=== PATIENT | female | born 1945 | race Caucasian/White ===

== ENCOUNTER → 2020-11-05 | Outpatient (CLI) | payer MEDICARE ==
[2020-11-05 17:26] LABS: T4, Free (Free Thyroxine) 1.3 ng/dL (0.80-1.80)
[2020-11-05 17:50] LABS: African American GFR (CKD) 10.9 (60.0-200.0); Anion Gap 9.7 mmol/L (4.00-12.00); BUN/Creat Ratio 8.6 Ratio (12.00-20.00); Calcium 9.2 mg/dL (8.7-10.3); Carbon Dioxide 31.3 mmol/L (21.6-31.8); Chol/HDL Ratio 2.82; LDL Cholesterol,Calculated 35.2 mg/dL (0.0-131.0); Non-African American GFR(CKD) 9.4 (60.0-200.0); VLDL Calculation 15.8 mg/dL (5.00-40.00)
[2020-11-05 21:43] LABS: Hemoglobin A1C 9.3 % (4.0-6.0)
== END | disposition home or self-care (01) ==
LOC: LABWHC1 09:32
PROVIDERS: ATTEND Family Medicine
DX: E11.65 Type 2 diabetes mellitus with hyperglycemia (principal); E03.9 Hypothyroidism, unspecified
CPT/HCPCS: 36415; 80048; 80061; 83036; 84439; 84443

== ENCOUNTER 2021-01-12 07:06 | Day surgery (SDC) | payer MEDICARE ==
[2021-01-11 09:38] VITALS: BMI 33.5
[~2021-01-12 07:06] MED LIST: HYDROmorphone 0.5 MG/0.5 ML SYRINGE IVP PRN; LACTATED RINGERS 1,000 ML IV SCH; LIDOCAINE 1% (10MG/ML) FOR IV START INTRADERMA PRN; ONDANSETRON 4 MG/2 ML VIAL IVP ONE
[2021-01-12] MEDS ORDERED: LACTATED RINGERS 1,000 ML IV ONE (08:06)
[2021-01-12 08:18] LABS: Glucose,Whole Blood 110 mg/dL (75-99)
[2021-01-12] MEDS ORDERED: MIDAZOLAM 2 MG/2 ML VIAL IVP ONE (08:50)
--- NOTE | 2021-01-12 09:09 | P.HPIHPCON ---
History of Present Illness H&P Date: 01/12/21 Arielle is a 75 year old female with end-stage renal disease getting dialysis currently via a chest wall dialysis catheter. She previously had a right brachiocephalic fistula creation. It was found to be of appropriate size however there was significant difficulty in accessing due to significant tor tuosity and depth. Discussion was had with the family regarding going forward with a transposition to try to continue to utilize this area. Again a repeat ultrasound was performed showing adequate size no evidence of areas of stenosis. Consent for Procedure: I have explained the operation/procedure to the patient, including the risks, benefits, side effects, alternative therapies (including not receiving the proposed treatment or service), the likelihood of the patient achieving his/her goals, and potential recuperation problems for the procedure/sedation/analgesia, as well as any blood products, if indicated. I also explained to the patient the risks, benefits and side effects of the alternatives, as well as the risks related to not receiving the proposed procedure, care, treatment, or services. Past Medical History Past Medical History: Coronary Artery Disease (CAD), Cancer, CVA/TIA, Diabetes Mellitus, Hyperlipidemia, Hypertension, Myocardial Infarction ([place]), Osteoarthritis (OA), Renal Disease, Sleep Apnea/CPAP/BIPAP, Thyroid Disorder Additional Past Medical History / Comment(s): stroke Jan 2020-diff walking-uses a walker also effects speech, no cpap used, diarrhea, hemodialysis MOWEFR, hx breast cancer(radiation) Last Myocardial Infarction Date:: unknown History of Any Multi-Drug Resistant Organisms: MRSA Date of last positivie culture/infection: 2017 MDRO Source:: face Past Surgical History: Breast Surgery, Cholecystectomy, Coronary Bypass/CABG, Hysterectomy, Joint Replacement Additional Past Surgical History / Comment(s): left breast lumpectomy, mary jane knee replacement, mary jane cataracts, triple CABG 45-5 yrs ago, port in chest for dialysis Past Anesthesia/Blood Transfusion Reactions: No Reported Reaction Smoking Status: Never smoker - Past Family History Daughter(s) Family Medical History: Cancer Additional Family Medical History / Comment(s): breast Medications and Allergies Home Medications Medication Instructions Recorded Confirmed Type Acetaminophen [Tylenol] 650 mg PO Q4H PRN 01/11/21 01/11/21 History Aspirin [Adult Low Dose Aspirin EC] 81 mg PO DAILY 01/11/21 01/11/21 History Clopidogrel [Plavix] 75 mg PO DAILY 01/11/21 01/11/21 History Diphenoxylate HCl/Atropine 1 tab PO BID PRN 01/11/21 01/11/21 History [Lomotil 2.5-0.025 mg Tablet] Docusate [Colace] 100 mg PO DAILY PRN 01/11/21 01/11/21 History Insulin Aspart [NovoLOG Flexpen] 10 units SQ ACHS PRN 01/11/21 01/11/21 History Insulin Degludec [Tresiba] 16 units SQ QAM 01/11/21 01/11/21 History Levothyroxine Sodium [Synthroid] 75 mcg PO DAILY 01/11/21 01/11/21 History Metoprolol Tartrate [Lopressor] 50 mg PO BID 01/11/21 01/11/21 History Nitroglycerin 0.4 mg SUBLINGUAL Q5M PRN 01/11/21 01/11/21 History Ondansetron [Zofran] 4 mg PO DAILY PRN 01/11/21 01/11/21 History Pantoprazole [Protonix] 40 mg PO DAILY 01/11/21 01/11/21 History Prochlorperazine [Compazine] 10 mg PO Q8H PRN 01/11/21 01/11/21 History Rivastigmine 4.6MG/24Hr Patch 1 patch TRANSDERM Q24HR 01/11/21 01/11/21 History [Exelon 4.6MG/24Hr Patch] Rosuvastatin [Crestor] 10 mg PO HS 01/11/21 01/11/21 History Triphrocaps 1 tab PO HS 01/11/21 01/11/21 History amLODIPine [Norvasc] 2.5 mg PO BID 01/11/21 01/11/21 History Allergies Allergy/AdvReac Type Severity Reaction Status Date / Time Iodinated Contrast Media Allergy Severe Anaphylaxis Verified 01/11/21 09:06 latex Allergy Itching Verified 01/11/21 09:07 Surgical - Exam Vital Signs Temp Pulse Resp BP Pulse Ox 98.2 F 80 18 146/66 93 L 01/12/21 08:05 01/12/21 08:05 01/12/21 08:05 01/12/21 08:05 01/12/21 08:05 Gen. is a pleasant and cooperative female in no acute distress resting comfortably. HEENT is normocephalic, atraumatic, extraocular motion intact. Heart appears regular at this time. Lungs are clear bilaterally although diminished. Extremities show no clubbing cyanosis or edema. Her right upper extremity fistula has a good palpable thrill. Normal mood and affect. Cranial nerves II through XII grossly intact although weak overall Results - Labs Abnormal Lab Results - Last 24 Hours (Table) 01/12/21 Range/Units 08:14 POC Glucose (mg/dL) 110 H (75-99) mg/dL Assessment and Plan Assessment: End-stage renal disease Non-utilizable right upper extremity brachial cephalic fistula Plan: Plan for a brachiocephalic fistula transposition. Risks and benefits were discussed. Seemingly understand.
[2021-01-12] MEDS ORDERED: fentaNYL (PF) 50 MCG/ML 2 ML AMP ONE (09:15)
[2021-01-12] MEDS ORDERED: ceFAZolin 1,000 MG VIAL ONE (09:15)
[2021-01-12] MEDS ORDERED: PROPOFOL 10 MG/ML 20 ML VIAL IV ONE (09:15)
[2021-01-12] MEDS ORDERED: ROPIVACAINE 5 MG/ML 30 ML VIAL ONE (09:15)
[2021-01-12] MEDS ORDERED: HEPARIN SODIUM,PORCINE 5,000 UNIT/ML 1 ML VIAL ONE (09:15)
[2021-01-12] MEDS ORDERED: SODIUM CHLORIDE 0.9% 100 ML BAG ONE (09:15)
[2021-01-12] MEDS ORDERED: SODIUM CHLORIDE 0.9% 500 ML 500 ML IV ONE (09:19)
[2021-01-12] MEDS ORDERED: LIDOCAINE 1% INJ 10MG/ML (20 ML MDV) SQ ONE ×2 (09:40)
[2021-01-12] MEDS ORDERED: HEPARIN SODIUM,PORCINE 2,000 UNIT in SODIUM CHLORIDE 0.9% 500 ML 500 ML IRRIGATION ONE (09:40)
[2021-01-12] MEDS ORDERED: ceFAZolin 2,000 MG in SODIUM CHLORIDE 0.9% 500 ML IRRIGATION ONE (09:40)
[2021-01-12] MEDS ORDERED: BUPIVACAINE (PF) 0.5% 30 ML VIAL SQ ONE ×2 (09:40)
--- NOTE | 2021-01-12 10:00 | P.ANPRN ---
Procedure Note - Anesthesia - Nerve Block Performed Right Supraclavicular Time Out Performed: Yes (08:49) Date of Procedure: 01/12/21 Procedure Start Time: :49 Procedure Stop Time: :58 Location of Patient: PreOp Indication: Acute Post-Operative Pain, Requested by Surgeon (Dr Nicolas) Sedation Type: Sedate with meaningful contact maintained Preparation: Sterile Prep Position: Supine Catheter: None Needle Types: Pajunk Needle Gauge: Other (see comment) (22g) Ultrasound used to visualize needle placement: Yes Ultrasound used to observe medication spread: Yes Injectate: 0.5% Ropivacaine (see comment for volume) (20cc) Blood Aspirated: No Pain Paresthesia on Injection Noted: No Resistance on Injection: Normal Image Stored and Saved: Yes Events: Uneventful and Well Tolerated
[2021-01-12] MEDS ORDERED: GELATIN SPONGE,ABSORB (LARGE) 1 EACH SPONGE TOPICAL ONE ×2 (12:10→13:54)
[2021-01-12] MEDS ORDERED: THROMBIN (BOVINE) 5,000 UNIT VIAL TOPICAL ONE ×2 (12:10→13:54)
[2021-01-12 14:48] VITALS: TEMP 96.8
--- NOTE | 2021-01-12 14:53 | P.OP ---
Date of Procedure: 01/12/21 Description of Procedure: Preoperative diagnosis: End-stage renal disease, non-utilizable right upper extremity brachiocephalic fistula, tortuosity and depth Postoperative diagnosis: Same Procedure: Brachiocephalic fistula transposition Surgeon: Sally Nicolas D.O. EBL: [200 mL] IV fluids: [see records] Urine output: [not measured] Drains: [None] Complications: [None immediately apparent] Condition: [Stable to recovery] Operative indication and findings: [Patient is a 75-year-old female who has a right upper extremity brachiocephalic fistula that was created previously but unfortunately was unable to be utilized due to its tortuosity and depth. She has been using a tunneled dialysis catheter for dialysis at this time. It was decided she might be a candidate for a transposition of this area therefore risks and benefits were discussed and she is brought in today for this procedure. She seemingly understood and wanted to proceed] Procedure in detail: [The patient was taken to the operative suite and placed in supine position. The right upper extremity is prepped and draped in usual sterile fashion. A preprocedure timeout was performed, all parties were in agreement. Once anesthesia was adequate, incision was made over the previous incision at the level of the radial cephalic anastomosis. The incision was carried down through the scar tissue and subcuticular tissues to the level of the fistula itself. There is very dense adherent scar tissue throughout the for tedious dissection was performed to encircle the fistula. This is then dissected free in the direction of the vein. There was significant amounts of scar tissue throughout this area and previous areas of clip placement. That point a little further proximally, a counterincision was made overlying the vein. The subcutaneous tissues divided with electrocautery to the level of the vein which was encircled again there was a more than normal amount of scar tissue in the area therefore tediously the vein was dissected. This is dissected to the point at which the proximal and distal portions were in conjunction and the vein was dissected free throughout. The vein was then ligated at the portion just distal to the anastomosis. The stump was oversewn with 6-0 Prolene in running fashion with good hemostasis. The vein was then brought out through the secondary incision. Further dissection was performed around the vein more proximally in the arm and again this was done circumferentially. Another counterincision was made more proximal in the arm and at that level unfortunately we did enter the fistula. Bleeding was stopped with running suture of 6-0 Prolene. At that point given the level of dissection and the amount of scarred adherent tissue, the skin bridges were cut along the secondary incision to create a larger incision. The vein was then continued to be dissected free and was up to the level just about the shoulder. At that point the brachial artery more proximally to the previous anastomosis was identified and was encircled proximally and distally with vessel loops. With appropriate tension on the flaps, tunnel was made in a more superficial position.. The patient was heparinized and flow was occluded through the brachial artery. An arteriotomy was performed. There was significant calcific disease to the brachial artery as well. An anastomosis was created between the artery and cephalic vein with 6-0 Prolene. Prior to conclusion of the anastomosis the artery was flushed and the vein was allowed to backbleed. The anastomosis completed. Interrupted sutures of 6-0 Prolene were used to aid in hemostasis. A Gelfoam. There was an area of the vein in the upper incision that did have some bleeding therefore an interrupted [id number] suture of 6-0 Prolene was placed with adequate hemostasis. The area was then copiously irrigated and there was no evidence of active bleeding through the tunnel. The incisions then were closed with deep dermal 3-0 Vicryl in interrupted fashion and the skin was reapproximated with running 4-0 Monocryl subcu tissue fashion. Dressing and light pressure dressing was placed. The patient was allowed awaken from anesthesia and transferred to recovery in stable condition having tolerated her procedure well.] Plan - Discharge Summary Discharge Rx Participant: No New Discharge Prescriptions: New Acetaminophen-Codeine 300-30mg [Tylenol w/codeine #3] 1 tab PO Q4H PRN 3 Days #18 tablet PRN Reason: Pain No Action Aspirin [Adult Low Dose Aspirin EC] 81 mg PO DAILY Clopidogrel [Plavix] 75 mg PO DAILY Docusate [Colace] 100 mg PO DAILY PRN PRN Reason: Constipation Insulin Aspart [NovoLOG Flexpen] 10 units SQ ACHS PRN PRN Reason: Blood Sugar - High Ondansetron [Zofran] 4 mg PO DAILY PRN PRN Reason: Nausea And Vomiting Rivastigmine 4.6MG/24Hr Patch [Exelon 4.6MG/24Hr Patch] 1 patch TRANSDERM Q24HR Triphrocaps 1 tab PO HS Acetaminophen [Tylenol] 650 mg PO Q4H PRN PRN Reason: Pain amLODIPine [Norvasc] 2.5 mg PO BID Diphenoxylate HCl/Atropine [Lomotil 2.5-0.025 mg Tablet] 1 tab PO BID PRN PRN Reason: Diarrhea Insulin Degludec [Tresiba] 16 units SQ QAM Levothyroxine Sodium [Synthroid] 75 mcg PO DAILY Metoprolol Tartrate [Lopressor] 50 mg PO BID Pantoprazole [Protonix] 40 mg PO DAILY Prochlorperazine [Compazine] 10 mg PO Q8H PRN PRN Reason: Nausea Rosuvastatin [Crestor] 10 mg PO HS Nitroglycerin 0.4 mg SUBLINGUAL Q5M PRN PRN Reason: Chest Pain Discharge Medication List Acetaminophen [Tylenol] 650 mg PO Q4H PRN 01/11/21 [History] Aspirin [Adult Low Dose Aspirin EC] 81 mg PO DAILY 01/11/21 [History] Clopidogrel [Plavix] 75 mg PO DAILY 01/11/21 [History] Diphenoxylate HCl/Atropine [Lomotil 2.5-0.025 mg Tablet] 1 tab PO BID PRN 01/11/21 [History] Docusate [Colace] 100 mg PO DAILY PRN 01/11/21 [History] Insulin Aspart [NovoLOG Flexpen] 10 units SQ ACHS PRN 01/11/21 [History] Insulin Degludec [Tresiba] 16 units SQ QAM 01/11/21 [History] Levothyroxine Sodium [Synthroid] 75 mcg PO DAILY 01/11/21 [History] Metoprolol Tartrate [Lopressor] 50 mg PO BID 01/11/21 [History] Nitroglycerin 0.4 mg SUBLINGUAL Q5M PRN 01/11/21 [History] Ondansetron [Zofran] 4 mg PO DAILY PRN 01/11/21 [History] Pantoprazole [Protonix] 40 mg PO DAILY 01/11/21 [History] Prochlorperazine [Compazine] 10 mg PO Q8H PRN 01/11/21 [History] Rivastigmine 4.6MG/24Hr Patch [Exelon 4.6MG/24Hr Patch] 1 patch TRANSDERM Q24HR 01/11/21 [History] Rosuvastatin [Crestor] 10 mg PO HS 01/11/21 [History] Triphrocaps 1 tab PO HS 01/11/21 [History] amLODIPine [Norvasc] 2.5 mg PO BID 01/11/21 [History] Acetaminophen-Codeine 300-30mg [Tylenol w/codeine #3] 1 tab PO Q4H PRN 3 Days #18 tablet 01/12/21 [Rx] Follow up Appointment(s)/Referral(s): Sally Nicolas DO [STAFF PHYSICIAN] - 1 Week Activity/Diet/Wound Care/Special Instructions: Leave dressing in place for 2 days. May shower once the dressing is removed. Likely to be bruising. May resume home medications and activity as tolerated Discharge Disposition: HOME SELF-CARE
[2021-01-12 15:02] LABS: Glucose,Whole Blood 120 mg/dL (75-99)
[2021-01-12 16:19] VITALS: BP 137/65; PULSE 94; RESP 16
== END 2021-01-12 16:22 | disposition home or self-care (01) ==
LOC: OR 07:06
PROVIDERS: ATTEND Surgery
DX: I12.0 Hypertensive chronic kidney disease with stage 5 chronic kidney disease or end stage renal disease (principal); N18.6 End stage renal disease; I25.10 Atherosclerotic heart disease of native coronary artery without angina pectoris; E11.9 Type 2 diabetes mellitus without complications; E78.5 Hyperlipidemia, unspecified; M19.90 Unspecified osteoarthritis, unspecified site; E07.9 Disorder of thyroid, unspecified; I25.2 Old myocardial infarction; Z86.73 Personal history of transient ischemic attack (TIA), and cerebral infarction without residual deficits
CPT/HCPCS: 36818; 64999; 76942; J2250; J1644; J0690 ×2; J2405; J2001; J3010; J2795; J2704

== ENCOUNTER → 2021-02-16 | Outpatient (CLI) | payer MEDICARE ==
[2021-02-16 17:22] LABS: Chol/HDL Ratio 2.67 Ratio; LDL Cholesterol,Calculated 36.4 mg/dL (0.0-131.0)
[2021-02-16 17:56] LABS: African American GFR (CKD) 9.7 (60.0-200.0); BUN/Creat Ratio 6.68 Ratio (12.00-20.00); Blood Urea Nitrogen 31.4 mg/dL (9.0-27.0); Calcium 9.5 mg/dL (8.7-10.3); Carbon Dioxide 28.2 mmol/L (20.0-27.5); Chloride 95 mmol/L (96-109); Glucose 182 mg/dL (70-110); Non-African American GFR(CKD) 8.4 (60.0-200.0); Potassium 5.2 mmol/L (3.5-5.5); Sodium 139 mmol/L (135-145)
== END | disposition home or self-care (01) ==
LOC: LABWHC1 09:57
PROVIDERS: ATTEND Family Medicine
DX: E03.9 Hypothyroidism, unspecified (principal); E11.65 Type 2 diabetes mellitus with hyperglycemia
CPT/HCPCS: 36415; 80048; 80061; 83036; 84439; 84443

== ENCOUNTER 2021-03-19 18:35 | Inpatient (IN) | payer MEDICARE ==
[2021-03-19] MEDS ORDERED: ONDANSETRON 4 MG/2 ML VIAL IVP STA (18:59)
[2021-03-19] MEDS ORDERED: ACETAMINOPHEN TAB 325 MG TAB PO STA (18:59)
[2021-03-19] MEDS ORDERED: MORPHINE SULFATE 2 MG/ML SYRINGE IVP STA (18:59)
[2021-03-19] MEDS ORDERED: VANCOMYCIN IV PER PHARMACY 1 EACH MISC MISCELLANE PRN (19:00)
[2021-03-19] MEDS ORDERED: VANCOMYCIN 1,500 MG in SODIUM CHLORIDE 0.9% 250 ML IVPB STA (19:04)
--- NOTE | 2021-03-19 20:00 | ED ---
General Adult HPI - General Chief complaint: Extremity Problem,Nontraumatic Stated complaint: toe pain Time Seen by Provider: 03/19/21 18:53 Source: patient, family Mode of arrival: wheelchair Limitations: no limitations - History of Present Illness Initial comments: 76 year-old female patient presents for evaluation of wound to the left second toe with redness to the foot and leg. Patient states the wound has been present for quite some time. She did recently start receiving wound care at the wound center. She is currently taking Bactrim, has 3 doses left. She denies any fever or chills. Reports decreased appetite and nausea. Reports intermittent vomiting. No diarrhea or constipation. She does have diabetes and receives hemodialysis. She reports some pain to the foot, especially at night. Patient denies any recent rash, cough, shortness of breath, chest pain, abdominal pain, back pain, numbness, tingling, dizziness, weakness, hematuria, dysuria, urinary urgency, urinary frequency, headache, visual changes, or any other complaints. - Related Data Home Medications Medication Instructions Recorded Confirmed Acetaminophen [Tylenol] 650 mg PO Q4H PRN 01/11/21 01/11/21 Aspirin [Adult Low Dose Aspirin EC] 81 mg PO DAILY 01/11/21 01/11/21 Clopidogrel [Plavix] 75 mg PO DAILY 01/11/21 01/11/21 Diphenoxylate HCl/Atropine 1 tab PO BID PRN 01/11/21 01/11/21 [Lomotil 2.5-0.025 mg Tablet] Docusate [Colace] 100 mg PO DAILY PRN 01/11/21 01/11/21 Insulin Aspart [NovoLOG Flexpen] 10 units SQ ACHS PRN 01/11/21 01/11/21 Insulin Degludec [Tresiba] 16 units SQ QAM 01/11/21 01/11/21 Levothyroxine Sodium [Synthroid] 75 mcg PO DAILY 01/11/21 01/11/21 Metoprolol Tartrate [Lopressor] 50 mg PO BID 01/11/21 01/11/21 Nitroglycerin 0.4 mg SUBLINGUAL Q5M PRN 01/11/21 01/11/21 Ondansetron [Zofran] 4 mg PO DAILY PRN 01/11/21 01/11/21 Pantoprazole [Protonix] 40 mg PO DAILY 01/11/21 01/11/21 Prochlorperazine [Compazine] 10 mg PO Q8H PRN 01/11/21 01/11/21 Rivastigmine 4.6MG/24Hr Patch 1 patch TRANSDERM Q24HR 01/11/21 01/11/21 [Exelon 4.6MG/24Hr Patch] Rosuvastatin [Crestor] 10 mg PO HS 01/11/21 01/11/21 Triphrocaps 1 tab PO HS 01/11/21 01/11/21 amLODIPine [Norvasc] 2.5 mg PO BID 01/11/21 01/11/21 Previous Rx's Medication Instructions Recorded Acetaminophen-Codeine 300-30mg 1 tab PO Q4H PRN 3 Days #18 tablet 01/12/21 [Tylenol w/codeine #3] Allergies Allergy/AdvReac Type Severity Reaction Status Date / Time Iodinated Contrast Media Allergy Severe Anaphylaxis Verified 03/19/21 18:43 latex Allergy Itching Verified 03/19/21 18:43 Review of Systems ROS Statement: Those systems with pertinent positive or pertinent negative responses have been documented in the HPI. ROS Other: All systems not noted in ROS Statement are negative. Past Medical History Past Medical History: Coronary Artery Disease (CAD), Cancer, CVA/TIA, Diabetes Mellitus, Hyperlipidemia, Hypertension, Myocardial Infarction ([place]), Osteoarthritis ([place]), Renal Disease, Sleep Apnea/CPAP/BIPAP, Thyroid Disorder Additional Past Medical History / Comment(s): stroke Jan 2020-diff walking-uses a walker also effects speech, no cpap used, diarrhea, hemodialysis MOWEFR, hx breast cancer(radiation) Last Myocardial Infarction Date:: unknown History of Any Multi-Drug Resistant Organisms: MRSA Date of last positivie culture/infection: 2017 MDRO Source:: face Past Surgical History: Breast Surgery, Cholecystectomy, Coronary Bypass/CABG, Hysterectomy, Joint Replacement Additional Past Surgical History / Comment(s): left breast lumpectomy, mary jane knee replacement, mary jane cataracts, triple CABG 45-5 yrs ago, port in chest for dialysis Past Anesthesia/Blood Transfusion Reactions: No Reported Reaction Past Psychological History: No Psychological Hx Reported Smoking Status: Never smoker Past Alcohol Use History: None Reported Past Drug Use History: None Reported - Past Family History Daughter(s) Family Medical History: Cancer Additional Family Medical History / Comment(s): breast General Exam Limitations: no limitations General appearance: alert, in no apparent distress, other (This is a well- developed, well-nourished adult female in no acute distress.) Respiratory exam: Present: normal lung sounds bilaterally. Absent: respiratory distress, wheezes, rales, rhonchi, stridor Cardiovascular Exam: Present: regular rate, normal rhythm, normal heart sounds. Absent: systolic murmur, diastolic murmur, rubs, gallop, clicks GI/Abdominal exam: Present: soft, normal bowel sounds. Absent: distended, tenderness, guarding, rebound, rigid Extremities exam: Present: full ROM, normal capillary refill, other (There is ulcer noted to the left second toe with red streaking up the foot, patch of cellulitis to the dorsal becker. No drainage from the toe noted. Pedal and posttibial pulses diminished.). Absent: normal inspection, tenderness, pedal edema, joint swelling, calf tenderness Neurological exam: Present: alert, oriented X3, CN II-XII intact Psychiatric exam: Present: normal affect, normal mood Skin exam: Present: warm, dry, intact, normal color. Absent: rash Course Vital Signs 03/19/21 03/19/21 03/19/21 18:36 19:44 21:00 Temperature 97.7 F 97.9 F Pulse Rate 73 66 Respiratory 20 18 Rate Blood Pressure 152/68 129/62 O2 Sat by Pulse 95 95 Oximetry Medical Decision Making - Medical Decision Making 76 year-old female patient presents to the emergency department for evaluation of left 2nd toe wound with red streaking up her foot. Physical exam did reveal dry ulcer to the left dorsal toe, red streaking up the dorsal foot, and evidence for cellulitis to the left lower leg. Labs were delayed initially due to poor lab draw, when results came in there was elevated white blood cell count at 12.0. Potassium was 6.3, creatinine 7.4. We did start vancomycin and rocephin. Insulin, dextrose, and kayexalate given for high potassium. Potassium will be redrawn every 4 hours. We will consult nephrology for dialysis while in hospital. We will consult vascular for consult on the wound. Patient is agreeable to admission. Dr. Barragan accepted admission. My attending is Dr. Santiago hanson. - Lab Data Result diagrams: 03/19/21 21:16 03/19/21 21:16 Lab Results 03/19/21 03/19/21 03/19/21 Range/Units 21:10 21:16 21:16 WBC 12.0 H (3.8-10.6) k/uL RBC 3.08 L (3.80-5.40) m/uL Hgb 9.8 L (11.4-16.0) gm/dL Hct 29.6 L (34.0-46.0) % MCV 96.0 (80.0-100.0) fL MCH 31.7 (25.0-35.0) pg MCHC 33.1 (31.0-37.0) g/dL RDW 15.3 (11.5-15.5) % Plt Count 202 (150-450) k/uL MPV 7.4 Neutrophils % 84 % Lymphocytes % 8 % Monocytes % 4 % Eosinophils % 2 % Basophils % 0 % Neutrophils # 10.1 H (1.3-7.7) k/uL Lymphocytes # 1.0 (1.0-4.8) k/uL Monocytes # 0.5 (0-1.0) k/uL Eosinophils # 0.2 (0-0.7) k/uL Basophils # 0.0 (0-0.2) k/uL PT 11.1 (9.0-12.0) sec INR 1.0 (<1.2) APTT 55.0 H (22.0-30.0) sec Sodium (137-145) mmol/L Potassium (3.5-5.1) mmol/L Chloride (98-107) mmol/L Carbon Dioxide (22-30) mmol/L Anion Gap mmol/L BUN (7-17) mg/dL Creatinine (0.52-1.04) mg/dL Est GFR (CKD-EPI)AfAm (>60 ml/min/1.73 sqM) Est GFR (CKD-EPI)NonAf (>60 ml/min/1.73 sqM) Glucose (74-99) mg/dL Plasma Lactic Acid Otis 0.8 (0.7-2.0) mmol/L Calcium (8.4-10.2) mg/dL Total Bilirubin (0.2-1.3) mg/dL AST (14-36) U/L ALT (4-34) U/L Alkaline Phosphatase (38-126) U/L Total Protein (6.3-8.2) g/dL Albumin (3.5-5.0) g/dL 03/19/21 Range/Units 21:16 WBC (3.8-10.6) k/uL RBC (3.80-5.40) m/uL Hgb (11.4-16.0) gm/dL Hct (34.0-46.0) % MCV (80.0-100.0) fL MCH (25.0-35.0) pg MCHC (31.0-37.0) g/dL RDW (11.5-15.5) % Plt Count (150-450) k/uL MPV Neutrophils % % Lymphocytes % % Monocytes % % Eosinophils % % Basophils % % Neutrophils # (1.3-7.7) k/uL Lymphocytes # (1.0-4.8) k/uL Monocytes # (0-1.0) k/uL Eosinophils # (0-0.7) k/uL Basophils # (0-0.2) k/uL PT (9.0-12.0) sec INR (<1.2) APTT (22.0-30.0) sec Sodium 135 L (137-145) mmol/L Potassium 6.3 H* (3.5-5.1) mmol/L Chloride 95 L (98-107) mmol/L Carbon Dioxide 27 (22-30) mmol/L Anion Gap 13 mmol/L BUN 52 H (7-17) mg/dL Creatinine 7.41 H* (0.52-1.04) mg/dL Est GFR (CKD-EPI)AfAm 6 (>60 ml/min/1.73 sqM) Est GFR (CKD-EPI)NonAf 5 (>60 ml/min/1.73 sqM) Glucose 111 H (74-99) mg/dL Plasma Lactic Acid Otis (0.7-2.0) mmol/L Calcium 8.5 (8.4-10.2) mg/dL Total Bilirubin 0.5 (0.2-1.3) mg/dL AST 33 (14-36) U/L ALT 16 (4-34) U/L Alkaline Phosphatase 116 (38-126) U/L Total Protein 6.2 L (6.3-8.2) g/dL Albumin 3.3 L (3.5-5.0) g/dL - Radiology Data Radiology results: report reviewed, image reviewed 3 views of the left toes obtained. Report reviewed in its entirety. Impression by Dr. Cortez shows no evidence of osteomyelitis. Disposition Clinical Impression: Ulcer of toe of left foot, Cellulitis of left lower leg, Acute lymphangitis of left lower extremity, Hyperkalemia Disposition: ADMITTED IP TO THIS [facility] Condition: Serious Referrals: Luis Lira MD [Primary Care Provider] - 1-2 days Decision to Admit Reason: Admit from EC Decision Date: 03/19/21 Decision Time: 23:50
[2021-03-19 22:05] LABS: Basophils % (A) 0 %; Eosinophils # (A) 0.2 k/uL (0-0.7); Eosinophils % (A) 2 %; HCT 29.6 % (34.0-46.0); HGB 9.8 gm/dL (11.4-16.0); Lymphocytes % (A) 8 %; MCH 31.7 pg (25.0-35.0); MCHC 33.1 g/dL (31.0-37.0); Mean Platelet Volume 7.4; Monocytes # (A) 0.5 k/uL (0-1.0); Monocytes % (A) 4 %; Neutrophils # (A) 10.1 k/uL (1.3-7.7); Neutrophils % (A) 84 %; Platelet Count 202 k/uL (150-450); RBC 3.08 m/uL (3.80-5.40); RDW 15.3 % (11.5-15.5)
[2021-03-19 22:18] LABS: Prothrombin Time 11.1 sec (9.0-12.0)
[2021-03-19] MEDS ORDERED: diphenhydrAMINE 50 MG/ML 1 ML VIAL IVP STA (22:18)
[2021-03-19 22:23] LABS: Albumin 3.3 g/dL (3.5-5.0); Calcium 8.5 mg/dL (8.4-10.2); Total Bilirubin 0.5 mg/dL (0.2-1.3); Total Protein 6.2 g/dL (6.3-8.2)
--- NOTE | 2021-03-19 22:37 | XR ---
EXAMINATION TYPE: XR toes LT DATE OF EXAM: 03/19/2021 COMPARISON: NONE HISTORY: Second toe infection TECHNIQUE: 3 views FINDINGS: The toes appear intact. I see no fracture nor dislocation. There is no evidence of focal ancelmo ne destruction. Second toe appears intact. IMPRESSION: No evidence of osteomyelitis.
[2021-03-19 23:31] LABS: Potassium 6.3 mmol/L (3.5-5.1)
[2021-03-19] MEDS ORDERED: INSULIN REGULAR 100 UNIT/ML VIAL (IV) IV ONE (23:35)
[2021-03-19] MEDS ORDERED: DEXTROSE 50% SYRINGE 50 ML IVP STA (23:35)
[2021-03-19] MEDS ORDERED: CALCIUM GLUCONATE 1 GM in SODIUM CHLORIDE 0.9% 100 ML IVPB STA (23:36)
[2021-03-19] MEDS ORDERED: SODIUM POLYSTYRENE SULFONATE 15 GM/60 ML BOTTLE PO STA (23:48)
[2021-03-19] MEDS ORDERED: ACETAMINOPHEN TAB 325 MG TAB PO PRN (23:52)
[2021-03-19] MEDS ORDERED: NALOXONE 0.4 MG/ML 1 ML VIAL IV PRN (23:52)
[2021-03-19] MEDS ORDERED: ONDANSETRON 4 MG/2 ML VIAL IVP PRN (23:52)
[2021-03-20 10:21] LABS: Appearance,Urine Turbid (Clear); Bacteria,Urine Moderate /hpf; Bilirubin,Urine Negative (Negative); Blood,Urine Small (Negative); Budding Yeast,Urine Few /hpf; Color,Urine Yellow; Glucose,Urine (UA) 1+ (Negative); Hyaline Casts,Urine 12 /lpf (0-2); Ketones,Urine Negative (Negative); Leukocyte Esterase,Urine Large (Negative); Mucus,Urine Rare /hpf; Nitrite,Urine Negative (Negative); PH, Urine 7.5 (5.0-8.0); Protein,Urine 3+ (Negative); RBC,Urine 46 /hpf (0-5); Specific Gravity,Urine 1.019 (1.001-1.035); Squamous Epithelial Cell,Urine 118 /hpf (0-4); Urobilinogen,Urine <2.0 mg/dL (<2.0); WBC,Urine 129 /hpf (0-5)
--- NOTE | 2021-03-20 11:45 | P.HPIM ---
History of Present Illness H&P Date: 03/20/21 HISTORY OF PRESENT ILLNESS This is a 76-year-old female patient of Dr. Lira with past medical history of end-stage renal disease, CVA, coronary artery disease,, diabetes mellitus type 2 insulin requiring, hypertension, hyperlipidemia, hypothyroidism, peripheral vascular disease, obstructive sleep apnea without CPAP, history of breast cancer status post radiation. Patient has recently been transitioned to HD and Dr. Nicolas or [place] 01/12/2021. Patient States That She Is Normally Saturday Dialysis and Denies Missing Any Recent Appointments. She Has a Left-Sided Port in Place and Also a Right-Sided Fistula. Patient presented with complaints of wound to the left second toe and redness to the left lower extremity been going on for extended period of time. She is established with the wound healing Center and recently on Bactrim. Patient presented to [facility] emergency center WBC 12.0, hemoglobin 9.8, platelet count 202. INR 1.0. Sodium 135, potassium 6.3 with repeat 5.7, chloride 95, CO2 27, BUN 52 creatinine 7.41. Blood sugar 111. Liver function tests were normal. Urinalysis turbid, leukoesterase large, RBCs 46, wbc's 129, squamous cells 118. Carotid virus PCR not detected. X-ray left toes showed no evidence of osteomyelitis. Patient seen today in the emergency center waiting for a bed on the cardiac stepdown unit. Consults in place with infectious disease and vascular surgery. REVIEW OF SYSTEMS Constitutional: No fever, no chills, no night sweats. No weight change. No weakness, fatigue or lethargy. No daytime sleepiness. EENT: No headache. No blurred vision or double vision, no loss of vision. No loss of Hearing, no ringing in the ears, no dizziness. No nasal drainage or congestion. No epistaxis. No sore throat. Lungs: No shortness of breath, cough, no sputum production. No wheezing. Cardiovascular: No chest pain, no lower extremity edema. No palpitations. No paroxysmal nocturnal dyspnea. No orthopnea. No lightheadedness or dizziness. No syncopal episodes. Abdominal: No abdominal pain. No nausea, vomiting. No diarrhea. No constipation. No bloody or tarry stools. No loss of appetite. Genitourinary: No dysuria, increased frequency, urgency. No urinary retention. Musculoskeletal: No myalgias. No muscle weakness, no gait dysfunction, no frequent falls. No back pain. No neck pain. Integumentary: Reported left toe wounds, no lesions. No rash or pruritus. No unusual bruising. No change in hair or nails. Neurologic: No aphasia. No facial droop. No change in mentation. No head injury. No headache. No paralysis. No paresthesia. Psychiatric: No depression. No anxiety. No mood swings. Endocrine: No abnormal blood sugars. No weight change. No excessive sweating or thirst. No cold intolerance. SOCIAL HISTORY Patient is a lifelong nonsmoker, no alcohol abuse, no marijuana or illicit drug use. Patient is retired schoolteacher. She lives at home with her . He drives her to dialysis and is the primary caregiver. Patient relates short-term memory deficits and stroke 1 year ago. FAMILY HISTORY Mother at age 90 from old age with history of diabetes. Father at age 70 with history of diabetes. Patient has 2 sisters that she does not know their medical history. She has 1 brother that was adopted. Patient has 2 daughters with no major medical problems. PHYSICAL EXAMINATION Gen: This is a 76-year-old female. Patient is resting in the ER stretcher and appears to be comfortable and in no acute distress. HEENT: Head is atraumatic, normocephalic. Pupils equal, round. Sclerae is anicteric. NECK: Supple. No JVD. No lymphadenopathy. No thyromegaly. LUNGS: Clear to auscultation. No wheezes or rhonchi. No intercostal retra ctions. HEART: Regular rate and rhythm. No murmur. ABDOMEN: Soft. Bowel sounds are present. No masses. No tenderness. EXTREMITIES: No pedal edema. No calf tenderness. Necrotic tissue to the left s econd toe. NEUROLOGICAL: Patient is awake, alert and oriented x3. Cranial nerves 2 through 12 are grossly intact. ASSESSMENT AND PLAN 1. Diabetic and peripheral vascular disease ulcer to the left second toe . Consult with vascular surgery, infectious disease. Continue antibiotics in the form of ceftriaxone and vancomycin, consult to wound healing Center where patient has been established. Blood culture in progress. 2. Diabetes mellitus type 2 insulin requiring. Patient will be resumed on home medications, NovoLog scale before meals and at bedtime, hemoglobin A1c 7.6. 3. End-stage renal disease on hemodialysis Saturday. Consult with nephrology. 4. Hyperkalemia secondary to acute kidney injury. 5. Coronary artery disease. 6. History of CVA with short-term memory deficit. 7. Hypertension. 8. Hyperlipidemia. 9. Hypothyroidism. 10. Peripheral vascular disease. Continue Plavix. 11. History of obstructive sleep apnea not utilizing CPAP. 12. History of breast cancer status post radiation, stable. 13. DVT prophylaxis. Heparin subcu. 14. GI prophylaxis. Protonix. 16. COVID-19 testing negative. Patient has been hospitalized during a pandemic. Patient will be admitted to the hospital for a minimum of 2 night stay. DISCHARGE PLAN TBD. PT and OT consults. Impression and plan of care have been directed as dictated by the signing physician. Chula Perdomo nurse practitioner acting as scribe for signing physician. Past Medical History Past Medical History: Coronary Artery Disease (CAD), Cancer, CVA/TIA, Diabetes Mellitus, Hyperlipidemia, Hypertension, Myocardial Infarction ([place]), Osteoarthritis (OA), Renal Disease, Sleep Apnea/CPAP/BIPAP, Thyroid Disorder Additional Past Medical History / Comment(s): stroke Jan 2020-diff walking-uses a walker also effects speech, no cpap used, diarrhea, hemodialysis MOWEFR, hx breast cancer(radiation) Last Myocardial Infarction Date:: unknown History of Any Multi-Drug Resistant Organisms: MRSA Date of last positivie culture/infection: 2017 MDRO Source:: face Past Surgical History: Breast Surgery, Cholecystectomy, Coronary Bypass/CABG, Hysterectomy, Joint Replacement Additional Past Surgical History / Comment(s): left breast lumpectomy, mary jane knee replacement, mary jane cataracts, triple CABG 45-5 yrs ago, port in chest for dialysis Past Anesthesia/Blood Transfusion Reactions: No Reported Reaction Past Psychological History: No Psychological Hx Reported Smoking Status: Never smoker Past Alcohol Use History: None Reported Past Drug Use History: None Reported - Past Family History Daughter(s) Family Medical History: Cancer Additional Family Medical History / Comment(s): breast Medications and Allergies Home Medications Medication Instructions Recorded Confirmed Type Acetaminophen [Tylenol] 650 mg PO Q4H PRN 01/11/21 01/11/21 History Aspirin [Adult Low Dose Aspirin EC] 81 mg PO DAILY 01/11/21 01/11/21 History Clopidogrel [Plavix] 75 mg PO DAILY 01/11/21 01/11/21 History Diphenoxylate HCl/Atropine 1 tab PO BID PRN 01/11/21 01/11/21 History [Lomotil 2.5-0.025 mg Tablet] Docusate [Colace] 100 mg PO DAILY PRN 01/11/21 01/11/21 History Insulin Aspart [NovoLOG Flexpen] 10 units SQ ACHS PRN 01/11/21 01/11/21 History Insulin Degludec [Tresiba] 16 units SQ QAM 01/11/21 01/11/21 History Levothyroxine Sodium [Synthroid] 75 mcg PO DAILY 01/11/21 01/11/21 History Metoprolol Tartrate [Lopressor] 50 mg PO BID 01/11/21 01/11/21 History Nitroglycerin 0.4 mg SUBLINGUAL Q5M PRN 01/11/21 01/11/21 History Ondansetron [Zofran] 4 mg PO DAILY PRN 01/11/21 01/11/21 History Pantoprazole [Protonix] 40 mg PO DAILY 01/11/21 01/11/21 History Prochlorperazine [Compazine] 10 mg PO Q8H PRN 01/11/21 01/11/21 History Rivastigmine 4.6MG/24Hr Patch 1 patch TRANSDERM Q24HR 01/11/21 01/11/21 History [Exelon 4.6MG/24Hr Patch] Rosuvastatin [Crestor] 10 mg PO HS 01/11/21 01/11/21 History Triphrocaps 1 tab PO HS 01/11/21 01/11/21 History amLODIPine [Norvasc] 2.5 mg PO BID 01/11/21 01/11/21 History Acetaminophen-Codeine 300-30mg 1 tab PO Q4H PRN 3 Days #18 tablet 01/12/21 Rx [Tylenol w/codeine #3] Allergies Allergy/AdvReac Type Severity Reaction Status Date / Time Iodinated Contrast Media Allergy Severe Anaphylaxis Verified 03/19/21 18:43 latex Allergy Itching Verified 03/19/21 18:43 Physical Exam Vitals: Vital Signs Temp Pulse Resp BP Pulse Ox 03/20/21 06:51 97.8 F 64 18 118/49 96 03/20/21 02:00 71 18 117/52 98 03/19/21 23:00 68 18 118/66 98 03/19/21 21:00 97.9 F 03/19/21 19:44 66 18 129/62 95 03/19/21 18:36 97.7 F 73 20 152/68 95 Intake and Output 03/19/21 03/20/21 03/20/21 22:59 06:59 14:59 Other: Weight 83.915 kg Results CBC & Chem 7: 03/19/21 21:16 03/20/21 07:11 Labs: Abnormal Lab Results - Last 24 Hours (Table) 03/19/21 03/19/21 03/19/21 Range/Units 21:16 21:16 21:16 WBC 12.0 H (3.8-10.6) k/uL RBC 3.08 L (3.80-5.40) m/uL Hgb 9.8 L (11.4-16.0) gm/dL Hct 29.6 L (34.0-46.0) % Neutrophils # 10.1 H (1.3-7.7) k/uL APTT 55.0 H (22.0-30.0) sec Sodium 135 L (137-145) mmol/L Potassium 6.3 H* (3.5-5.1) mmol/L Chloride 95 L (98-107) mmol/L BUN 52 H (7-17) mg/dL Creatinine 7.41 H* (0.52-1.04) mg/dL Glucose 111 H (74-99) mg/dL Total Protein 6.2 L (6.3-8.2) g/dL Albumin 3.3 L (3.5-5.0) g/dL 03/20/21 03/20/21 Range/Units 02:59 07:11 WBC (3.8-10.6) k/uL RBC (3.80-5.40) m/uL Hgb (11.4-16.0) gm/dL Hct (34.0-46.0) % Neutrophils # (1.3-7.7) k/uL APTT (22.0-30.0) sec Sodium (137-145) mmol/L Potassium 5.7 H 5.7 H (3.5-5.1) mmol/L Chloride (98-107) mmol/L BUN (7-17) mg/dL Creatinine (0.52-1.04) mg/dL Glucose (74-99) mg/dL Total Protein (6.3-8.2) g/dL Albumin (3.5-5.0) g/dL
[2021-03-20] MEDS ORDERED: diphenhydrAMINE 50 MG/ML 1 ML VIAL IVP STA (13:53)
[2021-03-20] MEDS ORDERED: VANCOMYCIN 1,500 MG in SODIUM CHLORIDE 0.9% 250 ML IVPB ONE (14:00)
[2021-03-20] MEDS ORDERED: DOCUSATE 100 MG CAP PO PRN (14:30)
[2021-03-20] MEDS ORDERED: ACETAMINOPHEN TAB 325 MG TAB PO PRN (14:30)
[2021-03-20] MEDS ORDERED: DIPHENOX-ATROP 2.5-0.025 MG 1 EACH TAB PO PRN (14:30)
[2021-03-20] MEDS ORDERED: PROCHLORPERAZINE 10 MG TAB PO PRN (14:30)
[2021-03-20] MEDS ORDERED: NITROGLYCERIN SL TABS 0.4 MG TAB SUBLINGUAL PRN (14:30)
[2021-03-20] MEDS ORDERED: ONDANSETRON 4 MG TAB PO PRN (14:30)
--- NOTE | 2021-03-20 14:40 | P.NPCON ---
History of Present Illness - Reason for Consult end stage renal disease - History of Present Illness Patient is a 76-year-old female with end-stage renal disease on hemodialysis on a Saturday vent is a Saturday schedule. She was admitted to the hospital with complaints of of increased redness and soreness in her left toe and forefoot. Patient has a known dry gangrene on her left second toe and has been following at the wound clinic. There was no history of fevers or chills nausea or vomiting. No complaints of chest pains or shortness of breath. Potassium was 6.3. Patient has a right arm AV fistula which was recently started to be used. She also has a left IJ catheter. Review of Systems As per HPI other systems negative Past Medical History Past Medical History: Coronary Artery Disease (CAD), Cancer, CVA/TIA, Diabetes Mellitus, Hyperlipidemia, Hypertension, Memory Impairment, Osteoarthritis (OA), Renal Disease, Sleep Apnea/CPAP/BIPAP, Thyroid Disorder Additional Past Medical History / Comment(s): IDDM type II, ESRD with hemodialysis M/W/FR, CVA 2020 with increased memory/balance problems, FALLS, L b reast cancer with lumpectomy/radiation, chronic diarrhea, incontinence at times, ANSLEY without device, chronic pain/generalized, hypothyroid. Last Myocardial Infarction Date:: unknown History of Any Multi-Drug Resistant Organisms: MRSA Date of last positivie culture/infection: 2017 MDRO Source:: face Past Surgical History: Breast Surgery, Cholecystectomy, Coronary Bypass/CABG, Heart Catheterization, Hysterectomy, Joint Replacement Additional Past Surgical History / Comment(s): L arm fistula was not working properly and had veins relocated so hopefully will be able to use L arm fistula, current R chest dialysis access, 3 vessel CABG 4-5 years ago, L breast bx/lumpectomy, bilateral total knee arthroplasties, bilateral cataract removals. Past Anesthesia/Blood Transfusion Reactions: No Reported Reaction Smoking Status: Never smoker - Past Family History Daughter(s) Family Medical History: Cancer Additional Family Medical History / Comment(s): breast Father Family Medical History: Myocardial Infarction ([place]) Additional Family Medical History / Comment(s): Father of a [place] in his 60s. Mother Additional Family Medical History / Comment(s): Mother had heart disease Medications and Allergies Home Medications Medication Instructions Recorded Confirmed Type Acetaminophen [Tylenol] 650 mg PO Q4H PRN 01/11/21 03/20/21 History Aspirin [Adult Low Dose Aspirin EC] 81 mg PO DAILY 01/11/21 03/20/21 History Clopidogrel [Plavix] 75 mg PO DAILY 01/11/21 03/20/21 History Diphenoxylate HCl/Atropine 1 tab PO BID PRN 01/11/21 03/20/21 History [Lomotil 2.5-0.025 mg Tablet] Docusate [Colace] 100 mg PO DAILY PRN 01/11/21 03/20/21 History Insulin Aspart [NovoLOG Flexpen] 10 units SQ ACHS PRN 01/11/21 03/20/21 History Insulin Degludec [Tresiba] 16 units SQ QAM 01/11/21 03/20/21 History Levothyroxine Sodium [Synthroid] 75 mcg PO DAILY 01/11/21 03/20/21 History Metoprolol Tartrate [Lopressor] 50 mg PO BID 01/11/21 03/20/21 History Nitroglycerin 0.4 mg SUBLINGUAL Q5M PRN 01/11/21 03/20/21 History Ondansetron [Zofran] 4 mg PO DAILY PRN 01/11/21 03/20/21 History Pantoprazole [Protonix] 40 mg PO DAILY 01/11/21 03/20/21 History Prochlorperazine [Compazine] 10 mg PO Q8H PRN 01/11/21 03/20/21 History Rivastigmine 4.6MG/24Hr Patch 1 patch TRANSDERM Q24HR 01/11/21 03/20/21 History [Exelon 4.6MG/24Hr Patch] Rosuvastatin [Crestor] 10 mg PO HS 01/11/21 03/20/21 History Triphrocaps 1 tab PO HS 01/11/21 03/20/21 History amLODIPine [Norvasc] 2.5 mg PO BID 01/11/21 03/20/21 History Allergies Allergy/AdvReac Type Severity Reaction Status Date / Time Iodinated Contrast Media Allergy Severe Anaphylaxis Verified 03/19/21 18:43 latex Allergy Itching Verified 03/19/21 18:43 Physical Exam Vitals: Vital Signs Temp Pulse Resp BP Pulse Ox 03/20/21 06:51 97.8 F 64 18 118/49 96 03/20/21 02:00 71 18 117/52 98 03/19/21 23:00 68 18 118/66 98 03/19/21 21:00 97.9 F 03/19/21 19:44 66 18 129/62 95 03/19/21 18:36 97.7 F 73 20 152/68 95 Intake and Output 03/19/21 03/20/21 03/20/21 22:59 06:59 14:59 Other: Weight 83.915 kg 83.915 kg Patient is awake comfortable not in any acute distress. Alert oriented 3. Examination of the heart S1 and S2 Examination lungs bilateral breath sounds are heard Abdomen is soft nontender Examination lower extremity shows no significant edema Necrotic left second toe is noted with some erythema extending into the forefoot [employer] exam grossly intact Results - Lab Results Most recent lab results Calcium 8.5 mg/dL (8.4-10.2) 03/19/21 21:16 03/19/21 21:16 03/20/21 07:11 Assessment and Plan Assessment: 1. End-stage renal disease maintained on hemodialysis on a Saturday vent is a Saturday schedule at the [facility] unit patient has a left IJ catheter she also has an AV fistula in her right arm which has recently been used the IC some bruising on it. 2. Hyperkalemia associated with end-stage renal disease, expect improvement post dialysis 3. Peripheral vascular disease with left second toe gangrene with some cellulitis noted. 4. CK D mineral bone disorder 5. Anemia of chronic disease Plan: Hemodialysis today Maintain patient on Aranesp Empiric antibiotics.
--- NOTE | 2021-03-20 15:04 | P.GSCN ---
<Elvira Walton - Last Filed: 03/20/21 14:50> History of Present Illness Consult date: 03/20/21 Reason for Consult: Chronic Toe wound Requesting physician: Luis Lira History of present illness: This is 76-year-old female who presented to the emergency department with complaints of left toe pain and infection. She has a past medical history of end-stage renal disease, CVA, coronary artery disease, diabetes mellitus, hypertension, hyperlipidemia, peripheral vascular disease, obstructive sleep apnea and history of breast cancer status post radiation. She is known to Dr. Nicolas status post brachiocephalic fistula transposition on 01/12/2021 The patient states she's been noticing more redness from the second toe wound. States she had been following with the wound center. Patient reports her memory has been altered ever since her stroke. She is not sure who she is seen at the wound Center believes she was going once a week. On admission patient had evidence of leukocytosis with a WBC of 12.0. Hemoglobin 9.8. INR 1.0. He de nies any fevers or chills. She's been afebrile. She is denying any pain up her leg. Is not sure she has a history of peripheral arterial disease. Left foot toe x-ray shows no evidence of osteomyelitis. The patient is currently on aspirin and Plavix. Review of Systems 14 point review of systems was completed all pertinent positives and negatives as stated in the HPI. Past Medical History Past Medical History: Coronary Artery Disease (CAD), Cancer, CVA/TIA, Diabetes Mellitus, Hyperlipidemia, Hypertension, Myocardial Infarction ([place]), Osteoarthritis (OA), Renal Disease, Sleep Apnea/CPAP/BIPAP, Thyroid Disorder Additional Past Medical History / Comment(s): stroke Jan 2020-diff walking-uses a walker also effects speech, no cpap used, diarrhea, hemodialysis MOWEFR, hx breast cancer(radiation) Last Myocardial Infarction Date:: unknown History of Any Multi-Drug Resistant Organisms: MRSA Year Discovered:: 2018 MDRO Source:: face Past Surgical History: Breast Surgery, Cholecystectomy, Coronary Bypass/CABG, Hysterectomy, Joint Replacement Additional Past Surgical History / Comment(s): left breast lumpectomy, mary jane knee replacement, mary jane cataracts, triple CABG 45-5 yrs ago, port in chest for dialysis Past Anesthesia/Blood Transfusion Reactions: No Reported Reaction Past Psychological History: No Psychological Hx Reported Smoking Status: Never smoker Past Alcohol Use History: None Reported Past Drug Use History: None Reported - Past Family History Daughter(s) Family Medical History: Cancer Additional Family Medical History / Comment(s): breast Father Family Medical History: Myocardial Infarction ([place]) Additional Family Medical History / Comment(s): Father of a [place] in his 60s. Mother Additional Family Medical History / Comment(s): Mother had heart disease Medications and Allergies Home Medications Medication Instructions Recorded Confirmed Type Acetaminophen [Tylenol] 650 mg PO Q4H PRN 01/11/21 03/20/21 History Aspirin [Adult Low Dose Aspirin EC] 81 mg PO DAILY 01/11/21 03/20/21 History Clopidogrel [Plavix] 75 mg PO DAILY 01/11/21 03/20/21 History Diphenoxylate HCl/Atropine 1 tab PO BID PRN 01/11/21 03/20/21 History [Lomotil 2.5-0.025 mg Tablet] Docusate [Colace] 100 mg PO DAILY PRN 01/11/21 03/20/21 History Insulin Aspart [NovoLOG Flexpen] 10 units SQ ACHS PRN 01/11/21 03/20/21 History Insulin Degludec [Tresiba] 16 units SQ QAM 01/11/21 03/20/21 History Levothyroxine Sodium [Synthroid] 75 mcg PO DAILY 01/11/21 03/20/21 History Metoprolol Tartrate [Lopressor] 50 mg PO BID 01/11/21 03/20/21 History Nitroglycerin 0.4 mg SUBLINGUAL Q5M PRN 01/11/21 03/20/21 History Ondansetron [Zofran] 4 mg PO DAILY PRN 01/11/21 03/20/21 History Pantoprazole [Protonix] 40 mg PO DAILY 01/11/21 03/20/21 History Prochlorperazine [Compazine] 10 mg PO Q8H PRN 01/11/21 03/20/21 History Rivastigmine 4.6MG/24Hr Patch 1 patch TRANSDERM Q24HR 01/11/21 03/20/21 History [Exelon 4.6MG/24Hr Patch] Rosuvastatin [Crestor] 10 mg PO HS 01/11/21 03/20/21 History Triphrocaps 1 tab PO HS 01/11/21 03/20/21 History amLODIPine [Norvasc] 2.5 mg PO BID 01/11/21 03/20/21 History Allergies Allergy/AdvReac Type Severity Reaction Status Date / Time Iodinated Contrast Media Allergy Severe Anaphylaxis Verified 03/19/21 18:43 latex Allergy Itching Verified 03/19/21 18:43 Surgical - Exam Vital Signs Temp Pulse Resp BP Pulse Ox 97.7 F 73 20 152/68 95 03/19/21 18:36 03/19/21 18:36 03/19/21 18:36 03/19/21 18:36 03/19/21 18:36 General appearance: The patient is alert, oriented, appears in no acute distress. HET: Head is normocephalic and atraumatic. Pupils are equal and reactive. Neck: Supple without lymphadenopathy. Trachea midline. Heart: S1 S2. Regular rate and rhythm. Lungs: Clear to auscultation bilaterally. Abdomen: Soft, nontender, nondistended. Extremities: Normal skin color and turgor. No cyanosis, rash, ulceration, clubbing, or edema. Left foot second toe debridement site with dry gangrene, necrotic tissue. There is some redness noted on the dorsal aspect of her foot and up to the left becker. Nonpalpable dorsalis pedis pulse. Good capillary refill. Neurological: No focal deficits. Strength and sensation are grossly intact. Results - Labs 03/19/21 21:16 03/20/21 07:11 Abnormal Lab Results - Last 24 Hours (Table) 03/19/21 03/19/21 03/19/21 Range/Units 21:16 21:16 21:16 WBC 12.0 H (3.8-10.6) k/uL RBC 3.08 L (3.80-5.40) m/uL Hgb 9.8 L (11.4-16.0) gm/dL Hct 29.6 L (34.0-46.0) % Neutrophils # 10.1 H (1.3-7.7) k/uL APTT 55.0 H (22.0-30.0) sec Sodium 135 L (137-145) mmol/L Potassium 6.3 H* (3.5-5.1) mmol/L Chloride 95 L (98-107) mmol/L BUN 52 H (7-17) mg/dL Creatinine 7.41 H* (0.52-1.04) mg/dL Glucose 111 H (74-99) mg/dL Total Protein 6.2 L (6.3-8.2) g/dL Albumin 3.3 L (3.5-5.0) g/dL Urine Appearance (Clear) Urine Protein (Negative) Urine Glucose (UA) (Negative) Urine Blood (Negative) Ur Leukocyte Esterase (Negative) Urine RBC (0-5) /hpf Urine WBC (0-5) /hpf Urine WBC Clumps (None) /hpf Ur Squamous Epith Cells (0-4) /hpf Urine Bacteria (None) /hpf Hyaline Casts (0-2) /lpf Urine Mucus (None) /hpf Urine Yeast (Budding) (None) /hpf 03/20/21 03/20/21 03/20/21 Range/Units 02:59 07:11 10:00 WBC (3.8-10.6) k/uL RBC (3.80-5.40) m/uL Hgb (11.4-16.0) gm/dL Hct (34.0-46.0) % Neutrophils # (1.3-7.7) k/uL APTT (22.0-30.0) sec Sodium (137-145) mmol/L Potassium 5.7 H 5.7 H (3.5-5.1) mmol/L Chloride (98-107) mmol/L BUN (7-17) mg/dL Creatinine (0.52-1.04) mg/dL Glucose (74-99) mg/dL Total Protein (6.3-8.2) g/dL Albumin (3.5-5.0) g/dL Urine Appearance Turbid H (Clear) Urine Protein 3+ H (Negative) Urine Glucose (UA) 1+ H (Negative) Urine Blood Small H (Negative) Ur Leukocyte Esterase Large H (Negative) Urine RBC 46 H (0-5) /hpf Urine WBC 129 H (0-5) /hpf Urine WBC Clumps Occasional H (None) /hpf Ur Squamous Epith Cells 118 H (0-4) /hpf Urine Bacteria Moderate H (None) /hpf Hyaline Casts 12 H (0-2) /lpf Urine Mucus Rare H (None) /hpf Urine Yeast (Budding) Few H (None) /hpf Diabetes panel 03/19/21 03/20/21 03/20/21 Range/Units 21:16 02:59 07:11 Sodium 135 L (137-145) mmol/L Potassium 6.3 H* 5.7 H 5.7 H (3.5-5.1) mmol/L Chloride 95 L (98-107) mmol/L Carbon Dioxide 27 (22-30) mmol/L BUN 52 H (7-17) mg/dL Creatinine 7.41 H* (0.52-1.04) mg/dL Glucose 111 H (74-99) mg/dL Calcium 8.5 (8.4-10.2) mg/dL AST 33 (14-36) U/L ALT 16 (4-34) U/L Alkaline Phosphatase 116 (38-126) U/L Total Protein 6.2 L (6.3-8.2) g/dL Albumin 3.3 L (3.5-5.0) g/dL Calcium panel 03/19/21 Range/Units 21:16 Calcium 8.5 (8.4-10.2) mg/dL Albumin 3.3 L (3.5-5.0) g/dL Pituitary panel 03/19/21 03/20/21 03/20/21 Range/Units 21:16 02:59 07:11 Sodium 135 L (137-145) mmol/L Potassium 6.3 H* 5.7 H 5.7 H (3.5-5.1) mmol/L Chloride 95 L (98-107) mmol/L Carbon Dioxide 27 (22-30) mmol/L BUN 52 H (7-17) mg/dL Creatinine 7.41 H* (0.52-1.04) mg/dL Glucose 111 H (74-99) mg/dL Calcium 8.5 (8.4-10.2) mg/dL Adrenal panel 03/19/21 03/20/21 03/20/21 Range/Units 21:16 02:59 07:11 Sodium 135 L (137-145) mmol/L Potassium 6.3 H* 5.7 H 5.7 H (3.5-5.1) mmol/L Chloride 95 L (98-107) mmol/L Carbon Dioxide 27 (22-30) mmol/L BUN 52 H (7-17) mg/dL Creatinine 7.41 H* (0.52-1.04) mg/dL Glucose 111 H (74-99) mg/dL Calcium 8.5 (8.4-10.2) mg/dL Total Bilirubin 0.5 (0.2-1.3) mg/dL AST 33 (14-36) U/L ALT 16 (4-34) U/L Alkaline Phosphatase 116 (38-126) U/L Total Protein 6.2 L (6.3-8.2) g/dL Albumin 3.3 L (3.5-5.0) g/dL Assessment and Plan Assessment: 1. Left chronic diabetic toe ulcer 2. Diabetes mellitus 3. End-stage renal disease on hemodialysis 4. History of coronary artery disease 3. History of CVA, memory impairment Plan: 1. Will obtain arterial duplex of bilateral lower extremities 2. Continue current IV antibiotics 3. Further recommendations forthcoming per vascular surgery based on arterial duplex Thank you for this consultation, we will continue to follow. The impression and plan of care has been dictated as directed. Dr. Alcala I performed a history and examination of this patient, discussed the same with the dictator. I agree with the dictator's note ,documented as a scribe. Any additional findings or plans will be noted. <Sally Nicolas - Last Filed: 03/20/21 16:51> Surgical - Exam Vital Signs Temp Pulse Resp BP Pulse Ox 97.7 F 73 20 152/68 95 03/19/21 18:36 03/19/21 18:36 03/19/21 18:36 03/19/21 18:36 03/19/21 18:36 Results - Labs 03/19/21 21:16 03/20/21 07:11 Abnormal Lab Results - Last 24 Hours (Table) 03/19/21 03/19/21 03/19/21 Range/Units 21:16 21:16 21:16 WBC 12.0 H (3.8-10.6) k/uL RBC 3.08 L (3.80-5.40) m/uL Hgb 9.8 L (11.4-16.0) gm/dL Hct 29.6 L (34.0-46.0) % Neutrophils # 10.1 H (1.3-7.7) k/uL APTT 55.0 H (22.0-30.0) sec Sodium 135 L (137-145) mmol/L Potassium 6.3 H* (3.5-5.1) mmol/L Chloride 95 L (98-107) mmol/L BUN 52 H (7-17) mg/dL Creatinine 7.41 H* (0.52-1.04) mg/dL Glucose 111 H (74-99) mg/dL Total Protein 6.2 L (6.3-8.2) g/dL Albumin 3.3 L (3.5-5.0) g/dL Urine Appearance (Clear) Urine Protein (Negative) Urine Glucose (UA) (Negative) Urine Blood (Negative) Ur Leukocyte Esterase (Negative) Urine RBC (0-5) /hpf Urine WBC (0-5) /hpf Urine WBC Clumps (None) /hpf Ur Squamous Epith Cells (0-4) /hpf Urine Bacteria (None) /hpf Hyaline Casts (0-2) /lpf Urine Mucus (None) /hpf Urine Yeast (Budding) (None) /hpf 03/20/21 03/20/21 03/20/21 Range/Units 02:59 07:11 10:00 WBC (3.8-10.6) k/uL RBC (3.80-5.40) m/uL Hgb (11.4-16.0) gm/dL Hct (34.0-46.0) % Neutrophils # (1.3-7.7) k/uL APTT (22.0-30.0) sec Sodium (137-145) mmol/L Potassium 5.7 H 5.7 H (3.5-5.1) mmol/L Chloride (98-107) mmol/L BUN (7-17) mg/dL Creatinine (0.52-1.04) mg/dL Glucose (74-99) mg/dL Total Protein (6.3-8.2) g/dL Albumin (3.5-5.0) g/dL Urine Appearance Turbid H (Clear) Urine Protein 3+ H (Negative) Urine Glucose (UA) 1+ H (Negative) Urine Blood Small H (Negative) Ur Leukocyte Esterase Large H (Negative) Urine RBC 46 H (0-5) /hpf Urine WBC 129 H (0-5) /hpf Urine WBC Clumps Occasional H (None) /hpf Ur Squamous Epith Cells 118 H (0-4) /hpf Urine Bacteria Moderate H (None) /hpf Hyaline Casts 12 H (0-2) /lpf Urine Mucus Rare H (None) /hpf Urine Yeast (Budding) Few H (None) /hpf Microbiology - Last 24 Hours (Table) 03/19/21 19:50 Blood Culture Gram Stain - Preliminary Blood 03/19/21 19:50 Blood Culture - Final Blood 03/19/21 20:05 Blood Culture Gram Stain - Preliminary Blood 03/19/21 20:05 Blood Culture - Final Blood Diabetes panel 03/19/21 03/20/21 03/20/21 Range/Units 21:16 02:59 07:11 Sodium 135 L (137-145) mmol/L Potassium 6.3 H* 5.7 H 5.7 H (3.5-5.1) mmol/L Chloride 95 L (98-107) mmol/L Carbon Dioxide 27 (22-30) mmol/L BUN 52 H (7-17) mg/dL Creatinine 7.41 H* (0.52-1.04) mg/dL Glucose 111 H (74-99) mg/dL Calcium 8.5 (8.4-10.2) mg/dL AST 33 (14-36) U/L ALT 16 (4-34) U/L Alkaline Phosphatase 116 (38-126) U/L Total Protein 6.2 L (6.3-8.2) g/dL Albumin 3.3 L (3.5-5.0) g/dL Calcium panel 03/19/21 Range/Units 21:16 Calcium 8.5 (8.4-10.2) mg/dL Albumin 3.3 L (3.5-5.0) g/dL Pituitary panel 03/19/21 03/20/21 03/20/21 Range/Units 21:16 02:59 07:11 Sodium 135 L (137-145) mmol/L Potassium 6.3 H* 5.7 H 5.7 H (3.5-5.1) mmol/L Chloride 95 L (98-107) mmol/L Carbon Dioxide 27 (22-30) mmol/L BUN 52 H (7-17) mg/dL Creatinine 7.41 H* (0.52-1.04) mg/dL Glucose 111 H (74-99) mg/dL Calcium 8.5 (8.4-10.2) mg/dL Adrenal panel 03/19/21 03/20/21 03/20/21 Range/Units 21:16 02:59 07:11 Sodium 135 L (137-145) mmol/L Potassium 6.3 H* 5.7 H 5.7 H (3.5-5.1) mmol/L Chloride 95 L (98-107) mmol/L Carbon Dioxide 27 (22-30) mmol/L BUN 52 H (7-17) mg/dL Creatinine 7.41 H* (0.52-1.04) mg/dL Glucose 111 H (74-99) mg/dL Calcium 8.5 (8.4-10.2) mg/dL Total Bilirubin 0.5 (0.2-1.3) mg/dL AST 33 (14-36) U/L ALT 16 (4-34) U/L Alkaline Phosphatase 116 (38-126) U/L Total Protein 6.2 L (6.3-8.2) g/dL Albumin 3.3 L (3.5-5.0) g/dL
[2021-03-20 15:15] LABS: Glucose,Whole Blood 88 mg/dL (75-99)
[2021-03-20] MEDS: INSULIN ASPART (NovoLOG) 100 UNIT/ML VIAL SQ SCH ×3 (15:19→22:24)
[2021-03-20] MEDS: CLOPIDOGREL 75 MG TAB PO SCH (15:19)
[2021-03-20 17:10] LABS: Glucose,Whole Blood 116 mg/dL (75-99)
[2021-03-20] MEDS: amLODIPine 2.5 MG TAB PO SCH (20:26)
[2021-03-20] MEDS: ATORVASTATIN 20 MG TAB PO SCH (20:26)
[2021-03-20] MEDS: HEPARIN SODIUM,PORCINE/PF 5,000 UNIT/0.5 ML SYRINGE SQ SCH (20:26)
[2021-03-20] MEDS: METOPROLOL TARTRATE 50 MG TAB PO SCH (20:26)
[2021-03-20 21:26] LABS: Glucose,Whole Blood 246 mg/dL (75-99)
--- NOTE | 2021-03-20 23:23 | P.CONS ---
History of Present Illness - Reason for Consult Consult date: 03/20/21 toe wound Requesting physician: Chula Perdomo - Chief Complaint non healing wound to left 2nd toe x weeks - History of Present Illness History of present illness : Patient is 76-year female with a past medical history significant for end-stage renal disease on hemodialysis through the chest for possible catheter that has been there for about 2 months the patie nt also have a fistula to the arm which not yet matured patient was brought into the ER last night for evaluation of her wound to the left second toe which apparently has been going on for the last few weeks patient denies having history of any trauma and the patient has been going to the [facility] wound care center however apparently did not have any improvement while she was noticed to have more likely discoloration of the left second toe with some erythema extending to the left leg for the patient was brought into the hospital on arrival to the ER patient was afebrile patient did have white count of 12,000 with a left shift patient did have urine obtained for unknown reason and this patient has dialysis dependent and hardly makes any urine mckenzie PCR was negative patient did have x-ray of the toe no evidence of osteomyelitis patient blood cultures came back positive with gram-positive cocci that has prompted this infectious disease consultation Review of system: CONSTITUTIONAL: Positive for weakness denies high-grade fever. EYES: No complaint. ENT: No complaint. RESPIRATORY: No complaint. CARDIOVASCULAR: No complaint. GENITOURINARY: No complaint. GASTROINTESTINAL: No complaint. MUSCULOSKELETAL: As per history of present illness. INTEGUMENTARY: No complaint. PSYCHOLOGIC: No complaint. ENDOCRINE: No complaint. NEUROLOGIC: No complaint. Past medical history : Reviewed, documented below Past surgical history : Reviewed, documented below Social history: Reviewed, documented below Medications: Reviewed, as documented below EXAMINATION: Vital sigans= Reviewed and documented below GENERAL DESCRIPTION: Elderly female lying in bed, no distress. No tachypnea or accessory muscle of respiration use. HEENT: Shows Pallor , no scleral icterus. Oral mucous membrane is dry. NECK: Trachea central, no thyromegaly. LUNGS: Unlabored breathing. Clear to auscultation anteriorly. No wheeze or crackle. HEART: S1, S2, regular rate and rhythm. ABDOMEN: Soft, no tenderness , guarding or rigidity EXTREMITIES: Left second toe did have necrotic changes with some erythema that is extending to the left lower leg. SKIN: No rash, no masses palpable. NEUROLOGICAL: The patient is awake, alert, oriented x3, mood and affect normal. LABS AND RADIOLOGY: Reviewed results see below Assessment : Patient with gram-positive bacteremia which could be related to the permacatheter infection patient did have a necrotic left second toe however the toe overall looks dry and no purulent drainage though I do have some left lower extremity cellulitis and could be a possible source of this bacteremia though x- rays were negative for any bony changes suggestive of osteomyelitis Plan: 1-blood cultures should be repeated peripherally as well as from dialysis catheter 2-vancomycin pharmacy to dose with a target trough of 15 while watching kidney function and Vanco trough closely. 3-dry protective dressing to the left second toe and marked the area of the redness We will follow on clinical condition and cultures to further adjust medication if needed Thank you for this consultation we will follow the patient along with you Past Medical History Past Medical History: Coronary Artery Disease (CAD), Cancer, CVA/TIA, Diabetes Mellitus, Hyperlipidemia, Hypertension, Myocardial Infarction ([place]), Osteoarthritis ([place]), Renal Disease, Sleep Apnea/CPAP/BIPAP, Thyroid Disorder Additional Past Medical History / Comment(s): stroke Jan 2020-diff walking-uses a walker also effects speech, no cpap used, diarrhea, hemodialysis MOWEFR, hx breast cancer(radiation) Last Myocardial Infarction Date:: unknown History of Any Multi-Drug Resistant Organisms: MRSA Year Discovered:: 2017 MDRO Source:: face Past Surgical History: Breast Surgery, Cholecystectomy, Coronary Bypass/CABG, Hysterectomy, Joint Replacement Additional Past Surgical History / Comment(s): left breast lumpectomy, mary jane knee replacement, mary jane cataracts, triple CABG 45-5 yrs ago, port in chest for dialysis Past Anesthesia/Blood Transfusion Reactions: No Reported Reaction Past Psychological History: No Psychological Hx Reported Smoking Status: Never smoker Past Alcohol Use History: None Reported Past Drug Use History: None Reported - Past Family History Daughter(s) Family Medical History: Cancer Additional Family Medical History / Comment(s): breast Father Family Medical History: Myocardial Infarction ([place]) Additional Family Medical History / Comment(s): Father of a [place] in his 60s. Mother Additional Family Medical History / Comment(s): Mother had heart disease Medications and Allergies Home Medications Medication Instructions Recorded Confirmed Type Acetaminophen [Tylenol] 650 mg PO Q4H PRN 01/11/21 03/20/21 History Aspirin [Adult Low Dose Aspirin EC] 81 mg PO DAILY 01/11/21 03/20/21 History Clopidogrel [Plavix] 75 mg PO DAILY 01/11/21 03/20/21 History Diphenoxylate HCl/Atropine 1 tab PO BID PRN 01/11/21 03/20/21 History [Lomotil 2.5-0.025 mg Tablet] Docusate [Colace] 100 mg PO DAILY PRN 01/11/21 03/20/21 History Insulin Aspart [NovoLOG Flexpen] 10 units SQ ACHS PRN 01/11/21 03/20/21 History Insulin Degludec [Tresiba] 16 units SQ QAM 01/11/21 03/20/21 History Levothyroxine Sodium [Synthroid] 75 mcg PO DAILY 01/11/21 03/20/21 History Metoprolol Tartrate [Lopressor] 50 mg PO BID 01/11/21 03/20/21 History Nitroglycerin 0.4 mg SUBLINGUAL Q5M PRN 01/11/21 03/20/21 History Ondansetron [Zofran] 4 mg PO DAILY PRN 01/11/21 03/20/21 History Pantoprazole [Protonix] 40 mg PO DAILY 01/11/21 03/20/21 History Prochlorperazine [Compazine] 10 mg PO Q8H PRN 01/11/21 03/20/21 History Rivastigmine 4.6MG/24Hr Patch 1 patch TRANSDERM Q24HR 01/11/21 03/20/21 History [Exelon 4.6MG/24Hr Patch] Rosuvastatin [Crestor] 10 mg PO HS 01/11/21 03/20/21 History Triphrocaps 1 tab PO HS 01/11/21 03/20/21 History amLODIPine [Norvasc] 2.5 mg PO BID 01/11/21 03/20/21 History Allergies Allergy/AdvReac Type Severity Reaction Status Date / Time Iodinated Contrast Media Allergy Severe Anaphylaxis Verified 03/19/21 18:43 latex Allergy Itching Verified 03/19/21 18:43 Physical Exam Vitals: Vital Signs Temp Pulse Pulse Resp BP BP Pulse Ox 03/20/21 15:57 97.6 F 84 19 151/75 93 L 03/20/21 15:27 97.8 F 67 18 115/52 97 03/20/21 15:11 120/69 03/20/21 06:51 97.8 F 64 18 118/49 96 03/20/21 02:00 71 18 117/52 98 03/19/21 23:00 68 18 118/66 98 03/19/21 21:00 97.9 F 03/19/21 19:44 66 18 129/62 95 03/19/21 18:36 97.7 F 73 20 152/68 95 Intake and Output 03/20/21 03/20/21 03/20/21 06:59 14:59 22:59 Output Total 1500 Balance -1500 Output: Hemodialysis 1500 Other: Weight 83.915 kg Results CBC & Chem 7: 03/19/21 21:16 03/20/21 20:23 Labs: Abnormal Lab Results - Last 24 Hours (Table) 03/19/21 03/19/21 03/19/21 Range/Units 21:16 21:16 21:16 WBC 12.0 H (3.8-10.6) k/uL RBC 3.08 L (3.80-5.40) m/uL Hgb 9.8 L (11.4-16.0) gm/dL Hct 29.6 L (34.0-46.0) % Neutrophils # 10.1 H (1.3-7.7) k/uL APTT 55.0 H (22.0-30.0) sec Sodium 135 L (137-145) mmol/L Potassium 6.3 H* (3.5-5.1) mmol/L Chloride 95 L (98-107) mmol/L BUN 52 H (7-17) mg/dL Creatinine 7.41 H* (0.52-1.04) mg/dL Glucose 111 H (74-99) mg/dL POC Glucose (mg/dL) (75-99) mg/dL Total Protein 6.2 L (6.3-8.2) g/dL Albumin 3.3 L (3.5-5.0) g/dL Urine Appearance (Clear) Urine Protein (Negative) Urine Glucose (UA) (Negative) Urine Blood (Negative) Ur Leukocyte Esterase (Negative) Urine RBC (0-5) /hpf Urine WBC (0-5) /hpf Urine WBC Clumps (None) /hpf Ur Squamous Epith Cells (0-4) /hpf Urine Bacteria (None) /hpf Hyaline Casts (0-2) /lpf Urine Mucus (None) /hpf Urine Yeast (Budding) (None) /hpf 03/20/21 03/20/21 03/20/21 Range/Units 02:59 07:11 10:00 WBC (3.8-10.6) k/uL RBC (3.80-5.40) m/uL Hgb (11.4-16.0) gm/dL Hct (34.0-46.0) % Neutrophils # (1.3-7.7) k/uL APTT (22.0-30.0) sec Sodium (137-145) mmol/L Potassium 5.7 H 5.7 H (3.5-5.1) mmol/L Chloride (98-107) mmol/L BUN (7-17) mg/dL Creatinine (0.52-1.04) mg/dL Glucose (74-99) mg/dL POC Glucose (mg/dL) (75-99) mg/dL Total Protein (6.3-8.2) g/dL Albumin (3.5-5.0) g/dL Urine Appearance Turbid H (Clear) Urine Protein 3+ H (Negative) Urine Glucose (UA) 1+ H (Negative) Urine Blood Small H (Negative) Ur Leukocyte Esterase Large H (Negative) Urine RBC 46 H (0-5) /hpf Urine WBC 129 H (0-5) /hpf Urine WBC Clumps Occasional H (None) /hpf Ur Squamous Epith Cells 118 H (0-4) /hpf Urine Bacteria Moderate H (None) /hpf Hyaline Casts 12 H (0-2) /lpf Urine Mucus Rare H (None) /hpf Urine Yeast (Budding) Few H (None) /hpf 03/20/21 Range/Units 17:05 WBC (3.8-10.6) k/uL RBC (3.80-5.40) m/uL Hgb (11.4-16.0) gm/dL Hct (34.0-46.0) % Neutrophils # (1.3-7.7) k/uL APTT (22.0-30.0) sec Sodium (137-145) mmol/L Potassium (3.5-5.1) mmol/L Chloride (98-107) mmol/L BUN (7-17) mg/dL Creatinine (0.52-1.04) mg/dL Glucose (74-99) mg/dL POC Glucose (mg/dL) 116 H (75-99) mg/dL Total Protein (6.3-8.2) g/dL Albumin (3.5-5.0) g/dL Urine Appearance (Clear) Urine Protein (Negative) Urine Glucose (UA) (Negative) Urine Blood (Negative) Ur Leukocyte Esterase (Negative) Urine RBC (0-5) /hpf Urine WBC (0-5) /hpf Urine WBC Clumps (None) /hpf Ur Squamous Epith Cells (0-4) /hpf Urine Bacteria (None) /hpf Hyaline Casts (0-2) /lpf Urine Mucus (None) /hpf Urine Yeast (Budding) (None) /hpf Microbiology - Last 24 Hours (Table) 03/19/21 19:50 Blood Culture Gram Stain - Preliminary Blood 03/19/21 19:50 Blood Culture - Final Blood 03/19/21 20:05 Blood Culture Gram Stain - Preliminary Blood 03/19/21 20:05 Blood Culture - Final Blood
[2021-03-21 07:15] LABS: Glucose,Whole Blood 141 mg/dL (75-99)
[2021-03-21] MEDS: LEVOTHYROXINE 75 MCG TAB PO SCH (07:57)
[2021-03-21] MEDS: INSULIN ASPART (NovoLOG) 100 UNIT/ML VIAL SQ SCH ×4 (07:57→22:08)
[2021-03-21 08:56] LABS: African American GFR (CKD) 6 (>60 ml/min/1.73 sqM); C Reactive Protein 8.1 mg/dL (<1.0); Non-African American GFR(CKD) 5 (>60 ml/min/1.73 sqM)
[2021-03-21 08:58] LABS: Vancomycin,Random 26.4 ug/mL
[2021-03-21] MEDS: ASPIRIN 81 MG PO SCH (09:47)
[2021-03-21] MEDS: CLOPIDOGREL 75 MG TAB PO SCH (09:47)
[2021-03-21] MEDS: amLODIPine 2.5 MG TAB PO SCH ×2 (09:47→22:09)
[2021-03-21] MEDS: PANTOPRAZOLE 40 MG TABLET PO SCH (09:47)
[2021-03-21] MEDS: HEPARIN SODIUM,PORCINE/PF 5,000 UNIT/0.5 ML SYRINGE SQ SCH ×2 (09:47→22:08)
[2021-03-21] MEDS: RIVASTIGMINE 4.6MG/24HR PATCH TRANSDERM SCH (09:48)
[2021-03-21] MEDS: METOPROLOL TARTRATE 50 MG TAB PO SCH ×2 (09:48→22:08)
[2021-03-21 10:04] LABS: Anion Gap 12 mmol/L; Blood Urea Nitrogen 40 mg/dL (7-17); Calcium 8.4 mg/dL (8.4-10.2); Carbon Dioxide 28 mmol/L (22-30); Chloride 97 mmol/L (98-107); Glucose 123 mg/dL (74-99); Potassium 5.7 mmol/L (3.5-5.1); Sodium 137 mmol/L (137-145)
--- NOTE | 2021-03-21 11:26 | P.PN ---
Subjective Progress Note Date: 03/21/21 Patient seen and examined lying in bed. No acute changes through the night. Patient has been afebrile. She is on ceftriaxone and vancomycin. Arterial duplex was performed yesterday showing HUMAIRA right 0.80 and left 0.56. Objective - Vital Signs Vital signs: Vital Signs Temp 98.3 F 03/21/21 07:38 Pulse 72 03/21/21 07:38 Resp 18 03/21/21 07:38 BP 147/71 03/21/21 07:38 Pulse Ox 97 03/21/21 07:38 Intake & Output 03/20/21 03/21/21 03/21/21 18:59 06:59 18:59 Intake Total 100 Output Total 1500 0 Balance -1500 100 Weight 83.915 kg 89 kg Intake: Oral 100 Output: Stool 0 Hemodialysis 1500 Other: # Voids 2 # Bowel Movements 0 - Exam General appearance: The patient is alert, oriented, appears in no acute distress. HET: Head is normocephalic and atraumatic. Pupils are equal and reactive. Extremities: Normal skin color and turgor. No cyanosis, rash, ulceration, clubbing, or edema. Left foot second toe debridement site with dry gangrene, necrotic tissue. There is some redness noted on the dorsal aspect of her foot and up to the left becker. Nonpalpable dorsalis pedis pulse. Good capillary refill. Neurological: No focal deficits. Strength and sensation are grossly intact. - Labs CBC & Chem 7: 03/19/21 21:16 03/21/21 06:47 Labs: Abnormal Lab Results - Last 24 Hours (Table) 03/20/21 03/20/21 03/20/21 Range/Units 10:00 17:05 20:23 Potassium 5.4 H (3.5-5.1) mmol/L Chloride (98-107) mmol/L BUN (7-17) mg/dL Creatinine (0.52-1.04) mg/dL Glucose (74-99) mg/dL POC Glucose (mg/dL) 116 H (75-99) mg/dL C-Reactive Protein (<1.0) mg/dL Urine Appearance Turbid H (Clear) Urine Protein 3+ H (Negative) Urine Glucose (UA) 1+ H (Negative) Urine Blood Small H (Negative) Ur Leukocyte Esterase Large H (Negative) Urine RBC 46 H (0-5) /hpf Urine WBC 129 H (0-5) /hpf Urine WBC Clumps Occasional H (None) /hpf Ur Squamous Epith Cells 118 H (0-4) /hpf Urine Bacteria Moderate H (None) /hpf Hyaline Casts 12 H (0-2) /lpf Urine Mucus Rare H (None) /hpf Urine Yeast (Budding) Few H (None) /hpf 03/20/21 03/21/21 03/21/21 Range/Units 21:06 06:47 07:14 Potassium 5.7 H (3.5-5.1) mmol/L Chloride 97 L (98-107) mmol/L BUN 40 H (7-17) mg/dL Creatinine 6.89 H (0.52-1.04) mg/dL Glucose 123 H (74-99) mg/dL POC Glucose (mg/dL) 246 H 141 H (75-99) mg/dL C-Reactive Protein 8.1 H (<1.0) mg/dL Urine Appearance (Clear) Urine Protein (Negative) Urine Glucose (UA) (Negative) Urine Blood (Negative) Ur Leukocyte Esterase (Negative) Urine RBC (0-5) /hpf Urine WBC (0-5) /hpf Urine WBC Clumps (None) /hpf Ur Squamous Epith Cells (0-4) /hpf Urine Bacteria (None) /hpf Hyaline Casts (0-2) /lpf Urine Mucus (None) /hpf Urine Yeast (Budding) (None) /hpf Microbiology - Last 24 Hours (Table) 03/19/21 20:05 Blood Culture Gram Stain - Preliminary Blood Blood Culture - Preliminary Staphylococcus epidermidis 03/20/21 10:00 Urine Culture - Preliminary Urine,Voided 03/19/21 19:50 Blood Culture Gram Stain - Preliminary Blood 03/19/21 19:50 Blood Culture - Final Blood 03/19/21 20:05 Blood Culture - Final Blood Assessment and Plan Assessment: 1. Left chronic nonhealing diabetic toe ulcer 2. Peripheral arterial disease 3. Diabetes mellitus 4. End-stage renal disease on hemodialysis 5. History of coronary artery disease 6. History of CVA, memory impairment Plan: 1. Arterial duplex reviewed 2. Continue current IV antibiotics 3. Patient will be scheduled for lower extremity angiogram tomorrow with Dr. Nicolas 4. Nothing by mouth after midnight 5. Hold Plavix for procedure Thank you for this consultation, we will continue to follow. The impression and plan of care has been dictated as directed. Dr. Alcala I performed a history and examination of this patient, discussed the same with the dictator. I agree with the dictator's note ,documented as a scribe. Any additional findings or plans will be noted.
[2021-03-21 11:49] LABS: Glucose,Whole Blood 121 mg/dL (75-99)
[2021-03-21] MEDS: INSULIN DETEMIR (LEVEMIR) 100 UNIT/ML SYR SQ SCH (12:15)
--- NOTE | 2021-03-21 12:45 | P.CONS ---
History of Present Illness - Reason for Consult Consult date: 03/21/21 wound care - History of Present Illness This is a 76-year-old patient known to the wound care center who is utilizing honey gel to the left dorsal second digit. Last week was noted that there was some dusky appearance to the toe after the removal of the dressing however upon examination the toe was pink in color with a brisk cap refill. Patient was instructed that if any discoloration occurs prior to her appointment in the wound care center to go to the emergency room. At this time the second digit is gangrene with eschar and necrotic tissue. No drainage noted. Review Of Systems: Constitutional: No fever, no chills, no night sweats. No weight change. No weakness, fatigue or lethargy. No daytime sleepiness. Integumentary:reports wounds, no lesions. No rash or pruritus. No unusual bruising. No change in hair or nails. Physical exam: General Appearance: Alert, cooperative, no distress, appears stated age. Skin: See HPI all other Skin color, texture, tugor normal, no rashes or lesions. Neurologic: Alert oriented x3 Assessment: 1. Diabetic foot ulcer 2. Nonhealing ulceration with gangrene 3. Peripheral arterial disease Plan: 1. Patient is planned for left lower extremity angiogram. May cover with dry gauze as needed. Patient returned to the wound care center upon discharge from the hospital. Thank you consultation any questions contact the wound care center DNP note has been reviewed and discussed with Dr. Sims and the impression and plan of care has been directed as dictated. Past Medical History Past Medical History: Coronary Artery Disease (CAD), Cancer, CVA/TIA, Diabetes Mellitus, Hyperlipidemia, Hypertension, Myocardial Infarction (UT), Osteoarthritis (OA), Renal Disease, Sleep Apnea/CPAP/BIPAP, Thyroid Disorder Additional Past Medical History / Comment(s): stroke Jan 2020-diff walking-uses a walker also effects speech, no cpap used, diarrhea, hemodialysis MOWEFR, hx breast cancer(radiation) Last Myocardial Infarction Date:: unknown History of Any Multi-Drug Resistant Organisms: MRSA Year Discovered:: 2017 MDRO Source:: face Past Surgical History: Breast Surgery, Cholecystectomy, Coronary Bypass/CABG, Hysterectomy, Joint Replacement Additional Past Surgical History / Comment(s): left breast lumpectomy, mary jane knee replacement, mary jane cataracts, triple CABG 45-5 yrs ago, port in chest for dialysis Past Anesthesia/Blood Transfusion Reactions: No Reported Reaction Past Psychological History: No Psychological Hx Reported Smoking Status: Never smoker Past Alcohol Use History: None Reported Past Drug Use History: None Reported - Past Family History Daughter(s) Family Medical History: Cancer Additional Family Medical History / Comment(s): breast Father Family Medical History: Myocardial Infarction (UT) Additional Family Medical History / Comment(s): Father of a UT in his 60s. Mother Additional Family Medical History / Comment(s): Mother had heart disease Medications and Allergies Home Medications Medication Instructions Recorded Confirmed Type Acetaminophen [Tylenol] 650 mg PO Q4H PRN 01/11/21 03/20/21 History Aspirin [Adult Low Dose Aspirin EC] 81 mg PO DAILY 01/11/21 03/20/21 History Clopidogrel [Plavix] 75 mg PO DAILY 01/11/21 03/20/21 History Diphenoxylate HCl/Atropine 1 tab PO BID PRN 01/11/21 03/20/21 History [Lomotil 2.5-0.025 mg Tablet] Docusate [Colace] 100 mg PO DAILY PRN 01/11/21 03/20/21 History Insulin Aspart [NovoLOG Flexpen] 10 units SQ ACHS PRN 01/11/21 03/20/21 History Insulin Degludec [Tresiba] 16 units SQ QAM 01/11/21 03/20/21 History Levothyroxine Sodium [Synthroid] 75 mcg PO DAILY 01/11/21 03/20/21 History Metoprolol Tartrate [Lopressor] 50 mg PO BID 01/11/21 03/20/21 History Nitroglycerin 0.4 mg SUBLINGUAL Q5M PRN 01/11/21 03/20/21 History Ondansetron [Zofran] 4 mg PO DAILY PRN 01/11/21 03/20/21 History Pantoprazole [Protonix] 40 mg PO DAILY 01/11/21 03/20/21 History Prochlorperazine [Compazine] 10 mg PO Q8H PRN 01/11/21 03/20/21 History Rivastigmine 4.6MG/24Hr Patch 1 patch TRANSDERM Q24HR 01/11/21 03/20/21 History [Exelon 4.6MG/24Hr Patch] Rosuvastatin [Crestor] 10 mg PO HS 01/11/21 03/20/21 History Triphrocaps 1 tab PO HS 01/11/21 03/20/21 History amLODIPine [Norvasc] 2.5 mg PO BID 01/11/21 03/20/21 History Allergies Allergy/AdvReac Type Severity Reaction Status Date / Time Iodinated Contrast Media Allergy Severe Anaphylaxis Verified 03/19/21 18:43 latex Allergy Itching Verified 03/19/21 18:43 Physical Exam Vitals: Vital Signs Temp Pulse Pulse Pulse Resp BP BP 03/21/21 11:39 72 17 03/21/21 11:29 97.6 F 68 17 146/81 03/21/21 07:38 98.3 F 72 18 147/71 03/21/21 04:35 98.5 F 75 20 144/78 03/20/21 20:00 99.3 F 87 20 127/72 03/20/21 15:57 97.6 F 84 19 151/75 03/20/21 15:27 97.8 F 67 18 115/52 03/20/21 15:11 120/69 Pulse Ox 03/21/21 11:39 03/21/21 11:29 94 L 03/21/21 07:38 97 03/21/21 04:35 03/20/21 20:00 92 L 03/20/21 15:57 93 L 03/20/21 15:27 97 03/20/21 15:11 Intake and Output 03/20/21 03/21/21 03/21/21 22:59 06:59 14:59 Intake Total 100 Output Total 1500 Balance -1500 100 Intake: Oral 100 Output: Stool 0 Hemodialysis 1500 Other: Voiding Method Bedside Commode # Voids 2 # Bowel Movements 0 Weight 89 kg Results CBC & Chem 7: 03/19/21 21:16 03/21/21 06:47 Labs: Abnormal Lab Results - Last 24 Hours (Table) 03/20/21 03/20/21 03/20/21 Range/Units 17:05 20:23 21:06 Potassium 5.4 H (3.5-5.1) mmol/L Chloride (98-107) mmol/L BUN (7-17) mg/dL Creatinine (0.52-1.04) mg/dL Glucose (74-99) mg/dL POC Glucose (mg/dL) 116 H 246 H (75-99) mg/dL C-Reactive Protein (<1.0) mg/dL 03/21/21 03/21/21 03/21/21 Range/Units 06:47 07:14 11:48 Potassium 5.7 H (3.5-5.1) mmol/L Chloride 97 L (98-107) mmol/L BUN 40 H (7-17) mg/dL Creatinine 6.89 H (0.52-1.04) mg/dL Glucose 123 H (74-99) mg/dL POC Glucose (mg/dL) 141 H 121 H (75-99) mg/dL C-Reactive Protein 8.1 H (<1.0) mg/dL Microbiology - Last 24 Hours (Table) 03/19/21 20:05 Blood Culture Gram Stain - Preliminary Blood Blood Culture - Preliminary Staphylococcus epidermidis 03/20/21 10:00 Urine Culture - Preliminary Urine,Voided 03/19/21 19:50 Blood Culture Gram Stain - Preliminary Blood 03/19/21 19:50 Blood Culture - Final Blood 03/19/21 20:05 Blood Culture - Final Blood Assessment and Plan (1) Diabetic foot ulcer Current Visit: Yes Status: Acute Code(s): E11.621 - TYPE 2 DIABETES MELLITUS WITH FOOT ULCER; L97.509 - NON-PRESSURE CHRONIC ULCER OTH PRT UNSP FOOT W UNSP SEVERITY SNOMED Code(s): 032400742 (2) Peripheral arterial disease Current Visit: Yes Status: Acute Code(s): I73.9 - PERIPHERAL VASCULAR DISEASE, UNSPECIFIED SNOMED Code(s): 880416561 (3) Non-pressure chronic ulcer of other part of left foot with necrosis of muscle Current Visit: Yes Status: Acute Code(s): L97.523 - NON-PRS CHRONIC ULCER OTH PRT LEFT FOOT W NECROSIS OF MUSCLE SNOMED Code(s): 713205110
--- NOTE | 2021-03-21 13:44 | P.PN ---
Subjective Progress Note Date: 03/21/21 HISTORY OF PRESENT ILLNESS This is a 76-year-old female patient of Dr. Lira with past medical history of end-stage renal disease, CVA, coronary artery disease,, diabetes mellitus type 2 insulin requiring, hypertension, hyperlipidemia, hypothyroidism, peripheral vascular disease, obstructive sleep apnea without CPAP, history of breast cancer status post radiation. Patient has recently been transitioned to HD and Dr. Nicolas or [place] 01/12/2021. Patient States That She Is Normally Saturday Dialysis and Denies Missing Any Recent Appointments. She Has a Left-Sided Port in Place and Also a Right-Sided Fistula. Patient presented with complaints of wound to the left second toe and redness to the left lower extremity been going on for extended period of time. She is established with the wound healing Center and recently on Bactrim. Patient presented to [facility] emergency center WBC 12.0, hemoglobin 9.8, platelet count 202. INR 1.0. Sodium 135, potassium 6.3 with repeat 5.7, chloride 95, CO2 27, BUN 52 creatinine 7.41. Blood sugar 111. Liver function tests were normal. Urinalysis turbid, leukoesterase large, RBCs 46, wbc's 129, squamous cells 118. Carotid virus PCR not detected. X-ray left toes showed no evidence of osteomyelitis. Patient seen today in the emergency center waiting for a bed on the cardiac stepdown unit. Consults in place with infectious disease and vascular surgery. 03/21: Vision has been seen by Dr. Ireland from infectious disease with plan for vancomycin, pharmacy dosing, dialysis catheter culture and blood culture repeated. Patient's been seen by vascular surgery with plan for angiogram tomorrow with Dr. Nicolas. Wound Center has evaluated patient with plan for dry gauze and follow-up with the wound center at discharge. Patient denies any new complaints. She has been afebrile, heart rate 68, blood pressure 146/81, pulse ox 94% on 2 L nasal cannula. Repeat blood work reveals sodium 137, potassium 5.7, chloride 97, BUN 40 creatinine 6.89. Blood sugars running between 121 and 246 but improving. Vancomycin level XXVI.4. C-reactive protein 8.1. Blood cultures positive for Staphylococcus epidermidis. Discharge plan is to return home most likely and insurance coverage for IV antibiotics is being checked by bilingual case manager. REVIEW OF SYSTEMS Constitutional: No fever, no chills, no night sweats. No weight change. No weakness, fatigue or lethargy. No daytime sleepiness. EENT: No headache. No blurred vision or double vision, no loss of vision. No loss of Hearing, no ringing in the ears, no dizziness. No nasal drainage or congestion. No epistaxis. No sore throat. Lungs: No shortness of breath, cough, no sputum production. No wheezing. Cardiovascular: No chest pain, no lower extremity edema. No palpitations. No paroxysmal nocturnal dyspnea. No orthopnea. No lightheadedness or dizziness. No syncopal episodes. Abdominal: No abdominal pain. No nausea, vomiting. No diarrhea. No constipation. No bloody or tarry stools. No loss of appetite. Genitourinary: No dysuria, increased frequency, urgency. No urinary retention. Musculoskeletal: No myalgias. No muscle weakness, no gait dysfunction, no frequent falls. No back pain. No neck pain. Integumentary: Reported left toe wounds, no lesions. No rash or pruritus. No unusual bruising. No change in hair or nails. Neurologic: No aphasia. No facial droop. No change in mentation. No head injury. No headache. No paralysis. No paresthesia. Psychiatric: No depression. No anxiety. No mood swings. Endocrine: No abnormal blood sugars. No weight change. No excessive sweating or thirst. No cold intolerance. PHYSICAL EXAMINATION Gen: This is a 76-year-old female. Patient is resting in the ER stretcher and appears to be comfortable and in no acute distress. HEENT: Head is atraumatic, normocephalic. Pupils equal, round. Sclerae is anicteric. NECK: Supple. No JVD. No lymphadenopathy. No thyromegaly. LUNGS: Clear to auscultation. No wheezes or rhonchi. No intercostal retractions. HEART: Regular rate and rhythm. No murmur. ABDOMEN: Soft. Bowel sounds are present. No masses. No tenderness. EXTREMITIES: No pedal edema. No calf tenderness. Necrotic tissue to the left second toe. NEUROLOGICAL: Patient is awake, alert and oriented x3. Cranial nerves 2 through 12 are grossly intact. ASSESSMENT AND PLAN 1. Diabetic and peripheral vascular disease ulcer to the left second toe. Consult with vascular surgery, infectious disease appreciated. Continue antibiotics in the form of ceftriaxone and vancomycin, consult to wound healing Center where patient has been established. Blood culture Staphylococcus epider midis. Patient is scheduled for angiogram tomorrow. 2. Diabetes mellitus type 2 insulin requiring. Patient will be resumed on home medications, NovoLog scale before meals and at bedtime, hemoglobin A1c 7.6. 3. End-stage renal disease on hemodialysis Saturday. Consult with nephrology appreciated. 4. Hyperkalemia secondary to acute kidney injury. 5. Coronary artery disease. 6. History of CVA with short-term memory deficit. 7. Hypertension. Continue patient on amlodipine 2.5 mg twice daily, Lopressor 50 mg twice daily. 8. Hyperlipidemia. Continue atorvastatin 20 mg at bedtime. 9. Hypothyroidism. Continue levothyroxine 75 g daily. 10. Peripheral vascular disease. Continue Plavix. 11. History of obstructive sleep apnea not utilizing CPAP. 12. History of breast cancer status post radiation, stable. 13. DVT prophylaxis. Heparin subcu. 14. GI prophylaxis. Protonix. 16. COVID-19 testing negative. Patient has been hospitalized during a [facility] ic. DISCHARGE PLAN TBD. PT and OT consults. Also likely return home. Impression and plan of care have been directed as dictated by the signing physician. Chula Perdomo nurse practitioner acting as scribe for signing physician. Objective - Vital Signs Vital signs: Vital Signs Temp 98.3 F 03/21/21 07:38 Pulse 72 03/21/21 07:38 Resp 18 03/21/21 07:38 BP 147/71 03/21/21 07:38 Pulse Ox 97 03/21/21 07:38 Intake & Output 03/20/21 03/21/21 03/21/21 18:59 06:59 18:59 Intake Total 100 Output Total 1500 0 Balance -1500 100 Weight 83.915 kg 89 kg Intake: Oral 100 Output: Stool 0 Hemodialysis 1500 Other: # Voids 2 # Bowel Movements 0 - Labs CBC & Chem 7: 03/19/21 21:16 03/21/21 06:47 Labs: Abnormal Lab Results - Last 24 Hours (Table) 03/20/21 03/20/21 03/20/21 Range/Units 07:11 10:00 17:05 Potassium 5.7 H (3.5-5.1) mmol/L POC Glucose (mg/dL) 116 H (75-99) mg/dL Urine Appearance Turbid H (Clear) Urine Protein 3+ H (Negative) Urine Glucose (UA) 1+ H (Negative) Urine Blood Small H (Negative) Ur Leukocyte Esterase Large H (Negative) Urine RBC 46 H (0-5) /hpf Urine WBC 129 H (0-5) /hpf Urine WBC Clumps Occasional H (None) /hpf Ur Squamous Epith Cells 118 H (0-4) /hpf Urine Bacteria Moderate H (None) /hpf Hyaline Casts 12 H (0-2) /lpf Urine Mucus Rare H (None) /hpf Urine Yeast (Budding) Few H (None) /hpf 03/20/21 03/20/21 03/21/21 Range/Units 20:23 21:06 07:14 Potassium 5.4 H (3.5-5.1) mmol/L POC Glucose (mg/dL) 246 H 141 H (75-99) mg/dL Urine Appearance (Clear) Urine Protein (Negative) Urine Glucose (UA) (Negative) Urine Blood (Negative) Ur Leukocyte Esterase (Negative) Urine RBC (0-5) /hpf Urine WBC (0-5) /hpf Urine WBC Clumps (None) /hpf Ur Squamous Epith Cells (0-4) /hpf Urine Bacteria (None) /hpf Hyaline Casts (0-2) /lpf Urine Mucus (None) /hpf Urine Yeast (Budding) (None) /hpf Microbiology - Last 24 Hours (Table) 03/19/21 20:05 Blood Culture Gram Stain - Preliminary Blood Blood Culture - Preliminary Staphylococcus epidermidis 03/20/21 10:00 Urine Culture - Preliminary Urine,Voided 03/19/21 19:50 Blood Culture Gram Stain - Preliminary Blood 03/19/21 19:50 Blood Culture - Final Blood 03/19/21 20:05 Blood Culture - Final Blood
--- NOTE | 2021-03-21 16:02 | P.PN ---
Subjective Principal diagnosis: Patient is seen for follow-up for end-stage renal disease. Patient was admitted to the hospital with increased weakness and increased redness and soreness of her left forefoot. Patient has been evaluated by vascular surgery and there are plans for left lower extremity angiogram for nonhealing ulceration with gangrene of the left second toe and patient was dialyzed yesterday. She tolerated her treatment well. She is maintained on a Saturday vent is to Saturday schedule. Objective - Vital Signs Vital signs: Vital Signs Temp 97.6 F 03/21/21 11:29 Pulse 72 03/21/21 11:39 Resp 17 03/21/21 11:39 BP 146/81 03/21/21 11:29 Pulse Ox 94 L 03/21/21 11:29 Intake & Output 03/20/21 03/21/21 03/21/21 18:59 06:59 18:59 Intake Total 100 Output Total 1500 0 Balance -1500 100 Weight 83.915 kg 89 kg Intake: Oral 100 Output: Stool 0 Hemodialysis 1500 Other: Voiding Method Bedside Commode # Voids 2 # Bowel Movements 0 0 - Exam Awake comfortable. Not in any acute distress. Examination of the heart S1 and S2 Examination of lungs decreased breath sounds at the bases examination of the lower extremities shows left foot to be currently wrapped. - Labs CBC & Chem 7: 03/19/21 21:16 03/21/21 06:47 Labs: Abnormal Lab Results - Last 24 Hours (Table) 03/20/21 03/20/21 03/20/21 Range/Units 17:05 20:23 21:06 Potassium 5.4 H (3.5-5.1) mmol/L Chloride (98-107) mmol/L BUN (7-17) mg/dL Creatinine (0.52-1.04) mg/dL Glucose (74-99) mg/dL POC Glucose (mg/dL) 116 H 246 H (75-99) mg/dL C-Reactive Protein (<1.0) mg/dL 03/21/21 03/21/21 03/21/21 Range/Units 06:47 07:14 11:48 Potassium 5.7 H (3.5-5.1) mmol/L Chloride 97 L (98-107) mmol/L BUN 40 H (7-17) mg/dL Creatinine 6.89 H (0.52-1.04) mg/dL Glucose 123 H (74-99) mg/dL POC Glucose (mg/dL) 141 H 121 H (75-99) mg/dL C-Reactive Protein 8.1 H (<1.0) mg/dL Microbiology - Last 24 Hours (Table) 03/19/21 19:50 Blood Culture Gram Stain - Preliminary Blood Blood Culture - Preliminary Coagulase Negative Staph 03/19/21 20:05 Blood Culture Gram Stain - Preliminary Blood Blood Culture - Preliminary Staphylococcus epidermidis 03/20/21 10:00 Urine Culture - Preliminary Urine,Voided 03/19/21 19:50 Blood Culture - Final Blood 03/19/21 20:05 Blood Culture - Final Blood Assessment and Plan Assessment: 1. End-stage renal disease maintained on hemodialysis on a Saturday vent is a Saturday schedule at the [facility] unit patient has a left IJ catheter she also has an AV fistula in her right arm which has recently been used, some bruising noted on it. 2. Hyperkalemia associated with end-stage renal disease, expect improvement post dialysis 3. Peripheral vascular disease with left second toe gangrene with some cellulitis noted. 4. CK D mineral bone disorder 5. Anemia of chronic disease 6. Staphylococcus epidermidis bacteremia, will remove IJ permacath. AV fistula was used with success yesterday. Plan: Hemodialysis in a.m. Maintain patient on Aranesp Empiric antibiotics. DC IJ permacath in view of positive blood cultures. AV fistula was used with mayes ccess yesterday
[2021-03-21 17:11] LABS: Glucose,Whole Blood 154 mg/dL (75-99)
[2021-03-21 20:14] LABS: Glucose,Whole Blood 191 mg/dL (75-99)
[2021-03-21] MEDS: ATORVASTATIN 20 MG TAB PO SCH (22:08)
--- NOTE | 2021-03-21 23:35 | P.PN ---
Subjective Progress Note Date: 03/21/21 Principal diagnosis: Bacteremia, left second toe gangrene Patient is a 76-year-old female with a past medical history significant for end-stage renal disease on hemodialysis through the left chest wall permacath to admit to the hospital with left second toe discoloration concerning for dry gangrene and left leg cellulitis patient also have a positive blood culture which has been finalized as staph epi. On today's evaluation that is 03/21/2021, the patient denies having any fever or rigors, patient mentions overall not feeling that would denies any chest pain shortness of breath or cough no nausea no vomiting no abdominal pain and no worsening pain to the left second toe Objective - Vital Signs Vital signs: Vital Signs Temp 98.3 F 03/21/21 07:38 Pulse 72 03/21/21 07:38 Resp 18 03/21/21 07:38 BP 147/71 03/21/21 07:38 Pulse Ox 97 03/21/21 07:38 Intake & Output 03/20/21 03/21/21 03/21/21 18:59 06:59 18:59 Intake Total 100 Output Total 1500 0 Balance -1500 100 Weight 83.915 kg 89 kg Intake: Oral 100 Output: Stool 0 Hemodialysis 1500 Other: # Voids 2 # Bowel Movements 0 - Exam GENERAL DESCRIPTION: An elderly female lying in bed in no distress RESPIRATORY SYSTEM: Unlabored breathing , decreased breath sounds at bases HEART: S1 S2 regular rate and rhythm , ABDOMEN: Soft , no tenderness EXTREMITIES: Left second toe with necrotic changes to have some erythema to the left foot and leg no worsening - Labs CBC & Chem 7: 03/19/21 21:16 03/21/21 06:47 Labs: Abnormal Lab Results - Last 24 Hours (Table) 03/20/21 03/20/21 03/20/21 Range/Units 17:05 20:23 21:06 Potassium 5.4 H (3.5-5.1) mmol/L Chloride (98-107) mmol/L BUN (7-17) mg/dL Creatinine (0.52-1.04) mg/dL Glucose (74-99) mg/dL POC Glucose (mg/dL) 116 H 246 H (75-99) mg/dL C-Reactive Protein (<1.0) mg/dL 03/21/21 03/21/21 Range/Units 06:47 07:14 Potassium 5.7 H (3.5-5.1) mmol/L Chloride 97 L (98-107) mmol/L BUN 40 H (7-17) mg/dL Creatinine 6.89 H (0.52-1.04) mg/dL Glucose 123 H (74-99) mg/dL POC Glucose (mg/dL) 141 H (75-99) mg/dL C-Reactive Protein 8.1 H (<1.0) mg/dL Microbiology - Last 24 Hours (Table) 03/19/21 20:05 Blood Culture Gram Stain - Preliminary Blood Blood Culture - Preliminary Staphylococcus epidermidis 03/20/21 10:00 Urine Culture - Preliminary Urine,Voided 03/19/21 19:50 Blood Culture Gram Stain - Preliminary Blood 03/19/21 19:50 Blood Culture - Final Blood 03/19/21 20:05 Blood Culture - Final Blood Assessment and Plan (1) Cellulitis of left lower leg Current Visit: Yes Status: Acute Code(s): L03.116 - CELLULITIS OF LEFT LOWER LIMB SNOMED Code(s): 260491408 (2) Ulcer of toe of left foot Current Visit: Yes Status: Acute Code(s): L97.529 - NON-PRESSURE CHRONIC ULCER OTH PRT LEFT FOOT W UNSP SEVERITY SNOMED Code(s): 576137557 Plan: 1patient with gram-positive bacteremia high clinical suspicious is for possible dialysis catheter infection, repeat blood culture has been requested those will be followed patient is covered with vancomycin to continue while monitoring clinical course closely. 2left second toe gangrene and left dorsum cellulitis covered with Rocephin and vancomycin Time with Patient: Less than 30
[2021-03-22 06:57] LABS: Glucose,Whole Blood 135 mg/dL (75-99)
[2021-03-22] MEDS: HEPARIN SODIUM,PORCINE/PF 5,000 UNIT/0.5 ML SYRINGE SQ SCH ×2 (07:36→20:56)
[2021-03-22] MEDS: METOPROLOL TARTRATE 50 MG TAB PO SCH ×2 (07:37→20:56)
[2021-03-22] MEDS: ASPIRIN 81 MG PO SCH (07:37)
[2021-03-22] MEDS: RIVASTIGMINE 4.6MG/24HR PATCH TRANSDERM SCH (07:37)
[2021-03-22] MEDS: amLODIPine 2.5 MG TAB PO SCH ×2 (07:37→20:56)
[2021-03-22] MEDS: CLOPIDOGREL 75 MG TAB PO SCH (07:37)
[2021-03-22] MEDS: PANTOPRAZOLE 40 MG TABLET PO SCH (07:39)
[2021-03-22] MEDS: INSULIN ASPART (NovoLOG) 100 UNIT/ML VIAL SQ SCH ×4 (08:31→20:56)
--- NOTE | 2021-03-22 09:01 | P.ARTDOP ---
Arterial Doppler LOWER EXTREMITY ARTERIAL DOPPLER: DATE OF SERVICE: 03/20/2021 Reason for study: Diabetic ulcer left second toe. Doppler waveforms: Multiphasic throughout on the right and to the popliteal on the left. Atypical below the popliteal on the left. Pulse volume recording: []. Pressure gradients: Bilaterally at the ankle level. Cannot occlude either calf.. Ankle-brachial indices: 0.8 on the right and 0.56 on the left.. Toe brachial indices: 0.35 on the right, Measure on the left Impression: Mild right fem-pop disease. At least moderate left fem-pop disease. Disease appears to be predominantly distal. Clinical correlation her vascular specialty assessment suggested.
[2021-03-22] MEDS: LEVOTHYROXINE 75 MCG TAB PO SCH (10:14)
[2021-03-22] MEDS: INSULIN DETEMIR (LEVEMIR) 100 UNIT/ML SYR SQ SCH (10:33)
--- NOTE | 2021-03-22 10:54 | P.PN ---
Subjective Progress Note Date: 03/22/21 HISTORY OF PRESENT ILLNESS This is a 76-year-old female patient of Dr. Lira with past medical history of end-stage renal disease, CVA, coronary artery disease,, diabetes mellitus type 2 insulin requiring, hypertension, hyperlipidemia, hypothyroidism, peripheral vascular disease, obstructive sleep apnea without CPAP, history of breast cancer status post radiation. Patient has recently been transitioned to HD and Dr. Nicolas or [place] 01/12/2021. Patient States That She Is Normally Saturday Dialysis and Denies Missing Any Recent Appointments. She Has a Left-Sided Port in Place and Also a Right-Sided Fistula. Patient presented with complaints of wound to the left second toe and redness to the left lower extremity been going on for extended period of time. She is established with the wound healing Center and recently on Bactrim. Patient presented to [facility] emergency center WBC 12.0, hemoglobin 9.8, platelet count 202. INR 1.0. Sodium 135, potassium 6.3 with repeat 5.7, chloride 95, CO2 27, BUN 52 creatinine 7.41. Blood sugar 111. Liver function tests were normal. Urinalysis turbid, leukoesterase large, RBCs 46, wbc's 129, squamous cells 118. Carotid virus PCR not detected. X-ray left toes showed no evidence of osteomyelitis. Patient seen today in the emergency center waiting for a bed on the cardiac stepdown unit. Consults in place with infectious disease and vascular surgery. 03/21: Vision has been seen by Dr. Ireland from infectious disease with plan for vancomycin, pharmacy dosing, dialysis catheter culture and blood culture repeated. Patient's been seen by vascular surgery with plan for angiogram tomorrow with Dr. Nicolas. Wound Center has evaluated patient with plan for dry gauze and follow-up with the wound center at discharge. Patient denies any new complaints. She has been afebrile, heart rate 68, blood pressure 146/81, pulse ox 94% on 2 L nasal cannula. Repeat blood work reveals sodium 137, potassium 5.7, chloride 97, BUN 40 creatinine 6.89. Blood sugars running between 121 and 246 but improving. Vancomycin level XXVI.4. C-reactive protein 8.1. Blood cultures positive for Staphylococcus epidermidis. Discharge plan is to return home most likely and insurance coverage for IV antibiotics is being checked by trimming caser. 2/9: Patient denies any new concerns. Her blood sugars are running between 135 and 191. She has been continued on dialysis per nephrology. Patient has been afebrile, heart rate 72, blood pressure 143/70, pulse ox 87% on room air but all other readings are in the 90s. Angiogram today with Dr. Nicolas. Lower extremity arterial Doppler revealed mild right fem-pop disease. At least moderate left fem-pop disease. Disease appears to be predominantly distal. Discharge plan is most likely home with homecare. hotel assistant general manager is following closely. REVIEW OF SYSTEMS Constitutional: No fever, no chills, no night sweats. No weight change. No weakness, fatigue or lethargy. No daytime sleepiness. EENT: No headache. No blurred vision or double vision, no loss of vision. No loss of Hearing, no ringing in the ears, no dizziness. No nasal drainage or congestion. No epistaxis. No sore throat. Lungs: No shortness of breath, cough, no sputum production. No wheezing. Cardiovascular: No chest pain, no lower extremity edema. No palpitations. No paroxysmal nocturnal dyspnea. No orthopnea. No lightheadedness or dizziness. No syncopal episodes. Abdominal: No abdominal pain. No nausea, vomiting. No diarrhea. No constipation. No bloody or tarry stools. No loss of appetite. Genitourinary: No dysuria, increased frequency, urgency. No urinary retention. Musculoskeletal: No myalgias. No muscle weakness, no gait dysfunction, no frequent falls. No back pain. No neck pain. Integumentary: Reported left toe wounds, no lesions. No rash or pruritus. No unusual bruising. No change in hair or nails. Neurologic: No aphasia. No facial droop. No change in mentation. No head injury. No headache. No paralysis. No paresthesia. Psychiatric: No depression. No anxiety. No mood swings. Endocrine: No abnormal blood sugars. No weight change. No excessive sweating or thirst. No cold intolerance. PHYSICAL EXAMINATION Gen: This is a 76-year-old female. Patient is resting recliner and appears to be comfortable and in no acute distress. HEENT: Head is atraumatic, normocephalic. Pupils equal, round. Sclerae is anicteric. NECK: Supple. No JVD. No lymphadenopathy. No thyromegaly. LUNGS: Clear to auscultation. No wheezes or rhonchi. No intercostal retractions. HEART: Regular rate and rhythm. No murmur. ABDOMEN: Soft. Bowel sounds are present. No masses. No tenderness. EXTREMITIES: No pedal edema. No calf tenderness. Necrotic tissue to the left second toe. NEUROLOGICAL: Patient is awake, alert and oriented x3. Cranial nerves 2 through 12 are grossly intact. ASSESSMENT AND PLAN 1. Diabetic and peripheral vascular disease ulcer to the left second toe. Consult with vascular surgery, infectious disease appreciated. Continue antibiotics in the form of ceftriaxone and vancomycin, consult to wound healing Center where patient has been established. Blood culture Staphylococcus epidermidis. Patient is scheduled for angiogram today with Dr. Nicolas. 2. Diabetes mellitus type 2 insulin requiring. Patient will be resumed on home medications, NovoLog scale before meals and at bedtime, hemoglobin A1c 7.6. 3. End-stage renal disease on hemodialysis Saturday. Consult with nephrology appreciated. 4. Hyperkalemia secondary to acute kidney injury. 5. Coronary artery disease. 6. History of CVA with short-term memory deficit. 7. Hypertension. Continue patient on amlodipine 2.5 mg twice daily, Lopressor 50 mg twice daily. 8. Hyperlipidemia. Continue atorvastatin 20 mg at bedtime. 9. Hypothyroidism. Continue levothyroxine 75 g daily. 10. Peripheral vascular disease. Continue Plavix. 11. History of obstructive sleep apnea not utilizing CPAP. 12. History of breast cancer status post radiation, stable. 13. DVT prophylaxis. Heparin subcu. 14. GI prophylaxis. Protonix. 16. COVID-19 testing negative. Patient has been hospitalized during a pandemic. DISCHARGE PLAN TBD. PT and OT consults. Also likely return home. Impression and plan of care have been directed as dictated by the signing physician. Chula Perdomo nurse practitioner acting as scribe for signing physici an. Objective - Vital Signs Vital signs: Vital Signs Temp 98.6 F 03/22/21 07:48 Pulse 72 03/22/21 07:48 Resp 17 03/22/21 07:48 BP 143/70 03/22/21 07:48 Pulse Ox 87 L 03/22/21 07:48 Intake & Output 03/21/21 03/22/21 03/22/21 18:59 06:59 18:59 Intake Total 100 590 Output Total 0 Balance 100 590 Intake: Intake, IV Titration 100 Amount cefTRIAXone 1 gm In 100 Sodium Chloride 0.9% 50 ml @ 100 mls/hr IVPB Q24H [facility] Rx#:[id number] Oral 590 Output: Stool 0 Other: Voiding Method Bedside Commode Bedside Commode # Voids 2 3 # Bowel Movements 1 - Labs CBC & Chem 7: 03/19/21 21:16 03/21/21 06:47 Labs: Abnormal Lab Results - Last 24 Hours (Table) 03/21/21 03/21/21 03/21/21 Range/Units 06:47 06:47 11:48 ESR 107 H (0-30) mm/Hr Potassium 5.7 H (3.5-5.1) mmol/L Chloride 97 L (98-107) mmol/L BUN 40 H (7-17) mg/dL Creatinine 6.89 H (0.52-1.04) mg/dL Glucose 123 H (74-99) mg/dL POC Glucose (mg/dL) 121 H (75-99) mg/dL C-Reactive Protein 8.1 H (<1.0) mg/dL 03/21/21 03/21/21 03/22/21 Range/Units 17:10 20:13 06:55 ESR (0-30) mm/Hr Potassium (3.5-5.1) mmol/L Chloride (98-107) mmol/L BUN (7-17) mg/dL Creatinine (0.52-1.04) mg/dL Glucose (74-99) mg/dL POC Glucose (mg/dL) 154 H 191 H 135 H (75-99) mg/dL C-Reactive Protein (<1.0) mg/dL Microbiology - Last 24 Hours (Table) 03/20/21 10:00 Urine Culture - Final Urine,Voided 03/19/21 19:50 Blood Culture Gram Stain - Preliminary Blood Blood Culture - Preliminary Coagulase Negative Staph
[2021-03-22 11:34] LABS: Glucose,Whole Blood 110 mg/dL (75-99)
[2021-03-22] MEDS ORDERED: methylPREDNISolone SOD SUCCI 125 MG/2 ML VIAL IV ONE (14:26)
[2021-03-22] MEDS ORDERED: diphenhydrAMINE 50 MG/ML 1 ML VIAL IVP ONE (14:26)
[2021-03-22] MEDS ORDERED: LIDOCAINE 1% INJ 10MG/ML (20 ML MDV) SQ ONE (14:30)
[2021-03-22] MEDS ORDERED: MIDAZOLAM 2 MG/2 ML VIAL IV ONE (14:30)
[2021-03-22] MEDS ORDERED: SODIUM CHLORIDE 0.9% 500 ML 500 ML IV ONE (14:39)
[2021-03-22] MEDS ORDERED: IOPAMIDOL-250 100ML BTL INTRAARTER ONE (14:47)
--- NOTE | 2021-03-22 15:26 | P.OP ---
Date of Procedure: 03/22/21 Description of Procedure: Preoperative diagnosis: Teri 5 peripheral arterial disease, left second toe wound, abnormal ABIs, diabetes, end-stage renal disease Postoperative diagnosis: Same Procedure: [#1 ultrasound-guided right common femoral artery access #2 aortogram with runoffs #3 moderate conscious sedation time 17 minutes] Surgeon: Sally Nicolas D.O. EBL: [Less than 10 mL] IV fluids: [Minimal] Urine output: [Not measured] Drains: [None] Complications: [None immediately apparent, small skin tear at the access site from holding pressure] Condition: [Stable] Operative indication and findings: [Patient is a 76-year-old female on dialysis for end-stage renal disease who presented with the second toe wound. She was found to have abnormal ABIs with noncompressibility and infrapopliteal disease as well as superficial femoral artery disease. Risks and benefits of going forward with the procedure were discussed with the patient is seemingly understood and was willing to proceed. She was premedicated for her iodine ALLERGY] Procedure in detail: [Patient was taken to the special suite and placed in supine position. The bilateral groins are prepped and draped in usual sterile fashion. She had a very large pannus and a pannus retractor was utilized. Ultrasound was utilized in the right common femoral artery was identified. The skin overlying was anesthetized 1% lidocaine plain. Using a micropuncture needle the artery was accessed. Seldinger technique was used to place a 5- Yoruba sheath catheters and wires were then placed into the aorta. An aortogram was performed, the catheter was brought down the level of bifurcation and bilateral lower extremity stations were performed. The catheters and wires were then removed. The sheath was removed and pressure was held until hemostasis was adequate. Angiographic findings the visual portions of the suprarenal aorta is normal without significant disease. The right renal artery appears to have a proximal occlusion with reconstitution. There is disease through the left renal artery. The distal abdominal aorta has significant atherosclerotic disease. On the right the common, external and internal iliac arteries appear patent without significant disease. On the left the common, external and internal iliac arteries appear patent without significant disease. On the right, the common femoral and profundus appear patent without significant disease. There is diffuse moderate disease throughout the remainder of the superficial femoral artery. The popliteal artery appears patent through visualized portions. There is hardware causing nonvisualized segments of the popliteal artery. The below-knee popliteal artery is patent without significant disease. The anterior tibial artery appears patent at its takeoff but becomes diminutive in occludes shortly thereafter. The tibial peroneal trunk has moderate disease. The posterior tibial artery is occluded at its takeoff. The peroneal artery is patent to the ankle. The posterior tibial artery reconstitutes minimally at the level of the ankle. This is via the peroneal artery. On the left common femoral and profunda Wilberto are patent without significant disease. The proximal portion of the superficial femoral artery appears patent. There is diffuse disease through the superficial femoral artery with areas of near occlusion and high-grade stenosis at the mid superficial femoral artery as well as the abductor canal. Again the popliteal artery is patent is visualized with the hardware securing some view. The below-knee popliteal artery is paten. Each end of the anterior tibial artery is diminutive with modest disease. The tibial peroneal trunk is patent. The posterior tibial is occluded at its takeoff and smelly reconstitutes via the peroneal artery at the ankle. There is no visualization of the anterior tibial or dorsalis pedis level.]
[2021-03-22 16:53] LABS: Glucose,Whole Blood 114 mg/dL (75-99)
[2021-03-22] MEDS ORDERED: VANCOMYCIN 1,500 MG in SODIUM CHLORIDE 0.9% 250 ML IVPB ONE (20:00)
[2021-03-22 20:01] LABS: Glucose,Whole Blood 241 mg/dL (75-99)
[2021-03-22] MEDS: ATORVASTATIN 20 MG TAB PO SCH (20:56)
--- NOTE | 2021-03-22 23:23 | P.PN ---
Subjective Progress Note Date: 03/22/21 Principal diagnosis: Bacteremia, left second toe gangrene Patient is a 76-year-old female with a past medical history significant for end-stage renal disease on hemodialysis through the left chest wall permacath to admit to the hospital with left second toe discoloration concerning for dry gangrene and left leg cellulitis patient also have a positive blood culture which has been finalized as staph epi. The patient is scheduled for angiogram today On today's evaluation that is 03/22/2021, the patient remains to be afebrile, patient denies any chest pain shortness of breath or cough no nausea no vomiting no abdominal pain and no worsening pain to the left second toe Objective - Vital Signs Vital signs: Vital Signs Temp 98.6 F 03/22/21 07:48 Pulse 73 03/22/21 10:15 Resp 18 03/22/21 10:15 BP 143/70 03/22/21 07:48 Pulse Ox 87 L 03/22/21 07:48 Intake & Output 03/21/21 03/22/21 03/22/21 18:59 06:59 18:59 Intake Total 100 590 Output Total 0 0 Balance 100 590 0 Intake: Intake, IV Titration 100 Amount cefTRIAXone 1 gm In 100 Sodium Chloride 0.9% 50 ml @ 100 mls/hr IVPB Q24H ON LICENSE OF [facility] Rx#:[id number] Oral 590 Output: Stool 0 0 Other: Voiding Method Bedside Commode Bedside Commode Bedside Commode # Voids 2 3 # Bowel Movements 1 - Exam GENERAL DESCRIPTION: An elderly female lying in bed in no distress RESPIRATORY SYSTEM: Unlabored breathing , decreased breath sounds at bases HEART: S1 S2 regular rate and rhythm , ABDOMEN: Soft , no tenderness EXTREMITIES: Left second toe with necrotic changes to have some erythema to the left foot and leg no worsening - Labs CBC & Chem 7: 03/19/21 21:16 03/21/21 06:47 Labs: Abnormal Lab Results - Last 24 Hours (Table) 03/21/21 03/21/21 03/21/21 Range/Units 06:47 17:10 20:13 ESR 107 H (0-30) mm/Hr POC Glucose (mg/dL) 154 H 191 H (75-99) mg/dL 03/22/21 03/22/21 Range/Units 06:55 11:33 ESR (0-30) mm/Hr POC Glucose (mg/dL) 135 H 110 H (75-99) mg/dL Microbiology - Last 24 Hours (Table) 03/21/21 06:47 Blood Culture - Preliminary Blood No Growth after 24 hours 03/19/21 20:05 Blood Culture Gram Stain - Final Blood Blood Culture - Final Staphylococcus epidermidis 03/19/21 19:50 Blood Culture Gram Stain - Final Blood Blood Culture - Final Staphylococcus epidermidis 03/20/21 10:00 Urine Culture - Final Urine,Voided Assessment and Plan (1) Cellulitis of left lower leg Current Visit: Yes Status: Acute Code(s): L03.116 - CELLULITIS OF LEFT LOWER LIMB SNOMED Code(s): 599904922 (2) Ulcer of toe of left foot Current Visit: Yes Status: Acute Code(s): L97.529 - NON-PRESSURE CHRONIC ULCER OTH PRT LEFT FOOT W UNSP SEVERITY SNOMED Code(s): 874599000 Plan: 1patient with gram-positive bacteremia high clinical suspicious is for possible dialysis catheter infection, repeat blood culture has been requested and has been negative so far, patient to continue with vancomycin while monitoring clinical course closely. 2left second toe gangrene and left dorsum cellulitis covered with Rocephin and vancomycin, scheduled for angiogram today Time with Patient: Less than 30
[2021-03-23 04:20] VITALS: TEMP 97.5
[2021-03-23 06:05] LABS: Glucose,Whole Blood 231 mg/dL (75-99)
[2021-03-23] MEDS: LEVOTHYROXINE 75 MCG TAB PO SCH (06:31)
[2021-03-23] MEDS: PANTOPRAZOLE 40 MG TABLET PO SCH (06:32)
[2021-03-23] MEDS: INSULIN ASPART (NovoLOG) 100 UNIT/ML VIAL SQ SCH ×5 (06:32→18:11)
[2021-03-23 07:58] LABS: HCT 31.6 % (34.0-46.0); HGB 10.1 gm/dL (11.4-16.0); Hypochromasia Slight; MCH 31.3 pg (25.0-35.0); MCV 97.8 fL (80.0-100.0); Mean Platelet Volume 7.3; Platelet Count 213 k/uL (150-450); RBC 3.23 m/uL (3.80-5.40); WBC 9.7 k/uL (3.8-10.6)
[2021-03-23 08:18] LABS: Calcium 8.7 mg/dL (8.4-10.2); Potassium 5.1 mmol/L (3.5-5.1)
[2021-03-23] MEDS: METOPROLOL TARTRATE 50 MG TAB PO SCH (08:24)
[2021-03-23] MEDS: ASPIRIN 81 MG PO SCH (08:25)
[2021-03-23] MEDS: CLOPIDOGREL 75 MG TAB PO SCH (08:25)
[2021-03-23] MEDS: amLODIPine 2.5 MG TAB PO SCH (08:25)
[2021-03-23] MEDS: RIVASTIGMINE 4.6MG/24HR PATCH TRANSDERM SCH (08:25)
[2021-03-23] MEDS: HEPARIN SODIUM,PORCINE/PF 5,000 UNIT/0.5 ML SYRINGE SQ SCH (08:25)
[2021-03-23] MEDS: INSULIN DETEMIR (LEVEMIR) 100 UNIT/ML SYR SQ SCH (08:33)
[2021-03-23 08:36] LABS: Glucose,Whole Blood 272 mg/dL (75-99)
--- NOTE | 2021-03-23 09:37 | P.PN ---
Subjective Progress Note Date: 03/22/21 Principal diagnosis: Patient is seen for follow-up for end-stage renal disease. Patient was admitted to the hospital with increased weakness and increased redness and soreness of her left forefoot. Patient has been evaluated by vascular surgery and there are plans for left lower extremity angiogram for nonhealing ulceration with gangrene of the left second toe and patient was dialyzed yesterday. She tolerated her treatment well. She is maintained on a Saturday schedule. Pt is seen on HD. Objective - Vital Signs Vital signs: Vital Signs Temp 97.5 F L 03/23/21 08:34 Pulse 96 03/23/21 08:34 Resp 15 03/23/21 08:34 BP 151/85 03/23/21 08:34 Pulse Ox 96 03/23/21 08:34 Intake & Output 03/22/21 03/23/21 03/23/21 18:59 06:59 18:59 Intake Total 50 240 Output Total 2300 100 Balance -2250 140 Intake: IV 50 Oral 240 Output: Urine 100 Stool 0 Hemodialysis 2300 Other: Voiding Method Bedside Commode Bedside Commode Bedside Commode # Voids 1 - Exam Awake comfortable. Not in any acute distress. examination of the lower extremities shows left foot to be currently wrapped. - Labs CBC & Chem 7: 03/23/21 07:43 03/23/21 07:37 Labs: Abnormal Lab Results - Last 24 Hours (Table) 03/22/21 03/22/21 03/22/21 Range/Units 11:33 16:52 19:59 RBC (3.80-5.40) m/uL Hgb (11.4-16.0) gm/dL Hct (34.0-46.0) % Sodium (137-145) mmol/L Carbon Dioxide (22-30) mmol/L BUN (7-17) mg/dL Creatinine (0.52-1.04) mg/dL Glucose (74-99) mg/dL POC Glucose (mg/dL) 110 H 114 H 241 H (75-99) mg/dL 03/23/21 03/23/21 03/23/21 Range/Units 06:03 07:37 07:43 RBC 3.23 L (3.80-5.40) m/uL Hgb 10.1 L (11.4-16.0) gm/dL Hct 31.6 L (34.0-46.0) % Sodium 135 L (137-145) mmol/L Carbon Dioxide 21 L (22-30) mmol/L BUN 43 H (7-17) mg/dL Creatinine 6.33 H (0.52-1.04) mg/dL Glucose 232 H (74-99) mg/dL POC Glucose (mg/dL) 231 H (75-99) mg/dL 03/23/21 Range/Units 08:32 RBC (3.80-5.40) m/uL Hgb (11.4-16.0) gm/dL Hct (34.0-46.0) % Sodium (137-145) mmol/L Carbon Dioxide (22-30) mmol/L BUN (7-17) mg/dL Creatinine (0.52-1.04) mg/dL Glucose (74-99) mg/dL POC Glucose (mg/dL) 272 H (75-99) mg/dL Microbiology - Last 24 Hours (Table) 03/19/21 20:05 Blood Culture Gram Stain - Final Blood Blood Culture - Final Staphylococcus epidermidis 03/21/21 06:47 Blood Culture - Preliminary Blood No Growth after 24 hours 03/19/21 19:50 Blood Culture Gram Stain - Final Blood Blood Culture - Final Staphylococcus epidermidis Assessment and Plan Assessment: 1. End-stage renal disease maintained on hemodialysis on a Saturday vent is a Saturday schedule at the [facility] unit patient has a left IJ catheter she also has an AV fistula in her right arm which has recently been used, some bruising noted on it. 2. Hyperkalemia associated with end-stage renal disease, expect improvement post dialysis 3. Peripheral vascular disease with left second toe gangrene with some cellulitis noted. 4. CK D mineral bone disorder 5. Anemia of chronic disease 6. Staphylococcus epidermidis bacteremia, will remove IJ permacath. AV fistula accessed easily. Plan: Hemodialysis today Maintain patient on Aranesp Empiric antibiotics. DC IJ permacath in view of positive blood cultures. AV fistula accessed successfully today.
--- NOTE | 2021-03-23 09:58 | IR ---
Fluoroscopy HISTORY: Pain in left leg 0.9 minutes fluoroscopy time supplied to the referring clinician. 160 intraoperative C-arm images d ocument the procedure. See dictated report from vascular surgery.
--- NOTE | 2021-03-23 10:40 | P.DS ---
Providers Date of admission: 03/20/21 00:13 Expected date of discharge: 03/23/21 Attending physician: Adrienne Barragan MD Consults: 03/19/21 23:55 Consult Physician Routine Consulting Provider: Yonatan Alcala Consult Reason/Comments: Left toe wound Do you want consulting provider notified?: Yes Consult Physician Routine Consulting Provider: Ephraim Srivastava Consult Reason/Comments: Dialysis; hyperkalemia Do you want consulting provider notified?: Yes 03/20/21 11:22 Consult Physician Routine Consulting Provider: Jordan Ireland Consult Reason/Comments: toe wound Do you want consulting provider notified?: Yes Primary care physician: [facility] Course: HISTORY OF PRESENT ILLNESS This is a 76-year-old female patient of Dr. Lira with past medical history of end-stage renal disease, CVA, coronary artery disease,, diabetes mellitus type 2 insulin requiring, hypertension, hyperlipidemia, hypothyroidism, peripheral vascular disease, obstructive sleep apnea without CPAP, history of breast cancer status post radiation. Patient has recently been transitioned to HD and Dr. Nicolas or [place] 01/12/2021. Patient States That She Is Normally Saturday Dialysis and Denies Missing Any Recent Appointments. She Has a Left-Sided Port in Place and Also a Right-Sided Fistula. Patient presented with complaints of wound to the left second toe and redness to the left lower extremity been going on for extended period of time. She is established with the wound healing Center and recently on Bactrim. Patient presented to [facility] emergency center WBC 12.0, hemoglobin 9.8, platelet count 202. INR 1.0. Sodium 135, potassium 6.3 with repeat 5.7, chloride 95, CO2 27, BUN 52 creatinine 7.41. Blood sugar 111. Liver function tests were normal. Urinalysis turbid, leukoesterase large, RBCs 46, wbc's 129, squamous cells 118. Carotid virus PCR not detected. X-ray left toes showed no evidence of osteomyelitis. Patient seen today in the emergency center waiting for a bed on the cardiac stepdown unit. Consults in place with infectious disease and vascular surgery. 03/21: Vision has been seen by Dr. Ireland from infectious disease with plan for vancomycin, pharmacy dosing, dialysis catheter culture and blood culture repeated. Patient's been seen by vascular surgery with plan for angiogram tomorrow with Dr. Nicolas. Wound Center has evaluated patient with plan for dry gauze and follow-up with the wound center at discharge. Patient denies any new complaints. She has been afebrile, heart rate 68, blood pressure 146/81, pulse ox 94% on 2 L nasal cannula. Repeat blood work reveals sodium 137, potassium 5.7, chloride 97, BUN 40 creatinine 6.89. Blood sugars running between 121 and 246 but improving. Vancomycin level XXVI.4. C-reactive protein 8.1. Blood cultures positive for Staphylococcus epidermidis. Discharge plan is to return home most likely and insurance coverage for IV antibiotics is being checked by case specialist. 03/22: Patient denies any new concerns. Her blood sugars are running between 135 and 191. She has been continued on dialysis per nephrology. Patient has been afebrile, heart rate 72, blood pressure 143/70, pulse ox 87% on room air but all other readings are in the 90s. Angiogram today with Dr. Nicolas. Lower extremity arterial Doppler revealed mild right fem-pop disease. At least moderate left fem-pop disease. Disease appears to be predominantly distal. Discharge plan is most likely home with homecare. terminal operations manager is following closely. 03/23: Both Dr. Che and Dr. Ireland would like permacath removed prior to discharge. Patient's nurse is working to get this completed. Dr. Ireland is recommended vancomycin for 2 weeks with dialysis. Patient is planning to return home. Yesterday, patient underwent aortogram with runoff yesterday with Dr. Nicolas finding peripheral artery disease. Patient remains afebrile, heart rate 62, blood pressure 151/85, pulse ox 96% on room air. Repeat blood work reveals WBC 9.7, hemoglobin 10.1, platelet count 213. Sodium 135, potassium 5.1, chloride 98, CO2 21, BUN 43 creatinine 6.33. Blood sugars are running in the 200s, 231-272. Small amount of NovoLog scheduled with meals will also be added into patient is discharge. Anticipate discharge later today. DISCHARGE DIAGNOSES 1. Diabetic and peripheral vascular disease ulcer to the left second toe. 2. Diabetes mellitus type 2 insulin requiring. 3. End-stage renal disease on hemodialysis Saturday. 4. Hyperkalemia secondary to acute kidney injury. 5. Coronary artery disease. 6. History of CVA with short-term memory deficit. 7. Hypertension. 8. Hyperlipidemia. 9. Hypothyroidism. 10. Peripheral vascular disease. 11. History of obstructive sleep apnea not utilizing CPAP. 12. History of breast cancer status post radiation, stable. 13. COVID-19 testing negative. Patient has been hospitalized during a pandemic. DISCHARGE PLAN Home with IV Vanco w HD Greater than 35 minutes was utilized and coordinating patient's discharge. Impression and plan of care have been directed as dictated by the signing physician. Chula Perdomo nurse practitioner acting as scribe for signing physician. Patient Condition at Discharge: Good Plan - Discharge Summary Discharge Rx Participant: No New Discharge Prescriptions: New Vancomycin 1,000 mg IVPB MOWEFR #6 each Continue Aspirin [Adult Low Dose Aspirin EC] 81 mg PO DAILY Clopidogrel [Plavix] 75 mg PO DAILY Docusate [Colace] 100 mg PO DAILY PRN PRN Reason: Constipation Insulin Aspart [NovoLOG Flexpen] 10 units SQ ACHS PRN PRN Reason: Blood Sugar - High Ondansetron [Zofran] 4 mg PO DAILY PRN PRN Reason: Nausea And Vomiting Rivastigmine 4.6MG/24Hr Patch [Exelon 4.6MG/24Hr Patch] 1 patch TRANSDERM Q24HR Triphrocaps 1 tab PO HS Acetaminophen [Tylenol] 650 mg PO Q4H PRN PRN Reason: Pain amLODIPine [Norvasc] 2.5 mg PO BID Diphenoxylate HCl/Atropine [Lomotil 2.5-0.025 mg Tablet] 1 tab PO BID PRN PRN Reason: Diarrhea Insulin Degludec [Tresiba] 16 units SQ QAM Levothyroxine Sodium [Synthroid] 75 mcg PO DAILY Metoprolol Tartrate [Lopressor] 50 mg PO BID Pantoprazole [Protonix] 40 mg PO DAILY Prochlorperazine [Compazine] 10 mg PO Q8H PRN PRN Reason: Nausea Rosuvastatin [Crestor] 10 mg PO HS Nitroglycerin 0.4 mg SUBLINGUAL Q5M PRN PRN Reason: Chest Pain Discharge Medication List Acetaminophen [Tylenol] 650 mg PO Q4H PRN 01/11/21 [History] Aspirin [Adult Low Dose Aspirin EC] 81 mg PO DAILY 01/11/21 [History] Clopidogrel [Plavix] 75 mg PO DAILY 01/11/21 [History] Diphenoxylate HCl/Atropine [Lomotil 2.5-0.025 mg Tablet] 1 tab PO BID PRN 01/11/21 [History] Docusate [Colace] 100 mg PO DAILY PRN 01/11/21 [History] Insulin Aspart [NovoLOG Flexpen] 10 units SQ ACHS PRN 01/11/21 [History] Insulin Degludec [Tresiba] 16 units SQ QAM 01/11/21 [History] Levothyroxine Sodium [Synthroid] 75 mcg PO DAILY 01/11/21 [History] Metoprolol Tartrate [Lopressor] 50 mg PO BID 01/11/21 [History] Nitroglycerin 0.4 mg SUBLINGUAL Q5M PRN 01/11/21 [History] Ondansetron [Zofran] 4 mg PO DAILY PRN 01/11/21 [History] Pantoprazole [Protonix] 40 mg PO DAILY 01/11/21 [History] Prochlorperazine [Compazine] 10 mg PO Q8H PRN 01/11/21 [History] Rivastigmine 4.6MG/24Hr Patch [Exelon 4.6MG/24Hr Patch] 1 patch TRANSDERM Q24HR 01/11/21 [History] Rosuvastatin [Crestor] 10 mg PO HS 01/11/21 [History] Triphrocaps 1 tab PO HS 01/11/21 [History] amLODIPine [Norvasc] 2.5 mg PO BID 01/11/21 [History] Vancomycin 1,000 mg IVPB MOWEFR #6 each 03/23/21 [Rx] Follow up Appointment(s)/Referral(s): Luis Lira MD [Primary Care Provider] - 1 Week Jordan Ireland MD [STAFF PHYSICIAN] - 1 Week Sally Nicolas DO [STAFF PHYSICIAN] - 1 Week Discharge Disposition: HOME SELF-CARE
[2021-03-23 11:31] LABS: Glucose,Whole Blood 279 mg/dL (75-99)
--- NOTE | 2021-03-23 11:40 | P.PN ---
Subjective Principal diagnosis: Patient is seen for follow-up for end-stage renal disease. Patient was admitted to the hospital with increased weakness and increased redness and soreness of her left forefoot. Patient has been evaluated by vascular surgery and is status post aortogram done yesterday. She tolerated her dialysis treatment well. She is maintained on a Saturday schedule. AV fistula was accessed without any difficulty Objective - Vital Signs Vital signs: Vital Signs Temp 97.5 F L 03/23/21 08:34 Pulse 96 03/23/21 08:34 Resp 15 03/23/21 08:34 BP 151/85 03/23/21 08:34 Pulse Ox 96 03/23/21 08:34 Intake & Output 03/22/21 03/23/21 03/23/21 18:59 06:59 18:59 Intake Total 50 240 Output Total 2300 100 Balance -2250 140 Intake: IV 50 Oral 240 Output: Urine 100 Stool 0 Hemodialysis 2300 Other: Voiding Method Bedside Commode Bedside Commode Bedside Commode # Voids 1 - Exam Awake comfortable. Not in any acute distress. examination of the lower extremities shows left foot to be currently wrapped. Examination of the heart S1 and S2 Examination lungs bilateral breath sounds are heard Abdomen is soft obese nontender - Labs CBC & Chem 7: 03/23/21 07:43 03/23/21 07:37 Labs: Abnormal Lab Results - Last 24 Hours (Table) 03/22/21 03/22/21 03/23/21 Range/Units 16:52 19:59 06:03 RBC (3.80-5.40) m/uL Hgb (11.4-16.0) gm/dL Hct (34.0-46.0) % Sodium (137-145) mmol/L Carbon Dioxide (22-30) mmol/L BUN (7-17) mg/dL Creatinine (0.52-1.04) mg/dL Glucose (74-99) mg/dL POC Glucose (mg/dL) 114 H 241 H 231 H (75-99) mg/dL 03/23/21 03/23/21 03/23/21 Range/Units 07:37 07:43 08:32 RBC 3.23 L (3.80-5.40) m/uL Hgb 10.1 L (11.4-16.0) gm/dL Hct 31.6 L (34.0-46.0) % Sodium 135 L (137-145) mmol/L Carbon Dioxide 21 L (22-30) mmol/L BUN 43 H (7-17) mg/dL Creatinine 6.33 H (0.52-1.04) mg/dL Glucose 232 H (74-99) mg/dL POC Glucose (mg/dL) 272 H (75-99) mg/dL 03/23/21 Range/Units 11:29 RBC (3.80-5.40) m/uL Hgb (11.4-16.0) gm/dL Hct (34.0-46.0) % Sodium (137-145) mmol/L Carbon Dioxide (22-30) mmol/L BUN (7-17) mg/dL Creatinine (0.52-1.04) mg/dL Glucose (74-99) mg/dL POC Glucose (mg/dL) 279 H (75-99) mg/dL Microbiology - Last 24 Hours (Table) 03/21/21 06:47 Blood Culture - Preliminary Blood No Growth after 48 hours 03/19/21 20:05 Blood Culture Gram Stain - Final Blood Blood Culture - Final Staphylococcus epidermidis 03/19/21 19:50 Blood Culture Gram Stain - Final Blood Blood Culture - Final Staphylococcus epidermidis Assessment and Plan Assessment: 1. End-stage renal disease maintained on hemodialysis on a Saturday vent is a Saturday schedule at the [facility] unit patient has a left IJ catheter she also has an AV fistula in her right arm which has recently been used, some bruising noted on it. 2. Hyperkalemia associated with end-stage renal disease, expect improvement post dialysis 3. Peripheral vascular disease with left second toe gangrene with some cellulitis noted. 4. CK D mineral bone disorder 5. Anemia of chronic disease 6. Staphylococcus epidermidis bacteremia, will remove IJ permacath. AV fistula accessed easily. Plan: Hemodialysis in a.m. Maintain patient on Aranesp Empiric antibiotics. DC IJ permacath in view of positive blood cultures. AV fistula accessed successfully
[2021-03-23] MEDS ORDERED: DARBEPOETIN ALFA 60 MCG/0.3 ML SYRINGE SQ SCH (12:00)
[2021-03-23 12:16] VITALS: RESP 16
[2021-03-23] MEDS ORDERED: LIDOCAINE 1% INJ 10MG/ML (20 ML MDV) SQ ONE (12:54)
--- NOTE | 2021-03-23 15:34 | P.PN ---
Subjective Progress Note Date: 03/23/21 Patient seen and examined lying in bed. No acute changes through the night. Patient has been afebrile. She is on ceftriaxone and vancomycin. Patient underwent aortogram yesterday with Dr. Nicolas. The exit sites without any evidence of bleeding. No fevers or chills. Patient underwent hemodialysis acc ess through the right fistula. Objective - Vital Signs Vital signs: Vital Signs Temp 97.5 F L 03/23/21 08:34 Pulse 96 03/23/21 08:34 Resp 15 03/23/21 08:34 BP 151/85 03/23/21 08:34 Pulse Ox 96 03/23/21 08:34 Intake & Output 03/22/21 03/23/21 03/23/21 18:59 06:59 18:59 Intake Total 50 240 Output Total 2300 100 Balance -2250 140 Intake: IV 50 Oral 240 Output: Urine 100 Stool 0 Hemodialysis 2300 Other: Voiding Method Bedside Commode Bedside Commode Bedside Commode # Voids 1 - Exam General appearance: The patient is alert, oriented, appears in no acute distress. HET: Head is normocephalic and atraumatic. Pupils are equal and reactive. Extremities: Normal skin color and turgor. No cyanosis, rash, ulceration, clubbing, or edema. Left foot second toe debridement site with dry gangrene.. There is some redness noted on the dorsal aspect of her foot and up to the left becker, improved. Nonpalpable dorsalis pedis pulse. Good capillary refill. Neurological: No focal deficits. Strength and sensation are grossly intact. - Labs CBC & Chem 7: 03/23/21 07:43 03/23/21 07:37 Labs: Abnormal Lab Results - Last 24 Hours (Table) 03/22/21 03/22/21 03/22/21 Range/Units 11:33 16:52 19:59 RBC (3.80-5.40) m/uL Hgb (11.4-16.0) gm/dL Hct (34.0-46.0) % Sodium (137-145) mmol/L Carbon Dioxide (22-30) mmol/L BUN (7-17) mg/dL Creatinine (0.52-1.04) mg/dL Glucose (74-99) mg/dL POC Glucose (mg/dL) 110 H 114 H 241 H (75-99) mg/dL 03/23/21 03/23/21 03/23/21 Range/Units 06:03 07:37 07:43 RBC 3.23 L (3.80-5.40) m/uL Hgb 10.1 L (11.4-16.0) gm/dL Hct 31.6 L (34.0-46.0) % Sodium 135 L (137-145) mmol/L Carbon Dioxide 21 L (22-30) mmol/L BUN 43 H (7-17) mg/dL Creatinine 6.33 H (0.52-1.04) mg/dL Glucose 232 H (74-99) mg/dL POC Glucose (mg/dL) 231 H (75-99) mg/dL 03/23/21 Range/Units 08:32 RBC (3.80-5.40) m/uL Hgb (11.4-16.0) gm/dL Hct (34.0-46.0) % Sodium (137-145) mmol/L Carbon Dioxide (22-30) mmol/L BUN (7-17) mg/dL Creatinine (0.52-1.04) mg/dL Glucose (74-99) mg/dL POC Glucose (mg/dL) 272 H (75-99) mg/dL Microbiology - Last 24 Hours (Table) 03/19/21 20:05 Blood Culture Gram Stain - Final Blood Blood Culture - Final Staphylococcus epidermidis 03/21/21 06:47 Blood Culture - Preliminary Blood No Growth after 24 hours 03/19/21 19:50 Blood Culture Gram Stain - Final Blood Blood Culture - Final Staphylococcus epidermidis Assessment and Plan Assessment: 1. Left chronic nonhealing diabetic toe ulcer with dry gangrene 2. Peripheral arterial disease 3. Diabetes mellitus 4. Bacteremia, positive blood cultures 5. End-stage renal disease on hemodialysis 6. History of coronary artery disease 7. History of CVA, memory impairment Plan: 1. Arterial duplex reviewed 2. Will plan for removal of left chest wall tunneled catheter this afternoon as requested by infectious disease for bacteremia at the bedside 3. May resume diet after procedure 4. Resume Plavix 5. Follow-up with Dr. Nicolas in 1-2 weeks 6. Patient is otherwise clear from vascular surgery for discharge Thank you for this consultation, we will continue to follow. The impression and plan of care has been dictated as directed. Dr. Maria I performed a history and examination of this patient, discussed the same with the dictator. I agree with the dictator's note ,documented as a scribe. Any additional findings or plans will be noted.
--- NOTE | 2021-03-23 16:50 | P.OP ---
Date of Procedure: 03/23/21 Preoperative Diagnosis: Suspected line sepsis. Postoperative Diagnosis: Same. Procedure(s) Performed: Removal of tunneled hemodialysis catheter. Implants: None. Anesthesia: local (1% Xylocaine.) Surgeon: Alireza Maria Estimated Blood Loss (ml): 5 IV fluids (ml): 0 Urine output (ml): 0 Pathology: none sent Condition: stable Disposition: no change Indications for Procedure: Patient is a 76-year-old dialysis-dependent patient who developed ischemic changes of her left lower external. She was also found to have positive blood cultures. Is felt the catheter is the most likely source of infection and because the patient has a functional AV fistula for dialysis the catheter is no longer needed Description of Procedure: The patient was laid supine in her bed. A tunneled hemodialysis catheter is identified entering the skin at the anterior chest wall and his tunneled via the internal jugular vein. The cuff is located near the insertion site. The area was sterilely prepped and draped. 1% Xylocaine was utilized for local anesthesia of the tissues overlying the cuff. A small skin incision was made and the cuff was identified. The cuff was then dissected free of investing tissues and the catheter was then removed in its entirety. Appropriate dressing was applied. Patient tolerated the procedure well.
[2021-03-23 16:52] LABS: Glucose,Whole Blood 135 mg/dL (75-99)
[2021-03-23 19:58] VITALS: BP 133/63; PULSE 63
== END 2021-03-23 18:20 | disposition home or self-care (01) | DRG 314 ==
LOC: EC 18:35 → 3SCARD 03-20 00:13 → 5NMEDONC 03-20 12:14 → 3SCARD 03-22 14:55
PROVIDERS: ADMIT Internal Medicine; ATTEND Internal Medicine
PROC: B44GZZZ Ultrasonography of Left Lower Extremity Arteries (ICD-10-PCS; 2021-03-20)
PROC: 5A1D70Z Performance of Urinary Filtration, Intermittent, Less than 6 Hours Per Day (ICD-10-PCS; 2021-03-20)
PROC: B41D1ZZ Fluoroscopy of Aorta and Bilateral Lower Extremity Arteries using Low Osmolar Contrast (ICD-10-PCS; 2021-03-22 14:00)
PROC: 0JPT0XZ Removal of Tunneled Vascular Access Device from Trunk Subcutaneous Tissue and Fascia, Open Approach (ICD-10-PCS; principal; 2021-03-23)
DX: T82.7XXA Infection and inflammatory reaction due to other cardiac and vascular devices, implants and grafts, initial encounter (principal); N18.6 End stage renal disease; R78.81 Bacteremia; N17.9 Acute kidney failure, unspecified; I12.0 Hypertensive chronic kidney disease with stage 5 chronic kidney disease or end stage renal disease; I96 Gangrene, not elsewhere classified; L03.116 Cellulitis of left lower limb; E11.51 Type 2 diabetes mellitus with diabetic peripheral angiopathy without gangrene; D63.1 Anemia in chronic kidney disease; E83.9 Disorder of mineral metabolism, unspecified; E11.22 Type 2 diabetes mellitus with diabetic chronic kidney disease; L97.523 Non-pressure chronic ulcer of other part of left foot with necrosis of muscle; E11.621 Type 2 diabetes mellitus with foot ulcer; I70.245 Atherosclerosis of native arteries of left leg with ulceration of other part of foot; Z79.4 Long term (current) use of insulin; Z99.2 Dependence on renal dialysis; Z20.822 Contact with and (suspected) exposure to COVID-19; B95.7 Other staphylococcus as the cause of diseases classified elsewhere; E87.5 Hyperkalemia; E03.9 Hypothyroidism, unspecified; E78.5 Hyperlipidemia, unspecified; I25.10 Atherosclerotic heart disease of native coronary artery without angina pectoris; I25.2 Old myocardial infarction; R32 Unspecified urinary incontinence; G47.33 Obstructive sleep apnea (adult) (pediatric); M19.90 Unspecified osteoarthritis, unspecified site; Z79.82 Long term (current) use of aspirin; Z79.02 Long term (current) use of antithrombotics/antiplatelets; Z79.890 Hormone replacement therapy; Z79.899 Other long term (current) drug therapy; Z86.73 Personal history of transient ischemic attack (TIA), and cerebral infarction without residual deficits; Z92.3 Personal history of irradiation; Z85.3 Personal history of malignant neoplasm of breast; Z86.14 Personal history of Methicillin resistant Staphylococcus aureus infection; Z90.49 Acquired absence of other specified parts of digestive tract; Z95.1 Presence of aortocoronary bypass graft; Z90.710 Acquired absence of both cervix and uterus; Z96.653 Presence of artificial knee joint, bilateral; Z90.12 Acquired absence of left breast and nipple; Z87.42 Personal history of other diseases of the female genital tract; Z98.42 Cataract extraction status, left eye; Z98.41 Cataract extraction status, right eye; Z98.890 Other specified postprocedural states; Y84.1 Kidney dialysis as the cause of abnormal reaction of the patient, or of later complication, without mention of misadventure at the time of the procedure; Z91.041 Radiographic dye allergy status; Z91.040 Latex allergy status; Z80.3 Family history of malignant neoplasm of breast; Z82.49 Family history of ischemic heart disease and other diseases of the circulatory system; Z83.3 Family history of diabetes mellitus
CPT/HCPCS: 36200; 36415; 75625; 75716; 76937; 80048; 80053; 80202; 81001; 83605; 84132; 85025; 85027; 85610; 85652; 85730; 86140; 87040; 87077; 87086; 87186; 87635; 90935; 93005; 93923; 96365; 96375; 99285

== ENCOUNTER 2021-03-24 09:57 | Emergency (ER) | payer MEDICARE ==
[2021-03-24 10:01] VITALS: TEMP 98.8
[2021-03-24] MEDS ORDERED: MORPHINE SULFATE 4 MG/ML SYRINGE IM STA (11:32)
--- NOTE | 2021-03-24 11:38 | ED ---
General Adult HPI - General Chief complaint: Extremity Problem,Nontraumatic Stated complaint: Lt Foot Pain Time Seen by Provider: 03/24/21 11:20 Source: patient, family, RN notes reviewed, old records reviewed Mode of arrival: ambulatory Limitations: no limitations - History of Present Illness Initial comments: 76-year-old female presents to the emergency room with complaints of left second toe pain. States she was just discharged from the hospital yesterday and has increased pain today. She states that the redness seems to be increasing and she was not prescribed antibiotics. She is scheduled to have vancomycin with her hemodialysis today. She was told to follow-up with wound care but states that the pain is bad, 9 out of 10 today and came to the emergency room for relief. -: week(s) (1) Severity scale (1-10): 9 Quality: sharp Consistency: constant Improves with: none Worsens with: none - Related Data Home Medications Medication Instructions Recorded Confirmed Acetaminophen [Tylenol] 650 mg PO Q4H PRN 01/11/21 03/20/21 Aspirin [Adult Low Dose Aspirin EC] 81 mg PO DAILY 01/11/21 03/20/21 Clopidogrel [Plavix] 75 mg PO DAILY 01/11/21 03/20/21 Diphenoxylate HCl/Atropine 1 tab PO BID PRN 01/11/21 03/20/21 [Lomotil 2.5-0.025 mg Tablet] Docusate [Colace] 100 mg PO DAILY PRN 01/11/21 03/20/21 Insulin Aspart [NovoLOG Flexpen] 10 units SQ ACHS PRN 01/11/21 03/20/21 Insulin Degludec [Tresiba] 16 units SQ QAM 01/11/21 03/20/21 Levothyroxine Sodium [Synthroid] 75 mcg PO DAILY 01/11/21 03/20/21 Metoprolol Tartrate [Lopressor] 50 mg PO BID 01/11/21 03/20/21 Nitroglycerin 0.4 mg SUBLINGUAL Q5M PRN 01/11/21 03/20/21 Ondansetron [Zofran] 4 mg PO DAILY PRN 01/11/21 03/20/21 Pantoprazole [Protonix] 40 mg PO DAILY 01/11/21 03/20/21 Prochlorperazine [Compazine] 10 mg PO Q8H PRN 01/11/21 03/20/21 Rivastigmine 4.6MG/24Hr Patch 1 patch TRANSDERM Q24HR 01/11/21 03/20/21 [Exelon 4.6MG/24Hr Patch] Rosuvastatin [Crestor] 10 mg PO HS 01/11/21 03/20/21 Triphrocaps 1 tab PO HS 01/11/21 03/20/21 amLODIPine [Norvasc] 2.5 mg PO BID 01/11/21 03/20/21 Previous Rx's Medication Instructions Recorded Vancomycin 1,000 mg IVPB MOWEFR #6 each 03/23/21 Allergies Allergy/AdvReac Type Severity Reaction Status Date / Time Iodinated Contrast Media Allergy Severe Anaphylaxis Verified 03/24/21 10:01 latex Allergy Itching Verified 03/24/21 10:01 Review of Systems ROS Statement: Those systems with pertinent positive or pertinent negative responses have been documented in the HPI. ROS Other: All systems not noted in ROS Statement are negative. Past Medical History Past Medical History: Coronary Artery Disease (CAD), Cancer, CVA/TIA, Diabetes Mellitus, Hyperlipidemia, Hypertension, Myocardial Infarction (MD), Osteoarthritis (OA), Renal Disease, Sleep Apnea/CPAP/BIPAP, Thyroid Disorder Additional Past Medical History / Comment(s): stroke Jan 2020-diff walking-uses a walker also effects speech, no cpap used, diarrhea, hemodialysis MOWEFR, hx breast cancer(radiation) Last Myocardial Infarction Date:: unknown History of Any Multi-Drug Resistant Organisms: MRSA Date of last positivie culture/infection: 2017 MDRO Source:: face Past Surgical History: Breast Surgery, Cholecystectomy, Coronary Bypass/CABG, Hysterectomy, Joint Replacement Additional Past Surgical History / Comment(s): left breast lumpectomy, mary jane knee replacement, mar yjane cataracts, triple CABG 45-5 yrs ago, port in chest for dialysis Past Anesthesia/Blood Transfusion Reactions: No Reported Reaction Past Psychological History: No Psychological Hx Reported Smoking Status: Never smoker Past Alcohol Use History: None Reported Past Drug Use History: None Reported - Past Family History Daughter(s) Family Medical History: Cancer Additional Family Medical History / Comment(s): breast Father Family Medical History: Myocardial Infarction (MD) Additional Family Medical History / Comment(s): Father of a MD in his 60s. Mother Additional Family Medical History / Comment(s): Mother had heart disease General Exam Limitations: no limitations General appearance: alert, in no apparent distress Head exam: Present: atraumatic Eye exam: Present: normal appearance. Absent: scleral icterus, conjunctival injection Respiratory exam: Present: normal lung sounds bilaterally. Absent: respiratory distress, wheezes, rales, rhonchi, stridor Cardiovascular Exam: Present: bradycardia GI/Abdominal exam: Present: soft. Absent: distended, tenderness Left Ankle exam: Present: normal inspection Foot/Toe exam: Present: tenderness, erythema. Absent: deformity (Second digit with eschar and erythema up the dorsal aspect of the foot up lower leg) Neurovascular tendon exam: Absent: extremity cold to touch, foot drop Back exam: Present: normal inspection, other (Abrasions to mid/upper back from scratching) Neurological exam: Present: alert, oriented X3 Psychiatric exam: Present: normal affect, normal mood, other (tearful) Skin exam: Present: warm, dry, erythema (left dorsal aspect foot and lower leg). Absent: cyanosis, diaphoretic Course Vital Signs 03/24/21 03/24/21 03/24/21 09:59 12:06 12:59 Temperature 98.8 F Pulse Rate 55 L 76 65 Respiratory 24 18 18 Rate Blood Pressure 97/48 135/53 142/50 O2 Sat by Pulse 98 94 L 97 Oximetry Medical Decision Making - Medical Decision Making 76-year-old female presents to the emergency room with complaints of left second toe pain. States she was just discharged from the hospital yesterday and has increased pain today. She is scheduled to have vancomycin with her hemodialysis today. X-ray of the left toe shows acute osteomyelitis middle and distal phalanx of the second digit. There is soft tissue swelling of the third digit with soft tissue changes between the second and third digits compared to 03/19/2021. I did speak with Dr. Lira at 1240 and he states that the patient is on vancomycin that this is a dry gangrene and she does have an appointment with Dr. Nicolas coming up in a couple of weeks. He suggested tramadol for pain and to continue with wound care as previously directed. Patient was directed to go to dialysis today to get her vancomycin and she was given a take home dose of tramadol at discharge for pain. Case discussed with Dr. Marx. Disposition Clinical Impression: Ulcer of toe of left foot Disposition: HOME SELF-CARE Condition: Good Instructions (If sedation given, give patient instructions): Diabetic Foot Ulcers (ED) Additional Instructions: Your antibiotics are being given at dialysis, keep her dialysis appointment today. Tylenol and or Motrin as needed for pain. Keep your appointment as scheduled with Dr. Nicolas. Follow-up Dr. Lira in the office next week. Is patient prescribed a controlled substance at d/c from ED?: No Referrals: Luis Lira MD [Primary Care Provider] - 1-2 days Time of Disposition: 12:41
[2021-03-24 12:09] VITALS: RESP 18
--- NOTE | 2021-03-24 12:21 | XR ---
EXAMINATION TYPE: XR toes LT DATE OF EXAM: 03/24/2021 COMPARISON: 03/19/2021 HISTORY: Pain second and third toe infection, increased redness and pain TECHNIQUE: 3V left foot toes FINDINGS: There appears to be some loss of the soft tissue at the distal second digit. There is incre asing lucency within the distal phalanx of the second digit. Correlate for acute osteomyelitis. On the lateral projection there appears to be erosion of the inferior aspect of the middle phalanx in digit. Some soft tissue swelling of the third digit may be present. Soft tissue changes are between the se[place] nd and third digits. Vascular calcification is noted. IMPRESSION: 1. Findings suggestive for acute osteomyelitis middle and distal phalanx second digit. 2. Soft tissue swelling third digit soft tissue changes between the second and third digits.
[2021-03-24] MEDS ORDERED: ONDANSETRON 4 MG/2 ML VIAL IVP STA (12:26)
[2021-03-24] MEDS ORDERED: traMADol 50 MG STARTER PACK 3 TAB BTL PO STA (12:42)
[2021-03-24 13:00] VITALS: BP 142/50; PULSE 65
== END 2021-03-24 13:00 | disposition home or self-care (01) ==
LOC: EC 09:57
DX: E11.621 Type 2 diabetes mellitus with foot ulcer (principal); L97.528 Non-pressure chronic ulcer of other part of left foot with other specified severity; I25.10 Atherosclerotic heart disease of native coronary artery without angina pectoris; E78.5 Hyperlipidemia, unspecified; I10 Essential (primary) hypertension; I25.2 Old myocardial infarction; M19.90 Unspecified osteoarthritis, unspecified site; E07.9 Disorder of thyroid, unspecified; Z79.82 Long term (current) use of aspirin; Z79.02 Long term (current) use of antithrombotics/antiplatelets; Z79.4 Long term (current) use of insulin; Z91.040 Latex allergy status; Z86.73 Personal history of transient ischemic attack (TIA), and cerebral infarction without residual deficits; Z85.3 Personal history of malignant neoplasm of breast; Z90.49 Acquired absence of other specified parts of digestive tract; Z95.1 Presence of aortocoronary bypass graft; Z90.710 Acquired absence of both cervix and uterus; Z96.653 Presence of artificial knee joint, bilateral
CPT/HCPCS: 99283; 96372; 73660; J2270

== ENCOUNTER 2021-05-10 09:27 | Inpatient (IN) | payer MEDICARE ==
[2021-05-10] MEDS ORDERED: PIPERACILLIN-TAZOBACTAM 3.375 GM in SODIUM CHLORIDE 0.9% 100 ML IVPB STA (09:57)
[2021-05-10] MEDS ORDERED: VANCOMYCIN IV PER PHARMACY 1 EACH MISC MISCELLANE PRN (09:58)
[2021-05-10] MEDS ORDERED: MORPHINE SULFATE 4 MG/ML SYRINGE IVP STA (09:58)
[2021-05-10] MEDS ORDERED: ONDANSETRON 4 MG/2 ML VIAL IVP STA (09:58)
[2021-05-10] MEDS ORDERED: VANCOMYCIN 1,500 MG in SODIUM CHLORIDE 0.9% 250 ML IVPB STA (10:02)
[2021-05-10 10:56] LABS: Basophils % (A) 0 %; Eosinophils # (A) 0.1 k/uL (0-0.7); Eosinophils % (A) 1 %; HCT 31.7 % (34.0-46.0); HGB 10.1 gm/dL (11.4-16.0); Hypochromasia Slight; Lymphocytes # (A) 0.7 k/uL (1.0-4.8); Lymphocytes % (A) 4 %; MCH 30.4 pg (25.0-35.0); MCV 94.9 fL (80.0-100.0); Mean Platelet Volume 7.2; Monocytes # (A) 0.7 k/uL (0-1.0); Monocytes % (A) 4 %; Neutrophils # (A) 15.7 k/uL (1.3-7.7); Neutrophils % (A) 90 %; Platelet Count 303 k/uL (150-450); RBC 3.34 m/uL (3.80-5.40); RDW 14.5 % (11.5-15.5); WBC 17.5 k/uL (3.8-10.6)
[2021-05-10] MEDS ORDERED: NALOXONE 0.4 MG/ML 1 ML VIAL IVP STA (10:58)
[2021-05-10 11:05] LABS: Partial Thromboplastin Time 27.5 sec (22.0-30.0); Prothrombin Time 10.8 sec (9.0-12.0)
[2021-05-10 11:10] LABS: Albumin 3.5 g/dL (3.5-5.0); Calcium 8.9 mg/dL (8.4-10.2); Magnesium 1.9 mg/dL (1.6-2.3); Phosphorus 6.1 mg/dL (2.5-4.5); Potassium 4.4 mmol/L (3.5-5.1); Total Bilirubin 0.7 mg/dL (0.2-1.3); Total Protein 6.7 g/dL (6.3-8.2)
--- NOTE | 2021-05-10 11:25 | XR ---
Left foot HISTORY: Infection 3 views of the left foot correlated to left toes dated 03/24/2021 Bone mineralization is reduced. There are dense vascular calcifications present, correlate for possib le diabetes. Some arthropathy changes present. There is no periosteal reaction to suggest osteomyelit is. Soft tissue swelling is noted at the first digit, correlate for cellulitis or edema. There is a p lantar calcaneal spur. Spurring is present at the tibiotalar joint. Enthesophyte present at the inser tion of the Achilles tendon. impression: Soft tissue swelling, bone scan may be of benefit
[2021-05-10 11:38] LABS: Glucose,Whole Blood 97 mg/dL (75-99)
--- NOTE | 2021-05-10 11:49 | ED ---
Skin/Abscess/FB HPI - General Chief complaint: Skin/Abscess/Foreign Body Stated complaint: Toe Infection Time Seen by Provider: 05/10/21 09:42 Source: patient, family, RN notes reviewed Mode of arrival: wheelchair Limitations: no limitations - History of Present Illness Initial comments: This a 76-year-old female presents emergency from chief complaint of left foot infection. Patient was sent over by Dr. Nicolas vascular surgeon for amputation of her second digit. She has been struggling with an infection which has been hospitalized for the past she recently had increasing redness up her foot, lower leg. Toe is found to be necrotic appearing patient states that the pain has been worsening she is known diabetic, patient has end-stage renal disease on dialysis. Patient is scheduled for dialysis today. Patient reports no recent fever patient does admit that she does not feel well in general. - Related Data Home Medications Medication Instructions Recorded Confirmed Acetaminophen [Tylenol] 650 mg PO Q4H PRN 01/11/21 03/20/21 Aspirin [Adult Low Dose Aspirin EC] 81 mg PO DAILY 01/11/21 03/20/21 Clopidogrel [Plavix] 75 mg PO DAILY 01/11/21 03/20/21 Diphenoxylate HCl/Atropine 1 tab PO BID PRN 01/11/21 03/20/21 [Lomotil 2.5-0.025 mg Tablet] Docusate [Colace] 100 mg PO DAILY PRN 01/11/21 03/20/21 Insulin Aspart [NovoLOG Flexpen] 10 units SQ ACHS PRN 01/11/21 03/20/21 Insulin Degludec [Tresiba] 16 units SQ QAM 01/11/21 03/20/21 Levothyroxine Sodium [Synthroid] 75 mcg PO DAILY 01/11/21 03/20/21 Metoprolol Tartrate [Lopressor] 50 mg PO BID 01/11/21 03/20/21 Nitroglycerin 0.4 mg SUBLINGUAL Q5M PRN 01/11/21 03/20/21 Ondansetron [Zofran] 4 mg PO DAILY PRN 01/11/21 03/20/21 Pantoprazole [Protonix] 40 mg PO DAILY 01/11/21 03/20/21 Prochlorperazine [Compazine] 10 mg PO Q8H PRN 01/11/21 03/20/21 Rivastigmine 4.6MG/24Hr Patch 1 patch TRANSDERM Q24HR 01/11/21 03/20/21 [Exelon 4.6MG/24Hr Patch] Rosuvastatin [Crestor] 10 mg PO HS 01/11/21 03/20/21 Triphrocaps 1 tab PO HS 01/11/21 03/20/21 amLODIPine [Norvasc] 2.5 mg PO BID 01/11/21 03/20/21 Previous Rx's Medication Instructions Recorded Vancomycin 1,000 mg IVPB MOWEFR #6 each 03/23/21 Allergies Allergy/AdvReac Type Severity Reaction Status Date / Time Iodinated Contrast Media Allergy Severe Anaphylaxis Verified 05/10/21 09:37 latex Allergy Itching Verified 05/10/21 09:37 Review of Systems ROS Statement: Those systems with pertinent positive or pertinent negative responses have been documented in the HPI. ROS Other: All systems not noted in ROS Statement are negative. Past Medical History Past Medical History: Coronary Artery Disease (CAD), Cancer, CVA/TIA, Diabetes Mellitus, Hyperlipidemia, Hypertension, Myocardial Infarction ([place]), Osteoarthritis (OA), Renal Disease, Sleep Apnea/CPAP/BIPAP, Thyroid Disorder Additional Past Medical History / Comment(s): stroke Jan 2020-diff walking-uses a walker also effects speech, no cpap used, diarrhea, hemodialysis MOWEFR, hx breast cancer(radiation) Last Myocardial Infarction Date:: unknown History of Any Multi-Drug Resistant Organisms: MRSA Date of last positivie culture/infection: 2017 MDRO Source:: face Past Surgical History: Breast Surgery, Cholecystectomy, Coronary Bypass/CABG, Hysterectomy, Joint Replacement Additional Past Surgical History / Comment(s): left breast lumpectomy, mary jane knee replacement, mary jane cataracts, triple CABG 45-5 yrs ago, port in chest for dialysis Past Anesthesia/Blood Transfusion Reactions: No Reported Reaction Past Psychological History: No Psychological Hx Reported Smoking Status: Never smoker Past Alcohol Use History: None Reported Past Drug Use History: None Reported - Past Family History Daughter(s) Family Medical History: Cancer Additional Family Medical History / Comment(s): breast Father Family Medical History: Myocardial Infarction (RI) Additional Family Medical History / Comment(s): Father of a RI in his 60s. Mother Additional Family Medical History / Comment(s): Mother had heart disease General Exam Limitations: no limitations General appearance: alert, in no apparent distress Head exam: Present: atraumatic, normocephalic, normal inspection Eye exam: Present: normal appearance, PERRL, EOMI. Absent: scleral icterus, conjunctival injection, periorbital swelling ENT exam: Present: normal exam, normal oropharynx, mucous membranes moist Neck exam: Present: normal inspection, full ROM. Absent: tenderness, meningismus, lymphadenopathy Respiratory exam: Present: normal lung sounds bilaterally. Absent: respiratory distress, wheezes, rales, rhonchi, stridor Cardiovascular Exam: Present: regular rate, normal rhythm, normal heart sounds. Absent: systolic murmur, diastolic murmur, rubs, gallop, clicks Extremities exam: Present: other (Left foot there is dry gangrenous second digits with surrounding erythema of the dorsal aspect of the foot extending into the lower leg) Course Vital Signs 05/10/21 05/10/21 05/10/21 09:28 10:59 11:00 Temperature 97.1 F L Pulse Rate 72 87 Respiratory 18 18 12 Rate Blood Pressure 141/66 105/55 O2 Sat by Pulse 95 100 Oximetry Medical Decision Making - Medical Decision Making 76-year-old presented for infection to her foot. Patient has has gangrenous digit which seems to be removed per vascular surgeon patient will be started on broad-spectrum antibiotics will be admitted to Dr. hutton with consult to vascular surgery and nephrology for dialysis - Lab Data Result diagrams: 05/10/21 10:30 05/10/21 10:30 Lab Results 05/10/21 05/10/21 05/10/21 Range/Units 10:30 10:30 10:30 WBC 17.5 H (3.8-10.6) k/uL RBC 3.34 L (3.80-5.40) m/uL Hgb 10.1 L (11.4-16.0) gm/dL Hct 31.7 L (34.0-46.0) % MCV 94.9 (80.0-100.0) fL MCH 30.4 (25.0-35.0) pg MCHC 32.0 (31.0-37.0) g/dL RDW 14.5 (11.5-15.5) % Plt Count 303 (150-450) k/uL MPV 7.2 Neutrophils % 90 % Lymphocytes % 4 % Monocytes % 4 % Eosinophils % 1 % Basophils % 0 % Neutrophils # 15.7 H (1.3-7.7) k/uL Lymphocytes # 0.7 L (1.0-4.8) k/uL Monocytes # 0.7 (0-1.0) k/uL Eosinophils # 0.1 (0-0.7) k/uL Basophils # 0.0 (0-0.2) k/uL Hypochromasia Slight PT 10.8 (9.0-12.0) sec INR 1.0 (<1.2) APTT 27.5 (22.0-30.0) sec Sodium 132 L (137-145) mmol/L Potassium 4.4 (3.5-5.1) mmol/L Chloride 89 L (98-107) mmol/L Carbon Dioxide 27 (22-30) mmol/L Anion Gap 16 mmol/L BUN 50 H (7-17) mg/dL Creatinine 7.68 H* (0.52-1.04) mg/dL Est GFR (CKD-EPI)AfAm 5 (>60 ml/min/1.73 sqM) Est GFR (CKD-EPI)NonAf 5 (>60 ml/min/1.73 sqM) Glucose 67 L (74-99) mg/dL POC Glucose (mg/dL) (75-99) mg/dL POC Glu Vegetable Cook ID Calcium 8.9 (8.4-10.2) mg/dL Phosphorus 6.1 H (2.5-4.5) mg/dL Magnesium 1.9 (1.6-2.3) mg/dL Total Bilirubin 0.7 (0.2-1.3) mg/dL AST 47 H (14-36) U/L ALT 25 (4-34) U/L Alkaline Phosphatase 167 H (38-126) U/L Total Protein 6.7 (6.3-8.2) g/dL Albumin 3.5 (3.5-5.0) g/dL 05/10/21 Range/Units 11:37 WBC (3.8-10.6) k/uL RBC (3.80-5.40) m/uL Hgb (11.4-16.0) gm/dL Hct (34.0-46.0) % MCV (80.0-100.0) fL MCH (25.0-35.0) pg MCHC (31.0-37.0) g/dL RDW (11.5-15.5) % Plt Count (150-450) k/uL MPV Neutrophils % % Lymphocytes % % Monocytes % % Eosinophils % % Basophils % % Neutrophils # (1.3-7.7) k/uL Lymphocytes # (1.0-4.8) k/uL Monocytes # (0-1.0) k/uL Eosinophils # (0-0.7) k/uL Basophils # (0-0.2) k/uL Hypochromasia PT (9.0-12.0) sec INR (<1.2) APTT (22.0-30.0) sec Sodium (137-145) mmol/L Potassium (3.5-5.1) mmol/L Chloride (98-107) mmol/L Carbon Dioxide (22-30) mmol/L Anion Gap mmol/L BUN (7-17) mg/dL Creatinine (0.52-1.04) mg/dL Est GFR (CKD-EPI)AfAm (>60 ml/min/1.73 sqM) Est GFR (CKD-EPI)NonAf (>60 ml/min/1.73 sqM) Glucose (74-99) mg/dL POC Glucose (mg/dL) 97 (75-99) mg/dL POC Glu Vegetable Cook ID Elle Torres Calcium (8.4-10.2) mg/dL Phosphorus (2.5-4.5) mg/dL Magnesium (1.6-2.3) mg/dL Total Bilirubin (0.2-1.3) mg/dL AST (14-36) U/L ALT (4-34) U/L Alkaline Phosphatase (38-126) U/L Total Protein (6.3-8.2) g/dL Albumin (3.5-5.0) g/dL Disposition Clinical Impression: Gangrenous toe, Diabetic foot infection, Cellulitis of left lower leg Disposition: ADMITTED IP TO THIS [facility] Condition: Fair Referrals: Luis Lira MD [Primary Care Provider] - 1-2 days
[2021-05-10] MEDS ORDERED: NALOXONE 0.4 MG/ML 1 ML VIAL IV PRN (11:50)
[2021-05-10] MEDS ORDERED: ONDANSETRON 4 MG/2 ML VIAL IVP PRN (11:50)
[2021-05-10] MEDS ORDERED: ACETAMINOPHEN TAB 325 MG TAB PO PRN ×2 (11:50→18:01)
[2021-05-10 12:08] LABS: C Reactive Protein 35.2 mg/dL (<1.0)
[2021-05-10] MEDS ORDERED: HYDROmorphone 0.5 MG/0.5 ML SYRINGE IVP STA (12:29)
--- NOTE | 2021-05-10 14:43 | P.GSCN ---
History of Present Illness Consult date: 05/10/21 Reason for Consult: Gangrene left second toe Requesting physician: Luis Lira History of present illness: This is a 76-year-old female who was sent to the emergency department after seeing Dr. Nicolas in the office today out of concerns for gangrene left foot second toe. Has a past medical history including [place] 5 peripheral arterial disease, non-healing left second toe wound, end-stage renal disease, coronary artery disease, diabetes mellitus, hypertension and hyperlipidemia. Patient states that she overall has not been feeling well, denied any fevers or chills. Denies any chest pain or shortness of breath. She is due for dialysis today. WBCs 17.5 hemoglobin 10.7 platelet count 303,000 INR 1.0 sodium 132 potassium 4.4, albumin 58 creatinine 7.68 CRP 35. X-ray of left foot stayed soft tissue swelling, bone scan may be of benefit. X-ray left toes state suggestive for acute osteomyelitis middle and distal phalanx second digit. Soft tissue swelling third digit soft tissue changes between the second and third digits Review of Systems A 14 point review of systems was completed and all pertinent positives and negatives as stated in HPI Past Medical History Past Medical History: Coronary Artery Disease (CAD), Cancer, CVA/TIA, Diabetes Mellitus, Hyperlipidemia, Hypertension, Myocardial Infarction ([place]), Osteoarthritis (OA), Renal Disease, Sleep Apnea/CPAP/BIPAP, Thyroid Disorder, Vascular Disorder Additional Past Medical History / Comment(s): IDDM type II, bilateral lower leg/feet neuropathy, ESRD with hemodialysis, OVD.K 2nd toe ulcer/now necrotic, 01/2020 CVA with memory and balance issues, [place], L breast cancer with lumpectomy/radiation, ANSLEY without device, chronic generalized pain, chronic diarrhea, incontinence at times. Last Myocardial Infarction Date:: unknown History of Any Multi-Drug Resistant Organisms: MRSA Year Discovered:: 2018 MDRO Source:: face Past Surgical History: Breast Surgery, Cholecystectomy, Coronary Bypass/CABG, Hysterectomy, Joint Replacement Additional Past Surgical History / Comment(s): 03/22/21 abdominal aortagram, left breast lumpectomy, mary jane knee replacement, mary jane cataracts, triple CABG 4-5 yrs ago, port in chest for dialysis, R side fistula Past Anesthesia/Blood Transfusion Reactions: No Reported Reaction Smoking Status: Never smoker - Past Family History Daughter(s) Family Medical History: Cancer Additional Family Medical History / Comment(s): breast Father Family Medical History: Myocardial Infarction ([place]) Additional Family Medical History / Comment(s): Father of a [place] in his 60s. Mother Family Medical History: Coronary Artery Disease (CAD) Additional Family Medical History / Comment(s): Mother had heart disease Medications and Allergies Home Medications Medication Instructions Recorded Confirmed Type Acetaminophen [Tylenol] 650 mg PO Q4H PRN 01/11/21 05/10/21 History Aspirin [Adult Low Dose Aspirin EC] 81 mg PO DAILY 01/11/21 05/10/21 History Clopidogrel [Plavix] 75 mg PO DAILY 01/11/21 05/10/21 History Diphenoxylate HCl/Atropine 1 tab PO BID PRN 01/11/21 05/10/21 History [Lomotil 2.5-0.025 mg Tablet] Docusate [Colace] 100 mg PO DAILY PRN 01/11/21 05/10/21 History Insulin Aspart [NovoLOG Flexpen] See Protocol SQ ACHS PRN 01/11/21 05/10/21 History Insulin Degludec [Tresiba] 16 units SQ DAILY 01/11/21 05/10/21 History Levothyroxine Sodium [Synthroid] 75 mcg PO DAILY 01/11/21 05/10/21 History Metoprolol Tartrate [Lopressor] 50 mg PO BID 01/11/21 05/10/21 History Nitroglycerin 0.4 mg SL Q5M PRN 01/11/21 05/10/21 History Ondansetron [Zofran] 4 mg PO DAILY PRN 01/11/21 05/10/21 History Pantoprazole [Protonix] 40 mg PO DAILY 01/11/21 05/10/21 History Prochlorperazine [Compazine] 10 mg PO Q8H PRN 01/11/21 05/10/21 History Rivastigmine 4.6MG/24Hr Patch 1 patch TRANSDERM Q24HR 01/11/21 05/10/21 History [Exelon 4.6MG/24Hr Patch] Rosuvastatin [Crestor] 10 mg PO HS 01/11/21 05/10/21 History Triphrocaps 1 cap PO HS 01/11/21 05/10/21 History amLODIPine [Norvasc] 2.5 mg PO BID 01/11/21 05/10/21 History Acetaminophen-Codeine 300-30mg 1 tab PO Q6H PRN 05/10/21 05/10/21 History [Tylenol w/codeine #3] Lidocaine-Prilocaine Cream [Emla 1 applic TOPICAL MOWEFR PRN 05/10/21 05/10/21 History Cream 2.5%/2.5%] Sevelamer [Renvela] 1,600 mg PO TID-W/MEALS 05/10/21 05/10/21 History Allergies Allergy/AdvReac Type Severity Reaction Status Date / Time Iodinated Contrast Media Allergy Severe Anaphylaxis Verified 05/10/21 12:28 latex Allergy Itching Verified 05/10/21 12:28 Surgical - Exam Vital Signs Temp Pulse Resp BP Pulse Ox 97.1 F L 72 18 141/66 95 05/10/21 09:28 05/10/21 09:28 05/10/21 09:28 05/10/21 09:28 05/10/21 09:28 General appearance: The patient is alert, oriented, appears in no acute distress. HET: Head is normocephalic and atraumatic. Pupils are equal and reactive. Neck: Supple without lymphadenopathy. Trachea midline. No audible carotid bruit. Heart: S1 S2. Regular rate and rhythm. Lungs: Equal air entry and expansion. Abdomen: Soft, nontender, nondistended. Extremities: Normal skin color and turgor. Erythema to the left foot with swelling, gangrenous left second toe. Neurological: No focal deficits. Alert and oriented 3 Results - Labs 05/10/21 10:30 05/10/21 10:30 Abnormal Lab Results - Last 24 Hours (Table) 05/10/21 05/10/21 Range/Units 10:30 10:30 WBC 17.5 H (3.8-10.6) k/uL RBC 3.34 L (3.80-5.40) m/uL Hgb 10.1 L (11.4-16.0) gm/dL Hct 31.7 L (34.0-46.0) % Neutrophils # 15.7 H (1.3-7.7) k/uL Lymphocytes # 0.7 L (1.0-4.8) k/uL Sodium 132 L (137-145) mmol/L Chloride 89 L (98-107) mmol/L BUN 50 H (7-17) mg/dL Creatinine 7.68 H* (0.52-1.04) mg/dL Glucose 67 L (74-99) mg/dL Phosphorus 6.1 H (2.5-4.5) mg/dL AST 47 H (14-36) U/L Alkaline Phosphatase 167 H (38-126) U/L C-Reactive Protein 35.2 H (<1.0) mg/dL Diabetes panel 05/10/21 Range/Units 10:30 Sodium 132 L (137-145) mmol/L Potassium 4.4 (3.5-5.1) mmol/L Chloride 89 L (98-107) mmol/L Carbon Dioxide 27 (22-30) mmol/L BUN 50 H (7-17) mg/dL Creatinine 7.68 H* (0.52-1.04) mg/dL Glucose 67 L (74-99) mg/dL Calcium 8.9 (8.4-10.2) mg/dL AST 47 H (14-36) U/L ALT 25 (4-34) U/L Alkaline Phosphatase 167 H (38-126) U/L Total Protein 6.7 (6.3-8.2) g/dL Albumin 3.5 (3.5-5.0) g/dL Calcium panel 05/10/21 Range/Units 10:30 Calcium 8.9 (8.4-10.2) mg/dL Phosphorus 6.1 H (2.5-4.5) mg/dL Albumin 3.5 (3.5-5.0) g/dL Pituitary panel 05/10/21 Range/Units 10:30 Sodium 132 L (137-145) mmol/L Potassium 4.4 (3.5-5.1) mmol/L Chloride 89 L (98-107) mmol/L Carbon Dioxide 27 (22-30) mmol/L BUN 50 H (7-17) mg/dL Creatinine 7.68 H* (0.52-1.04) mg/dL Glucose 67 L (74-99) mg/dL Calcium 8.9 (8.4-10.2) mg/dL Adrenal panel 05/10/21 Range/Units 10:30 Sodium 132 L (137-145) mmol/L Potassium 4.4 (3.5-5.1) mmol/L Chloride 89 L (98-107) mmol/L Carbon Dioxide 27 (22-30) mmol/L BUN 50 H (7-17) mg/dL Creatinine 7.68 H* (0.52-1.04) mg/dL Glucose 67 L (74-99) mg/dL Calcium 8.9 (8.4-10.2) mg/dL Total Bilirubin 0.7 (0.2-1.3) mg/dL AST 47 H (14-36) U/L ALT 25 (4-34) U/L Alkaline Phosphatase 167 H (38-126) U/L Total Protein 6.7 (6.3-8.2) g/dL Albumin 3.5 (3.5-5.0) g/dL - Imaging Comments: X-ray of left foot stayed soft tissue swelling, bone scan may be of benefit. X-ray left toes state suggestive for acute osteomyelitis middle and distal phalanx second digit. Soft tissue swelling third digit soft tissue changes between the second and third digits Assessment and Plan Assessment: 1. Gangrene left foot second toe 2. Acute osteomyelitis left foot second toe 3. [place] 5 peripheral arterial disease 4. Diabetes mellitus 5. End-stage renal disease on hemodialysis 6. Coronary artery disease 7. COPD 8. Hypertension, hyperlipidemia Plan: 1. Continue IV antibiotics per recommendation from medicine 2. Hemodialysis per nephrology, patient is due today please try to have hemodialysis today or early tomorrow morning before her scheduled procedure 3. Okay for renal diet, nothing by mouth after midnight 4. Hold Plavix 5. Patient scheduled for left second toe amputation tomorrow Thank you for this consultation, we will continue to follow. The impression and plan of care has been dictated as directed. Dr. Nicolas I performed a history and examination of this patient, discussed the same with the dictator. I agree with the dictator's note ,documented as a scribe. Any additional findings or plans will be noted.
[2021-05-10] MEDS ORDERED: DOCUSATE 100 MG CAP PO PRN (18:01)
[2021-05-10] MEDS ORDERED: NITROGLYCERIN SL TABS 0.4 MG TAB SUBLINGUAL PRN (18:01)
[2021-05-10] MEDS ORDERED: PROCHLORPERAZINE 10 MG TAB PO PRN (18:01)
[2021-05-10] MEDS ORDERED: DIPHENOX-ATROP 2.5-0.025 MG 1 EACH TAB PO PRN (18:01)
[2021-05-10] MEDS ORDERED: ONDANSETRON 4 MG TAB PO PRN (18:01)
[2021-05-10 20:23] LABS: Glucose,Whole Blood 90 mg/dL (75-99)
[2021-05-10] MEDS: amLODIPine 2.5 MG TAB PO SCH (21:37)
[2021-05-10] MEDS: METOPROLOL TARTRATE 50 MG TAB PO SCH (21:37)
[2021-05-10] MEDS: ATORVASTATIN 20 MG TAB PO SCH (21:37)
[2021-05-10] MEDS: FOLIC ACID-VIT B COMPLEX-VIT C 1 CAP PO SCH (21:37)
[2021-05-11] MEDS: Acetaminophen-Codeine 300-30mg TAB PO PRN ×2 (05:56→17:04)
[2021-05-11] MEDS: LEVOTHYROXINE 75 MCG TAB PO SCH (05:56)
[2021-05-11 07:06] LABS: Glucose,Whole Blood 84 mg/dL (75-99)
--- NOTE | 2021-05-11 07:41 | P.HPIM ---
History of Present Illness H&P Date: 05/10/21 HISTORY OF PRESENT ILLNESS This is a 76-year-old female one of my office patient with past medical history of end-stage renal disease, CVA, coronary artery disease,, diabetes mellitus type 2 insulin requiring, hypertension, hyperlipidemia, hypothyroidism, peripheral vascular disease, obstructive sleep apnea without CPAP, history of breast cancer status post radiation. Patient has recently been transitioned to HD and Dr. Nicolas or [place] 01/12/2021. Patient States That She Is Normally Saturday Dialysis and Denies Missing Any Recent Appointments. She Has a Left-Sided Port in Place and Also a Right-Sided Fistula. Patient presented with complaints of wound to the left second toe and redness to the left lower extremity been going on for extended period of time. She is established with the wound healing Center and recently on Bactrim. Patient was hospitalized 10 days ago for worsening gangrenous change of the left second toe with worsening infection in circulation. Was treated and referred to the Wound Center and vascular. Her symptoms become much worse. Patient was seen Dr. Nicolas today and found to have much worsening gangrenous change in the toe compared to last admission. White blood cell was 17 500 x-ray of the toe suggested of osteomyelitis in the middle and the distal phalanx soft tissue swelling of the third digit soft tissue change between the second and third was followed as well. The current finding patient was sent to the hospital was started on IV antibiotic at this point see infectious disease patient will be going for amputation with the vascular service over the next day or 2. REVIEW OF SYSTEMS Constitutional: No fever, no chills, no night sweats. No weight change. No weakness, fatigue or lethargy. No daytime sleepiness. EENT: No headache. No blurred vision or double vision, no loss of vision. No loss of Hearing, no ringing in the ears, no dizziness. No nasal drainage or con gestion. No epistaxis. No sore throat. Lungs: No shortness of breath, cough, no sputum production. No wheezing. Cardiovascular: No chest pain, no lower extremity edema. No palpitations. No paroxysmal nocturnal dyspnea. No orthopnea. No lightheadedness or dizziness. No syncopal episodes. Abdominal: No abdominal pain. No nausea, vomiting. No diarrhea. No constipation. No bloody or tarry stools. No loss of appetite. Genitourinary: No dysuria, increased frequency, urgency. No urinary retention. Musculoskeletal: No myalgias. No muscle weakness, no gait dysfunction, no frequent falls. No back pain. No neck pain. Integumentary: Reported left toe wounds, no lesions. No rash or pruritus. No unusual bruising. No change in hair or nails. Neurologic: No aphasia. No facial droop. No change in mentation. No head injury. No headache. No paralysis. No paresthesia. Psychiatric: No depression. No anxiety. No mood swings. Endocrine: No abnormal blood sugars. No weight change. No excessive sweating or thirst. No cold intolerance. SOCIAL HISTORY Patient is a lifelong nonsmoker, no alcohol abuse, no marijuana or illicit drug use. Patient is retired schoolteacher. She lives at home with her . He drives her to dialysis and is the primary caregiver. Patient relates short-term memory deficits and stroke 1 year ago. FAMILY HISTORY Mother at age 90 from old age with history of diabetes. Father at age 70 with history of diabetes. Patient has 2 sisters that she does not know their medical history. She has 1 brother that was adopted. Patient has 2 daughters with no major medical problems. PHYSICAL EXAMINATION Gen: This is a 76-year-old female. Patient is resting in the ER stretcher and appears to be comfortable and in no acute distress. HEENT: Head is atraumatic, normocephalic. Pupils equal, round. Sclerae is anicteric. NECK: Supple. No JVD. No lymphadenopathy. No thyromegaly. LUNGS: Clear to auscultation. No wheezes or rhonchi. No intercostal retractio ns. HEART: Regular rate and rhythm. No murmur. ABDOMEN: Soft. Bowel sounds are present. No masses. No tenderness. EXTREMITIES: No pedal edema. No calf tenderness. Necrotic tissue to the left second toe. NEUROLOGICAL: Patient is awake, alert and oriented x3. Cranial nerves 2 through 12 are grossly intact. ASSESSMENT AND PLAN 1. Acute osteomyelitis of the left second toe with gangrenous change: Patient will require probably intervention with amputation will continue antibiotic for now consult vascular and patient will be clear for surgery in the next 24 hours. 2. End-stage renal disease on hemodialysis Saturday. Consult with nephrology 3. Diabetes mellitus type 2 insulin requiring. Patient will be resumed on home medications, NovoLog scale before meals and at bedtime, hemoglobin A1c 7.6. 4. Coronary artery disease: Has been seen cardiology regularly no chest pain or angina at this point. 5. History of CVA with short-term memory deficit. No other major residual. 6. [place] 5 peripheral arterial disease: Has been seen vascular regular basis still on dual antiplatelet agent and aspirin. 7. Hypertension: Continue patient on amlodipine 5 mg twice a day along with metoprolol titrate 50 mg twice a day. 8. Hyperlipidemia: Still on atorvastatin 20 mg daily. 9. Hypothyroidism: Remain on levothyroxine 75 g a day. 10. Peripheral vascular disease. Continue Plavix. 11. History of obstructive sleep apnea not utilizing CPAP. 12. History of breast cancer status post radiation, stable. 13. DVT prophylaxis. Heparin subcu. 14. GI prophylaxis. Protonix. Patient will be admitted to the hospital for a minimum of 2 night stay. Past Medical History Past Medical History: Coronary Artery Disease (CAD), Cancer, CVA/TIA, Diabetes Mellitus, Hyperlipidemia, Hypertension, Myocardial Infarction (MS), Osteoarthritis (OA), Renal Disease, Sleep Apnea/CPAP/BIPAP, Thyroid Disorder, V ascular Disorder Additional Past Medical History / Comment(s): IDDM type II, bilateral lower leg/feet neuropathy, ESRD with hemodialysis, OVD.K 2nd toe ulcer/now necrotic, 01/2020 CVA with memory and balance issues, FALLS, L breast cancer with lumpectomy/radiation, ANSLEY without device, chronic generalized pain, chronic diarrhea, incontinence at times. Last Myocardial Infarction Date:: unknown History of Any Multi-Drug Resistant Organisms: MRSA Date of last positivie culture/infection: 2017 MDRO Source:: face Past Surgical History: Breast Surgery, Cholecystectomy, Coronary Bypass/CABG, Hysterectomy, Joint Replacement Additional Past Surgical History / Comment(s): 03/22/21 abdominal aortagram, left breast lumpectomy, mary jane knee replacement, mary jane cataracts, triple CABG 4-5 yrs ago, port in chest for dialysis, R side fistula Past Anesthesia/Blood Transfusion Reactions: No Reported Reaction Smoking Status: Never smoker - Past Family History Daughter(s) Family Medical History: Cancer Additional Family Medical History / Comment(s): breast Father Family Medical History: Myocardial Infarction (MS) Additional Family Medical History / Comment(s): Father of a MS in his 60s. Mother Family Medical History: Coronary Artery Disease (CAD) Additional Family Medical History / Comment(s): Mother had heart disease Medications and Allergies Home Medications Medication Instructions Recorded Confirmed Type Acetaminophen [Tylenol] 650 mg PO Q4H PRN 01/11/21 05/10/21 History Aspirin [Adult Low Dose Aspirin EC] 81 mg PO DAILY 01/11/21 05/10/21 History Clopidogrel [Plavix] 75 mg PO DAILY 01/11/21 05/10/21 History Diphenoxylate HCl/Atropine 1 tab PO BID PRN 01/11/21 05/10/21 History [Lomotil 2.5-0.025 mg Tablet] Docusate [Colace] 100 mg PO DAILY PRN 01/11/21 05/10/21 History Insulin Aspart [NovoLOG Flexpen] See Protocol SQ ACHS PRN 01/11/21 05/10/21 History Insulin Degludec [Tresiba] 16 units SQ DAILY 01/11/21 05/10/21 History Levothyroxine Sodium [Synthroid] 75 mcg PO DAILY 01/11/21 05/10/21 History Metoprolol Tartrate [Lopressor] 50 mg PO BID 01/11/21 05/10/21 History Nitroglycerin 0.4 mg SL Q5M PRN 01/11/21 05/10/21 History Ondansetron [Zofran] 4 mg PO DAILY PRN 01/11/21 05/10/21 History Pantoprazole [Protonix] 40 mg PO DAILY 01/11/21 05/10/21 History Prochlorperazine [Compazine] 10 mg PO Q8H PRN 01/11/21 05/10/21 History Rivastigmine 4.6MG/24Hr Patch 1 patch TRANSDERM Q24HR 01/11/21 05/10/21 History [Exelon 4.6MG/24Hr Patch] Rosuvastatin [Crestor] 10 mg PO HS 01/11/21 05/10/21 History Triphrocaps 1 cap PO HS 01/11/21 05/10/21 History amLODIPine [Norvasc] 2.5 mg PO BID 01/11/21 05/10/21 History Acetaminophen-Codeine 300-30mg 1 tab PO Q6H PRN 05/10/21 05/10/21 History [Tylenol w/codeine #3] Lidocaine-Prilocaine Cream [Emla 1 applic TOPICAL MOWEFR PRN 05/10/21 05/10/21 History Cream 2.5%/2.5%] Sevelamer [Renvela] 1,600 mg PO TID-W/MEALS 05/10/21 05/10/21 History Allergies Allergy/AdvReac Type Severity Reaction Status Date / Time Iodinated Contrast Media Allergy Severe Anaphylaxis Verified 05/10/21 12:28 latex Allergy Itching Verified 05/10/21 12:28 Physical Exam Vitals: Vital Signs Temp Pulse Resp BP Pulse Ox 05/10/21 17:00 75 18 105/60 96 05/10/21 13:04 65 18 115/55 97 05/10/21 12:00 88 16 122/60 98 05/10/21 11:00 12 05/10/21 10:59 87 18 105/55 100 05/10/21 09:28 97.1 F L 72 18 141/66 95 Intake and Output 05/10/21 05/10/21 05/10/21 06:59 14:59 22:59 Other: Weight 83.007 kg Results CBC & Chem 7: 05/10/21 10:30 05/10/21 10:30 Labs: Abnormal Lab Results - Last 24 Hours (Table) 05/10/21 05/10/21 Range/Units 10:30 10:30 WBC 17.5 H (3.8-10.6) k/uL RBC 3.34 L (3.80-5.40) m/uL Hgb 10.1 L (11.4-16.0) gm/dL Hct 31.7 L (34.0-46.0) % Neutrophils # 15.7 H (1.3-7.7) k/uL Lymphocytes # 0.7 L (1.0-4.8) k/uL Sodium 132 L (137-145) mmol/L Chloride 89 L (98-107) mmol/L BUN 50 H (7-17) mg/dL Creatinine 7.68 H* (0.52-1.04) mg/dL Glucose 67 L (74-99) mg/dL Phosphorus 6.1 H (2.5-4.5) mg/dL AST 47 H (14-36) U/L Alkaline Phosphatase 167 H (38-126) U/L C-Reactive Protein 35.2 H (<1.0) mg/dL Thrombosis Risk Factor Assmnt - Choose All That Apply Any of the Below Risk Factors Present?: Yes Each Factor Represents 1 point: Minor surgery planned, Obesity (BMI >25) Other Risk Factors: Yes Each Risk Factor Represents 2 Points: Malignancy Each Risk Factor Represents 3 Points: Age 75 years or older Other congenital or acquired thrombophilia - If yes, enter type in comment: No Thrombosis Risk Factor Assessment Total Risk Factor Score: 7 Thrombosis Risk Factor Assessment Level: High Risk
[2021-05-11] MEDS: SEVELAMER 800 MG TAB PO SCH ×3 (08:40→17:04)
[2021-05-11] MEDS: INSULIN DETEMIR (LEVEMIR) 100 UNIT/ML SYR SQ SCH (08:40)
[2021-05-11] MEDS: PANTOPRAZOLE 40 MG TABLET PO SCH (08:41)
[2021-05-11] MEDS: METOPROLOL TARTRATE 50 MG TAB PO SCH ×2 (08:41→21:45)
[2021-05-11] MEDS: ASPIRIN 81 MG PO SCH (08:41)
[2021-05-11] MEDS: amLODIPine 2.5 MG TAB PO SCH ×2 (08:41→21:45)
[2021-05-11] MEDS ORDERED: CLOPIDOGREL 75 MG TAB PO SCH (09:00)
[2021-05-11] MEDS ORDERED: VANCOMYCIN 1,500 MG in SODIUM CHLORIDE 0.9% 250 ML IVPB ONE (09:00)
[2021-05-11] MEDS: MIDODRINE 5 MG TAB PO PRN (09:02)
[2021-05-11] MEDS: DEXTROSE 5% IN WATER 1,000 ML IV SCH ×2 (09:19→15:27)
[2021-05-11] MEDS: RIVASTIGMINE 4.6MG/24HR PATCH TRANSDERM SCH (09:19)
[2021-05-11] MEDS: metroNIDAZOLE-NS PMX 500 MG in SALINE 1 100ML.BAG IVPB SCH ×2 (09:20→15:27)
--- NOTE | 2021-05-11 10:04 | P.PN ---
Subjective Progress Note Date: 05/11/21 HISTORY OF PRESENT ILLNESS This is a 76-year-old female one of my office patient with past medical history of end-stage renal disease, CVA, coronary artery disease,, diabetes mellitus type 2 insulin requiring, hypertension, hyperlipidemia, hypothyroidism, peripheral vascular disease, obstructive sleep apnea without CPAP, history of breast cancer status post radiation. Patient has recently been transitioned to HD and Dr. Nicolas or [place] 01/12/2021. Patient States That She Is Normally Saturday Dialysis and Denies Missing Any Recent Appointments. She Has a Left-Sided Port in Place and Also a Right-Sided Fistula. Patient presented with complaints of wound to the left second toe and redness to the left lower extremity been going on for extended period of time. She is established with the wound healing Center and recently on Bactrim. Patient was hospitalized 10 days ago for worsening gangrenous change of the left second toe with worsening infection in circulation. Was treated and referred to the Wound Center and vascular. Her symptoms become much worse. Patient was seen Dr. Nicolas today and found to have much worsening gangrenous change in the toe compared to last admission. White blood cell was 17 500 x-ray of the toe suggested of osteomyelitis in the middle and the distal phalanx soft tissue swelling of the third digit soft tissue change between the second and third was followed as well. The current finding patient was sent to the hospital was started on IV antibiotic at this point see infectious disease patient will be going for amputation with the vascular service over the next day or 2. 05/11: Patient was seen by vascular surgery with plan for amputation of the 2nd toe left foot today followed by lower extremity angiogram on Saturday. Patient continues to have significant pain in the left foot. She is scheduled for hemodialysis treatment today, normal days are Saturday and she missed yesterday. Patient has been afebrile, heart rate in the 60s and 70s, blood pressure 96/54, pulse ox 96% on 4 L nasal cannula. Her blood glucose running between 84 and 97. Parameters placed for amlodipine to hold if systolic blood pressure less than 120. Nephrology has added and midodrine 10 mg 3 times daily for hypotension. She is currently on IV antibiotics in form of vancomycin, Zosyn, Flagyl. REVIEW OF SYSTEMS Constitutional: No fever, no chills, no night sweats. No weight change. No weakness, fatigue or lethargy. No daytime sleepiness. EENT: No headache. No blurred vision or double vision, no loss of vision. No loss of Hearing, no ringing in the ears, no dizziness. No nasal drainage or congestion. No epistaxis. No sore throat. Lungs: No shortness of breath, cough, no sputum production. No wheezing. Cardiovascular: No chest pain, no lower extremity edema. No palpitations. No paroxysmal nocturnal dyspnea. No orthopnea. No lightheadedness or dizziness. No syncopal episodes. Abdominal: No abdominal pain. No nausea, vomiting. No diarrhea. No constipation. No bloody or tarry stools. No loss of appetite. Genitourinary: No dysuria, increased frequency, urgency. No urinary retention. Musculoskeletal: No myalgias. No muscle weakness, no gait dysfunction, no f requent falls. No back pain. No neck pain. Reports pain in the left foot. Integumentary: Reported left toe wounds, no lesions. No rash or pruritus. No unusual bruising. No change in hair or nails. Neurologic: No aphasia. No facial droop. No change in mentation. No head injury. No headache. No paralysis. No paresthesia. Psychiatric: No depression. No anxiety. No mood swings. Endocrine: Noted abnormal blood sugars. No weight change. No excessive sweating or thirst. No cold intolerance. PHYSICAL EXAMINATION Gen: This is a 76-year-old female. Patient is resting in the ER stretcher and appears to be comfortable and in no acute distress. HEENT: Head is atraumatic, normocephalic. Pupils equal, round. Sclerae is anicteric. NECK: Supple. No JVD. No lymphadenopathy. No thyromegaly. LUNGS: Clear to auscultation. No wheezes or rhonchi. No intercostal retractions. HEART: Regular rate and rhythm. No murmur. ABDOMEN: Soft. Bowel sounds are present. No masses. No tenderness. EXTREMITIES: No pedal edema. No calf tenderness. Necrotic tissue to the left second toe. NEUROLOGICAL: Patient is awake, alert and oriented x3. Cranial nerves 2 through 12 are grossly intact. ASSESSMENT AND PLAN 1. Acute osteomyelitis of the left second toe with gangrenous change. Patient is scheduled for amputation with vascular surgery today followed by angiogram tomorrow. Continue IV antibiotics the form of vancomycin, Zosyn, Flagyl. Consult with infectious disease. 2. End-stage renal disease on hemodialysis Saturday. Consult with nephrology 3. Diabetes mellitus type 2 insulin requiring. Patient will be resumed on home medications, NovoLog scale before meals and at bedtime, hemoglobin A1c 7.6. 4. Coronary artery disease: Has been seen cardiology regularly no chest pain or angina at this point. 5. History of CVA with short-term memory deficit. No other major residual. 6. [place] 5 peripheral arterial disease: Has been seen vascular regular basis still on dual antiplatelet agent and aspirin. 7. Hypertension: Continue patient on amlodipine 2.5 mg twice a day with parameters along with metoprolol titrate 50 mg twice a day. Midodrine 10 mg 3 times daily as needed added by nephrology. 8. Hyperlipidemia: Still on atorvastatin 20 mg daily. 9. Hypothyroidism: Remain on levothyroxine 75 g a day. 10. Peripheral vascular disease. Continue Plavix. 11. History of obstructive sleep apnea not utilizing CPAP. 12. History of breast cancer status post radiation, stable. 13. DVT prophylaxis. Heparin subcu. 14. GI prophylaxis. Protonix. DISCHARGE PLAN TBD Impression and plan of care have been directed as dictated by the signing physician. Chula Perdomo nurse practitioner acting as scribe for signing physician. Objective - Vital Signs Vital signs: Vital Signs Temp 98.0 F 05/11/21 08:00 Pulse 71 05/11/21 08:00 Resp 16 05/11/21 08:00 BP 96/54 05/11/21 08:00 Pulse Ox 96 05/11/21 08:00 Intake & Output 05/10/21 05/11/21 05/11/21 18:59 06:59 18:59 Weight 83.007 kg Other: Voiding Method External Catheter # Voids 1 0 - Labs CBC & Chem 7: 05/10/21 10:30 05/10/21 10:30 Labs: Abnormal Lab Results - Last 24 Hours (Table) 05/10/21 05/10/21 Range/Units 10:30 10:30 WBC 17.5 H (3.8-10.6) k/uL RBC 3.34 L (3.80-5.40) m/uL Hgb 10.1 L (11.4-16.0) gm/dL Hct 31.7 L (34.0-46.0) % Neutrophils # 15.7 H (1.3-7.7) k/uL Lymphocytes # 0.7 L (1.0-4.8) k/uL Sodium 132 L (137-145) mmol/L Chloride 89 L (98-107) mmol/L BUN 50 H (7-17) mg/dL Creatinine 7.68 H* (0.52-1.04) mg/dL Glucose 67 L (74-99) mg/dL Phosphorus 6.1 H (2.5-4.5) mg/dL AST 47 H (14-36) U/L Alkaline Phosphatase 167 H (38-126) U/L C-Reactive Protein 35.2 H (<1.0) mg/dL
[2021-05-11] MEDS ORDERED: MORPHINE SULFATE 2 MG/ML SYRINGE IVP STA (11:36)
[2021-05-11 11:48] LABS: Glucose,Whole Blood 86 mg/dL (75-99)
[2021-05-11] MEDS ORDERED: IV FLUID CONTINUATION 1,000 ML IV ONE (12:53)
[2021-05-11] MEDS ORDERED: IV FLUID CONTINUATION 250 ML IV ONE (12:54)
--- NOTE | 2021-05-11 13:03 | P.NPCON ---
History of Present Illness - Reason for Consult end stage renal disease - History of Present Illness Patient is a 76-year-old female with end-stage renal disease on hemodialysis on a Saturday schedule. She is admitted to the hospital with complaints of left foot pain. Patient has underlying peripheral vascular disease with necrotic left second toe. Patient is being followed by vascular surgery with plans for possible amputation. Patient was not dialyzed yesterday. This morning patient is seen on dialysis. She is tolerating her treatment well. She is complaining of pain in her left leg. No history of nausea vomiting abdominal pain or diarrhea No chest pains or shortness of breath. Review of Systems As per HPI Past Medical History Past Medical History: Coronary Artery Disease (CAD), Cancer, CVA/TIA, Diabetes Mellitus, Hyperlipidemia, Hypertension, Myocardial Infarction ([place]), Osteoarthritis (OA), Renal Disease, Sleep Apnea/CPAP/BIPAP, Thyroid Disorder, Vascular Disorder Additional Past Medical History / Comment(s): IDDM type II, bilateral lower leg/feet neuropathy, ESRD with hemodialysis, OVD.K 2nd toe ulcer/now necrotic, 01/2020 CVA with memory and balance issues, FALLS, L breast cancer with lumpectomy/radiation, ANSLEY without device, chronic generalized pain, chronic diarrhea, incontinence at times. Last Myocardial Infarction Date:: unknown History of Any Multi-Drug Resistant Organisms: MRSA Date of last positivie culture/infection: 2017 MDRO Source:: face Past Surgical History: Breast Surgery, Cholecystectomy, Coronary Bypass/CABG, Hysterectomy, Joint Replacement Additional Past Surgical History / Comment(s): 03/22/21 abdominal aortagram, left breast lumpectomy, mary jane knee replacement, mary jane cataracts, triple CABG 4-5 yrs ago, port in chest for dialysis, R side fistula Past Anesthesia/Blood Transfusion Reactions: No Reported Reaction Smoking Status: Never smoker - Past Family History Daughter(s) Family Medical History: Cancer Additional Family Medical History / Comment(s): breast Father Family Medical History: Myocardial Infarction ([place]) Additional Family Medical History / Comment(s): Father of a HI in his 60s. Mother Family Medical History: Coronary Artery Disease (CAD) Additional Family Medical History / Comment(s): Mother had heart disease Medications and Allergies Home Medications Medication Instructions Recorded Confirmed Type Acetaminophen [Tylenol] 650 mg PO Q4H PRN 01/11/21 05/10/21 History Aspirin [Adult Low Dose Aspirin EC] 81 mg PO DAILY 01/11/21 05/10/21 History Clopidogrel [Plavix] 75 mg PO DAILY 01/11/21 05/10/21 History Diphenoxylate HCl/Atropine 1 tab PO BID PRN 01/11/21 05/10/21 History [Lomotil 2.5-0.025 mg Tablet] Docusate [Colace] 100 mg PO DAILY PRN 01/11/21 05/10/21 History Insulin Aspart [NovoLOG Flexpen] See Protocol SQ ACHS PRN 01/11/21 05/10/21 History Insulin Degludec [Tresiba] 16 units SQ DAILY 01/11/21 05/10/21 History Levothyroxine Sodium [Synthroid] 75 mcg PO DAILY 01/11/21 05/10/21 History Metoprolol Tartrate [Lopressor] 50 mg PO BID 01/11/21 05/10/21 History Nitroglycerin 0.4 mg SL Q5M PRN 01/11/21 05/10/21 History Ondansetron [Zofran] 4 mg PO DAILY PRN 01/11/21 05/10/21 History Pantoprazole [Protonix] 40 mg PO DAILY 01/11/21 05/10/21 History Prochlorperazine [Compazine] 10 mg PO Q8H PRN 01/11/21 05/10/21 History Rivastigmine 4.6MG/24Hr Patch 1 patch TRANSDERM Q24HR 01/11/21 05/10/21 History [Exelon 4.6MG/24Hr Patch] Rosuvastatin [Crestor] 10 mg PO HS 01/11/21 05/10/21 History Triphrocaps 1 cap PO HS 01/11/21 05/10/21 History amLODIPine [Norvasc] 2.5 mg PO BID 01/11/21 05/10/21 History Acetaminophen-Codeine 300-30mg 1 tab PO Q6H PRN 05/10/21 05/10/21 History [Tylenol w/codeine #3] Lidocaine-Prilocaine Cream [Emla 1 applic TOPICAL MOWEFR PRN 05/10/21 05/10/21 History Cream 2.5%/2.5%] Sevelamer [Renvela] 1,600 mg PO TID-W/MEALS 05/10/21 05/10/21 History Allergies Allergy/AdvReac Type Severity Reaction Status Date / Time Iodinated Contrast Media Allergy Severe Anaphylaxis Verified 05/10/21 12:28 latex Allergy Itching Verified 05/10/21 12:28 Physical Exam Vitals: Vital Signs Temp Pulse Pulse Resp BP BP Pulse Ox 05/11/21 10:12 20 05/11/21 08:00 98.0 F 71 16 96/54 96 05/11/21 06:56 98.0 F 71 16 96/54 05/11/21 01:25 97.9 F 63 18 104/58 100 05/10/21 19:00 98.2 F 64 17 109/57 95 05/10/21 18:56 18 05/10/21 17:00 75 18 105/60 96 05/10/21 13:04 65 18 115/55 97 Intake and Output 05/10/21 05/11/21 05/11/21 22:59 06:59 14:59 Other: Voiding Method External Catheter External Catheter # Voids 1 0 Patient is awake, comfortable complaining of pain in the left leg Examination of the heart S1 and S2 Examination lungs bilateral breath sounds are heard Abdomen is soft nontender Examination lower extremity shows no evidence of edema. Chronic skin changes noted At edema noted of on the left foot with necrotic changes in the left second toe. ACUTE CARE OCCUPATIONAL THERAPIST exam grossly intact Results - Lab Results Most recent lab results Calcium 8.9 mg/dL (8.4-10.2) 05/10/21 10:30 Phosphorus 6.1 mg/dL (2.5-4.5) H 05/10/21 10:30 Magnesium 1.9 mg/dL (1.6-2.3) 05/10/21 10:30 05/10/21 10:30 05/10/21 10:30 Assessment and Plan Assessment: 1. End-stage renal disease on hemodialysis on a Saturday schedule 2. Cellulitis/acute osteomyelitis of the left second toe with gangrenous changes being followed by vascular surgery with plans for possible amputation 3. Type 2 diabetes maintained on insulin 4. CK D mineral bone disorder 5. Peripheral vascular disease 6. Coronary artery disease Plan: Hemodialysis today and then again in a.m. to maintain patient on her regular outpatient scheduled Minimal ultrafiltration today with dialysis Decrease IV fluids
[2021-05-11] MEDS ORDERED: DEXAMETHASONE SOD PHOSPHATE 4 MG/ML 1 ML VIAL IVP ONE (13:26)
[2021-05-11] MEDS ORDERED: ONDANSETRON 4 MG/2 ML VIAL IVP ONE (13:27)
[2021-05-11] MEDS ORDERED: DEXTROSE 5% IN WATER 50 ML BAG IVPB ONE (13:27)
[2021-05-11] MEDS ORDERED: PROPOFOL 10 MG/ML 20 ML VIAL IV ONE (13:29)
[2021-05-11] MEDS ORDERED: LIDOCAINE 1% INJ 10MG/ML (20 ML MDV) ONE (13:29)
[2021-05-11] MEDS ORDERED: fentaNYL (PF) 50 MCG/ML 2 ML AMP ONE (13:29)
[2021-05-11 13:33] LABS: Glucose,Whole Blood 114 mg/dL (75-99)
[2021-05-11 13:33] LABS: Glucose,Whole Blood 51 mg/dL (75-99)
[2021-05-11] MEDS ORDERED: LIDOCAINE 1% INJ 10MG/ML (20 ML MDV) SQ ONE (13:34)
[2021-05-11 13:36] VITALS: BMI 32.4
[2021-05-11] MEDS: LACTATED RINGERS 1,000 ML IV SCH (14:06)
--- NOTE | 2021-05-11 14:25 | P.OP ---
Date of Procedure: 05/11/21 Preoperative Diagnosis: Gangrene of the left second toe. Postoperative Diagnosis: Same Procedure(s) Performed: Amputation of the left second toe at the proximal phalangeal level. Implants: None. Anesthesia: local (With IV sedation.) Surgeon: Alireza Maria Estimated Blood Loss (ml): 0 Pathology: other (Amputated portion of left second toe.) Condition: stable Disposition: no change Indications for Procedure: Patient is a 76-year-old female with a long-standing history of diabetes mellitus as well as chronic kidney disease stage V who was seen in the office yesterday with gangrenous changes of her second toe removal of the left foot. Physical examination revealed femoral pulse to be intact but the popliteal and pedal pulses are absent. Because of the gangrene and patient is offered amputation. Description of Procedure: Patient was brought to the operating room and placed in the supine position. The left foot was sterilely prepped and draped in usual manner. Patient did receive intravenously administered sedation delivered by the department anesthesiology. 1% Xylocaine was utilized for local anesthesia and a digital block manner. A racquet-type incision was made and carried down through the subcu change tissues. Minimal, if any bleeding was encountered. Soft tissues were divided and the bone was transected with a bone cutter. [place] was utilized to remove the more proximal portion of the proximal phalanx. Cultures were obtained although no pus was noted. The wound was irrigated and wound was partially closed with 4-0 nylon suture. The remainder of the wound was packed with iodoform gauze. Proper dressings were applied. Patient tolerated the procedure well and was taken to the recovery area satisfactory and stable condition. Plan is for angiography tomorrow to help plan for revascularization. This was discussed with the patient's who was in full agreement. The patient's understands the patient is at significant risk for major amputation.
[2021-05-11 14:42] LABS: Glucose,Whole Blood 149 mg/dL (75-99)
[2021-05-11 15:48] LABS: African American GFR (CKD) 16 (>60 ml/min/1.73 sqM); Anion Gap 11 mmol/L; Blood Urea Nitrogen 18 mg/dL (7-17); Calcium 8.6 mg/dL (8.4-10.2); Carbon Dioxide 27 mmol/L (22-30); Chloride 101 mmol/L (98-107); Glucose 86 mg/dL (74-99); Non-African American GFR(CKD) 14 (>60 ml/min/1.73 sqM); Potassium 3.6 mmol/L (3.5-5.1); Sodium 139 mmol/L (137-145)
[2021-05-11 16:34] LABS: Glucose,Whole Blood 145 mg/dL (75-99)
[2021-05-11 20:26] LABS: Glucose,Whole Blood 258 mg/dL (75-99)
[2021-05-11] MEDS ORDERED: predniSONE 50 MG TAB PO ONE (21:15)
[2021-05-11] MEDS: INSULIN ASPART (NovoLOG) 100 UNIT/ML VIAL SQ SCH (21:45)
[2021-05-11] MEDS: ATORVASTATIN 20 MG TAB PO SCH (21:45)
[2021-05-11] MEDS: FOLIC ACID-VIT B COMPLEX-VIT C 1 CAP PO SCH (21:48)
[2021-05-12] MEDS: metroNIDAZOLE-NS PMX 500 MG in SALINE 1 100ML.BAG IVPB SCH ×3 (01:06→19:09)
[2021-05-12] MEDS ORDERED: predniSONE 50 MG TAB PO ONE ×2 (03:15→09:15)
[2021-05-12 04:11] LABS: Glucose,Whole Blood 226 mg/dL (75-99)
--- NOTE | 2021-05-12 05:10 | P.EN ---
A- team: Indication: Confusion Arrived on Scene to find: Patient resting in bed comfortably with no active complaints. Oriented only to self. Denied focal weakness. Vital signs reviewed: 135/85, SpO2 96% on 2 L cannula, T 98.5F Patient seen and examined at bedside. General: [non toxic], [no distress], [appears at stated age] Derm: [warm], [dry] Head: [atraumatic], [normocephalic], [symmetric] Eyes: [EOMI], [no lid lag], [anicteric sclera] Mouth: [no lip lesion], [mucus membranes moist] Cardiovascular: [S1S2 reg], [no murmur], [positive posterior tibial pulse bilateral], Lungs: [CTA bilateral], [no rhonchi, no rales] , [no accessory muscle use] Abdominal: [soft], [ nontender to palpation], [no guarding], [no appreciable organomegaly] Ext: [no gross muscle atrophy], [no edema], [no contractures], left foot postoperative dressings in place Neuro: [ CN II-XI grossly intact], [no focal neuro deficits], strength 5 out of 5 throughout Psych: [Alert], oriented only to self Assessment: Altered mental status, suspected secondary to delirium Plan: Frequent reorientation Notified: Primary team notified by JULIA
[2021-05-12] MEDS: LEVOTHYROXINE 75 MCG TAB PO SCH (06:09)
[2021-05-12 06:55] LABS: Glucose,Whole Blood 221 mg/dL (75-99)
[2021-05-12 07:34] LABS: Basophils % (A) 0 %; Eosinophils % (A) 0 %; HCT 32.2 % (34.0-46.0); HGB 9.8 gm/dL (11.4-16.0); Hypochromasia Moderate; Lymphocytes # (A) 0.3 k/uL (1.0-4.8); Lymphocytes % (A) 1 %; MCH 30.2 pg (25.0-35.0); MCHC 30.5 g/dL (31.0-37.0); Mean Platelet Volume 7.8; Monocytes # (A) 0.8 k/uL (0-1.0); Monocytes % (A) 4 %; Neutrophils # (A) 19.8 k/uL (1.3-7.7); Neutrophils % (A) 94 %; Platelet Count 289 k/uL (150-450); RBC 3.25 m/uL (3.80-5.40); RDW 13.9 % (11.5-15.5)
[2021-05-12 08:18] LABS: African American GFR (CKD) 7 (>60 ml/min/1.73 sqM); Anion Gap 10 mmol/L; Blood Urea Nitrogen 34 mg/dL (7-17); Calcium 8.4 mg/dL (8.4-10.2); Carbon Dioxide 27 mmol/L (22-30); Chloride 97 mmol/L (98-107); Glucose 209 mg/dL (74-99); Non-African American GFR(CKD) 6 (>60 ml/min/1.73 sqM); Potassium 5.2 mmol/L (3.5-5.1); Sodium 134 mmol/L (137-145)
[2021-05-12] MEDS: INSULIN ASPART (NovoLOG) 100 UNIT/ML VIAL SQ SCH ×4 (08:22→21:07)
[2021-05-12] MEDS: SEVELAMER 800 MG TAB PO SCH ×3 (08:23→19:08)
[2021-05-12] MEDS: INSULIN DETEMIR (LEVEMIR) 100 UNIT/ML SYR SQ SCH (08:24)
[2021-05-12] MEDS: PANTOPRAZOLE 40 MG TABLET PO SCH (08:35)
[2021-05-12] MEDS: amLODIPine 2.5 MG TAB PO SCH ×2 (08:35→21:04)
[2021-05-12] MEDS: RIVASTIGMINE 4.6MG/24HR PATCH TRANSDERM SCH (08:35)
[2021-05-12] MEDS: METOPROLOL TARTRATE 50 MG TAB PO SCH ×2 (08:43→21:04)
[2021-05-12] MEDS ORDERED: diphenhydrAMINE 50 MG CAP PO ONE (09:15)
[2021-05-12] MEDS: ASPIRIN 81 MG PO SCH (10:23)
[2021-05-12] MEDS ORDERED: IV FLUID CONTINUATION 1,000 ML IV ONE (11:05)
--- NOTE | 2021-05-12 11:34 | CDI ---
Documentation Clarification Form Date: 05/12/2021 11:19:12 AM From: Dione Ordonez CCS, CCDS Admit Date: 05/10/2021 11:38:00 AM Patient Name: Arielle Thmoas Visit Number: [id number] Discharge Date: ATTENTION: The Clinical Documentation Specialists (CDI) and [facility] Coding Staff appreciate your assistance in clarifying documentation. Please respond to the clarification below the line at the bottom and electronically sign. The CDI & [facility] Coding staff will review the response and follow-up if needed. Please note: Queries are made part of the Legal Health Record. If you have any questions, please contact the author of this message via ITS. Dr. Luis Lira: The A Team was called on 05/12 per responding physician, Dr. Hawkins for Confusion. Assessment: Altered mental status, suspected second to delirium. The patient is POD 1 status post amputation of the left 2nd toe for Acute Cellulitis and Acute Osteomyelitis with necrosis requiring amputation. Additional clarification regarding the patient's confusion is requested. History/Risk Factors per the 05/10 H/P: ESRD on Hemodialysis, CVA, CAD status post CABG, Diabetes Mellitus Type II, Insulin requiring with PVD & Neuropathy, Hypertension, Hyperlipidemia, Hypothyroidism, ANSLEY and history of Breast Cancer status post Radiation. Clinical Indicators: Presented to the ED on 05/10 with infection of left foot 2nd digit, known diabetic, ESRD on hemodialysis. Admit with Gangrenous toe, Diabetic Foot Infection, Cellulitis of the Left Lower Leg. 05/10 VS: T 97.1, P 72, R 18, BP 141/66, PO 95 RA - 100 3Lnc, BMI: 32.4 05/12 VS: T 98.5, P 69, R 18, BP 136/77, 100/53; PO 96 2Lnc, 83 3Lnc 05/10 LAB: WBC 17.5, Hgb 10.1, Neut 15.7, Lymph 0.7, Na 132, BUN 50, Cr 7.68, Glucose 67, Phos 6.1, AST 47, Alk Phos 167, CRP 35.2 05/12 LAB: WBC 21.0, Hgb 9.8, Neut 19.8, Lymph 0.3, Na 134, K 5.2, Cl 97, BUN 34, Cr 5.86, Glucose [address] Brain or EEG, No Neurology Consult Treatment 05/10: Hypoglycemia Protocol, Insulin sl sc, Hemodialysis, Blood Cxs, IV Zosyn 100 mls @ 200 mls/hr x1, IV Morphine 4 mg x1, IV Zofran 4 mg x1, IV Vancomycin 250 mls @ 125 mls/hr x1, IV Dilaudid 0.2 mg x1 05/11 Amputation 2nd Digit Left Toe Please clarify the the following: [ xx ] Metabolic Encephalopathy [ ] Other Encephalopathy [ ] Other cause of Confusion and/or Delirium, please specify: [ ] Other, please specify: [ ] Unable to determine (Template Last Revised: April 2020) MTDD
--- NOTE | 2021-05-12 11:35 | P.PN ---
Subjective Progress Note Date: 05/12/21 HISTORY OF PRESENT ILLNESS This is a 76-year-old female one of my office patient with past medical history of end-stage renal disease, CVA, coronary artery disease,, diabetes mellitus type 2 insulin requiring, hypertension, hyperlipidemia, hypothyroidism, peripheral vascular disease, obstructive sleep apnea without CPAP, history of breast cancer status post radiation. Patient has recently been transitioned to HD and Dr. Nicolas or [place] 01/12/2021. Patient States That She Is Normally Saturday Dialysis and Denies Missing Any Recent Appointments. She Has a Left-Sided Port in Place and Also a Right-Sided Fistula. Patient presented with complaints of wound to the left second toe and redness to the left lower extremity been going on for extended period of time. She is established with the wound healing Center and recently on Bactrim. Patient was hospitalized 10 days ago for worsening gangrenous change of the left second toe with worsening infection in circulation. Was treated and referred to the Wound Center and vascular. Her symptoms become much worse. Patient was seen Dr. Nicolas today and found to have much worsening gangrenous change in the toe compared to last admission. White blood cell was 17 500 x-ray of the toe suggested of osteomyelitis in the middle and the distal phalanx soft tissue swelling of the third digit soft tissue change between the second and third was followed as well. The current finding patient was sent to the hospital was started on IV antibiotic at this point see infectious disease patient will be going for amputation with the vascular service over the next day or 2. 05/11: Patient was seen by vascular surgery with plan for amputation of the 2nd toe left foot today followed by lower extremity angiogram on Saturday. Patient continues to have significant pain in the left foot. She is scheduled for hemodialysis treatment today, normal days are Saturday and she missed yesterday. Patient has been afebrile, heart rate in the 60s and 70s, blood pressure 96/54, pulse ox 96% on 4 L nasal cannula. Her blood glucose running between 84 and 97. Parameters placed for amlodipine to hold if systolic blood pressure less than 120. Nephrology has added and midodrine 10 mg 3 times daily for hypotension. She is currently on IV antibiotics in form of vancomycin, Zosyn, Flagyl. 05/12: Yesterday, patient underwent imitation of left second toe at the proximal phalangeal level. Patient had event last night in which A-Team was called for confusion. Patient was oriented to self, no focal weakness. Plan was for frequent reorientation. Confusion thought to be related to medications and hospitalization. This morning, is at bedside. He is concerned about her confusion, consult added for neurology. Updated that she would be best served to go home to her own environment as soon as possible. He does have family issues and will not be oh to take her home until Saturday. Blood cultures are showing no growth at 24 hours 2, wound culture is in progress. manager performance has arranged for [facility] care services. REVIEW OF SYSTEMS Constitutional: No fever, no chills, no night sweats. No weight change. No weakness, fatigue or lethargy. No daytime sleepiness. EENT: No headache. No blurred vision or double vision, no loss of vision. No loss of Hearing, no ringing in the ears, no dizziness. No nasal drainage or congestion. No epistaxis. No sore throat. Lungs: No shortness of breath, cough, no sputum production. No wheezing. Cardiovascular: No chest pain, no lower extremity edema. No palpitations. No paroxysmal nocturnal dyspnea. No orthopnea. No lightheadedness or dizziness. No syncopal episodes. Abdominal: No abdominal pain. No nausea, vomiting. No diarrhea. No constipation. No bloody or tarry stools. No loss of appetite. Genitourinary: No dysuria, increased frequency, urgency. No urinary retention. Musculoskeletal: No myalgias. No muscle weakness, no gait dysfunction, no frequent falls. No back pain. No neck pain. Reports pain in the left foot. Integumentary: Reported left toe wounds, no lesions. No rash or pruritus. No unusual bruising. No change in hair or nails. Neurologic: No aphasia. No facial droop. Noted change in mentation. No head injury. No headache. No paralysis. No paresthesia. Psychiatric: No depression. No anxiety. No mood swings. Endocrine: Noted abnormal blood sugars. No weight change. No excessive sweating or thirst. No cold intolerance. PHYSICAL EXAMINATION Gen: This is a 76-year-old female. Patient is resting in the ER stretcher and appears to be comfortable and in no acute distress. HEENT: Head is atraumatic, normocephalic. Pupils equal, round. Sclerae is anicteric. NECK: Supple. No JVD. No lymphadenopathy. No thyromegaly. LUNGS: Clear to auscultation. No wheezes or rhonchi. No intercostal retractions. HEART: Regular rate and rhythm. No murmur. ABDOMEN: Soft. Bowel sounds are present. No masses. No tenderness. EXTREMITIES: No pedal edema. No calf tenderness. Necrotic tissue to the left second toe. NEUROLOGICAL: Patient is awake, alert and oriented x3. Cranial nerves 2 through 12 are grossly intact. ASSESSMENT AND PLAN 1. Acute osteomyelitis of the left second toe with gangrenous change. Status post amputation of left second toe 05/11. Patient is scheduled for angiogram today. Continue IV antibiotics the form of vancomycin, Zosyn, Flagyl. Consult with infectious disease. 2. End-stage renal disease on hemodialysis Saturday. Consult with nephrology 3. Diabetes mellitus type 2 insulin requiring. Patient will be resumed on home medications, NovoLog scale before meals and at bedtime, hemoglobin A1c 7.6. 4. Coronary artery disease: Has been seen cardiology regularly no chest pain or angina at this point. 5. History of CVA with short-term memory deficit. No other major residual. 6. [place] 5 peripheral arterial disease: Has been seen vascular regular basis still on dual antiplatelet agent and aspirin. 7. Hypertension: Continue patient on amlodipine 2.5 mg twice a day with parameters along with metoprolol titrate 50 mg twice a day. Midodrine 10 mg 3 times daily as needed added by nephrology. 8. Hyperlipidemia: Still on atorvastatin 20 mg daily. 9. Hypothyroidism: Remain on levothyroxine 75 g a day. 10. Peripheral vascular disease. Continue Plavix. 11. History of obstructive sleep apnea not utilizing CPAP. 12. History of breast cancer status post radiation, stable. 13. Acute delirium most likely secondary to hospitalization, medications, change in environment. Concern for possible underlying dementia. Reorientation, consult with neurology. 14. DVT prophylaxis. Heparin subcu. 15. GI prophylaxis. Protonix. DISCHARGE PLAN Home with [facility] on Saturday Impression and plan of care have been directed as dictated by the signing physician. Chula Perdomo nurse practitioner acting as scribe for signing physician. Objective - Vital Signs Vital signs: Vital Signs Temp 98.3 F 05/12/21 07:43 Pulse 69 05/12/21 07:43 Resp 17 05/12/21 07:43 BP 100/53 05/12/21 07:43 Pulse Ox 83 L 05/12/21 07:43 Intake & Output 05/11/21 05/12/21 05/12/21 18:59 06:59 18:59 Intake Total 770 Output Total 1002 Balance -232 Weight 83.007 kg Intake: IV 420 Intake, IV Titration 350 Amount Vancomycin 1,500 mg In 250 Sodium Chloride 0.9% 250 ml @ 125 mls/hr IVPB ONCE ONE Rx#:[id number] metroNIDAZOLE-NS PMX 500 100 mg In Saline 1 100ml.bag @ 100 mls/hr IVPB Q8HR NAN Rx#:[id number] Output: Hemodialysis 1000 Estimated Blood Loss 2 Other: Voiding Method External Catheter External Catheter # Voids 0 - Labs CBC & Chem 7: 05/12/21 07:23 05/12/21 07:23 Labs: Abnormal Lab Results - Last 24 Hours (Table) 05/11/21 05/11/21 05/11/21 Range/Units 12:00 13:23 13:31 WBC (3.8-10.6) k/uL RBC (3.80-5.40) m/uL Hgb (11.4-16.0) gm/dL Hct (34.0-46.0) % MCHC (31.0-37.0) g/dL Neutrophils # (1.3-7.7) k/uL Lymphocytes # (1.0-4.8) k/uL BUN 18 H (7-17) mg/dL Creatinine 3.16 H (0.52-1.04) mg/dL POC Glucose (mg/dL) 51 L 114 H (75-99) mg/dL 05/11/21 05/11/21 05/11/21 Range/Units 14:40 16:29 20:24 WBC (3.8-10.6) k/uL RBC (3.80-5.40) m/uL Hgb (11.4-16.0) gm/dL Hct (34.0-46.0) % MCHC (31.0-37.0) g/dL Neutrophils # (1.3-7.7) k/uL Lymphocytes # (1.0-4.8) k/uL BUN (7-17) mg/dL Creatinine (0.52-1.04) mg/dL POC Glucose (mg/dL) 149 H 145 H 258 H (75-99) mg/dL 05/12/21 05/12/21 05/12/21 Range/Units 04:10 06:52 07:23 WBC 21.0 H (3.8-10.6) k/uL RBC 3.25 L (3.80-5.40) m/uL Hgb 9.8 L (11.4-16.0) gm/dL Hct 32.2 L (34.0-46.0) % MCHC 30.5 L (31.0-37.0) g/dL Neutrophils # 19.8 H (1.3-7.7) k/uL Lymphocytes # 0.3 L (1.0-4.8) k/uL BUN (7-17) mg/dL Creatinine (0.52-1.04) mg/dL POC Glucose (mg/dL) 226 H 221 H (75-99) mg/dL Microbiology - Last 24 Hours (Table) 05/11/21 14:00 Gram Stain - Preliminary Foot - Left Wound Culture - Preliminary 05/11/21 14:00 Anaerobic Culture - Preliminary Foot - Left 05/10/21 10:15 Blood Culture - Preliminary Blood No Growth after 24 hours 05/10/21 10:30 Blood Culture - Preliminary Blood No Growth after 24 hours
--- NOTE | 2021-05-12 11:51 | P.CNNES ---
History of Present Illness Consult date: 05/12/21 Requesting physician: Chula Perdomo Reason for Consult: increased confusion History of Present Illness: This is a 76-year-old woman with medical history of TIA, diabetes mellitus, hypertension, myocardial infarction, hypothyroidism, peripheral neuropathy, CABG, peripheral arterial disease, left breast cancer status post lumpectomy and radiation, end-stage renal disease on dialysis who presented emergency department on 05/10/2021 for left foot infection. Neurology is consulted for increased confusion. Some of the history is obtained from medical record as well as the patient's was at bedside. Seems to the patient as a been having nonhealing left second toe and there is a concern for gangrene in the le ft foot. It Was felt the patient has an acute osteomyelitis of the left foot and she was taken for the amputation as a result she had amputation of the left second toe at the proximal level on 05/11/2021. Today around 5 inch and 18 was notified because of the patient's confusion and it was felt that the patient has delirium. The patient she has a history of stroke/TIA but no focal deficit but walks with a walker and that's old. She has normal conversation. Per patient that she is on aspirin 81 mg daily. Some of the workup in the hospital consisted of Patient has been afebrile during this hospital visit. White blood cell initially 17.5 and currently is 21,000 and sat predominant neutrophilic Initial creatinine is 7.68 then it improved to 316 and currently is 5.86 Initial POC glucose is 97 the patient had the POC glucose as low as 51 yesterday around 1323 and was current glucose is in the 200s Was current potassiums 5.2 Calcium is 8.4, magnesium is 1.9, phosphorus is 6.1 which is elevated AST is 47 and ALTs 25 CRP is 35.2. Patient is on IV vancomycin and Patient has received morphine 1 mg yesterday as well as prednisone yesterday as well. Review of Systems Review of system: The 12 point system was reviewed and apparent positive and negative per HPI. 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 Last Myocardial Infarction Date:: unknown History of Any Multi-Drug Resistant Organisms: MRSA Date of last positivie culture/infection: 2017 MDRO Source:: face Past Surgical History: Breast Surgery, Cholecystectomy, Coronary Bypass/CABG, Hysterectomy, Joint Replacement Additional Past Surgical History / Comment(s): 03/22/21 abdominal aortagram, left breast lumpectomy, mary jane knee replacement, mary jane cataracts, triple CABG 4-5 yrs ago, port in chest for dialysis, R side fistula Past Anesthesia/Blood Transfusion Reactions: No Reported Reaction Smoking Status: Never smoker - Past Family History Daughter(s) Family Medical History: Cancer Additional Family Medical History / Comment(s): breast Father Family Medical History: Myocardial Infarction (RI) Additional Family Medical History / Comment(s): Father of a RI in his 60s. Mother Family Medical History: Coronary Artery Disease (CAD) Additional Family Medical History / Comment(s): Mother had heart disease Medications and Allergies Home Medications Medication Instructions Recorded Confirmed Type Acetaminophen [Tylenol] 650 mg PO Q4H PRN 01/11/21 05/10/21 History Aspirin [Adult Low Dose Aspirin EC] 81 mg PO DAILY 01/11/21 05/10/21 History Clopidogrel [Plavix] 75 mg PO DAILY 01/11/21 05/10/21 History Diphenoxylate HCl/Atropine 1 tab PO BID PRN 01/11/21 05/10/21 History [Lomotil 2.5-0.025 mg Tablet] Docusate [Colace] 100 mg PO DAILY PRN 01/11/21 05/10/21 History Insulin Aspart [NovoLOG Flexpen] See Protocol SQ ACHS PRN 01/11/21 05/10/21 History Insulin Degludec [Tresiba] 16 units SQ DAILY 01/11/21 05/10/21 History Levothyroxine Sodium [Synthroid] 75 mcg PO DAILY 01/11/21 05/10/21 History Metoprolol Tartrate [Lopressor] 50 mg PO BID 01/11/21 05/10/21 History Nitroglycerin 0.4 mg SL Q5M PRN 01/11/21 05/10/21 History Ondansetron [Zofran] 4 mg PO DAILY PRN 01/11/21 05/10/21 History Pantoprazole [Protonix] 40 mg PO DAILY 01/11/21 05/10/21 History Prochlorperazine [Compazine] 10 mg PO Q8H PRN 01/11/21 05/10/21 History Rivastigmine 4.6MG/24Hr Patch 1 patch TRANSDERM Q24HR 01/11/21 05/10/21 History [Exelon 4.6MG/24Hr Patch] Rosuvastatin [Crestor] 10 mg PO HS 01/11/21 05/10/21 History Triphrocaps 1 cap PO HS 01/11/21 05/10/21 History amLODIPine [Norvasc] 2.5 mg PO BID 01/11/21 05/10/21 History Acetaminophen-Codeine 300-30mg 1 tab PO Q6H PRN 05/10/21 05/10/21 History [Tylenol w/codeine #3] Lidocaine-Prilocaine Cream [Emla 1 applic TOPICAL MOWEFR PRN 05/10/21 05/10/21 History Cream 2.5%/2.5%] Sevelamer [Renvela] 1,600 mg PO TID-W/MEALS 05/10/21 05/10/21 History Allergies Allergy/AdvReac Type Severity Reaction Status Date / Time Iodinated Contrast Media Allergy Severe Anaphylaxis Verified 05/10/21 12:28 latex Allergy Itching Verified 05/10/21 12:28 Physical Examination - Vital Signs Vital Signs: Vital Signs Temp Pulse Pulse Pulse Pulse Resp BP 05/12/21 08:37 124/63 05/12/21 07:43 98.3 F 69 17 100/53 05/12/21 01:51 98.5 F 64 18 136/77 05/11/21 22:28 18 05/11/21 22:04 98.1 F 71 18 160/77 05/11/21 19:33 98.6 F 74 17 122/74 05/11/21 19:10 18 05/11/21 17:15 70 97/58 05/11/21 17:00 71 99/57 05/11/21 16:45 73 101/70 05/11/21 16:30 72 97/58 05/11/21 16:15 75 106/69 05/11/21 16:00 77 105/67 05/11/21 15:15 98.6 F 79 130/78 05/11/21 14:59 65 16 127/57 05/11/21 14:41 65 16 115/55 05/11/21 14:25 67 16 97/52 05/11/21 14:13 98.2 F 83 16 125/68 05/11/21 14:12 97 F L 63 16 111/56 05/11/21 13:45 76 118/69 05/11/21 13:30 75 115/67 05/11/21 13:05 98.3 F 81 20 134/60 Pulse Ox 05/12/21 08:37 98 05/12/21 07:43 83 L 05/12/21 01:51 96 05/11/21 22:28 05/11/21 22:04 98 05/11/21 19:33 93 L 05/11/21 19:10 05/11/21 17:15 96 05/11/21 17:00 98 05/11/21 16:45 97 05/11/21 16:30 98 05/11/21 16:15 97 05/11/21 16:00 98 05/11/21 15:15 98 05/11/21 14:59 97 05/11/21 14:41 05/11/21 14:25 99 05/11/21 14:13 05/11/21 14:12 100 05/11/21 13:45 98 05/11/21 13:30 97 05/11/21 13:05 94 L Intake and Output 05/11/21 05/12/21 05/12/21 22:59 06:59 14:59 Other: Voiding Method External Catheter External Catheter # Voids 0 1 # Bowel Movements 1 GENERAL: The patient is lying in bed and is not in acute distress. CHEST: The heart rate is regular rate rhythm. No murmurs to auscultation. LUNG: Clear to auscultation bilaterally no wheezing noted throughout. Not labored breathing. ABDOMEN/GI: Bowel sounds present in all 4 quadrants. No tenderness to palpation throughout. NEUROLOGICAL: Higher mental function: The patient is awake, alert, oriented to self. She stated the year is 1981 and month is December. She correctly named objects (pen and watch). Patient is following simple commands. No aphasia and no neglect. Cranial nerves: The pupils are round, equal and reactive to light. Visual lombardo are full to confrontation throughout. Extraocular movement is intact no nystagmus is noted. Facial sensation is normal to touch throughout. The facial strength is normal throughout. Tongue is midline and moved [id number] without any difficulty. No dysarthria is noted. Shoulder shrug is normal bilaterally. Motor: The strength is lifting all extremities above gravity without focality. Could not assess individual muscles. Normal tone and bulk. Cerebellum: Normal finger to nose bilaterally. Sensation: Sensation is normal to touch throughout. Reflexes (right/left): 1+. Could not assess left lower because of her current surgery. Plantars are downgoing bilaterally. Results - Laboratory Findings CBC and BMP: 05/12/21 07:23 05/12/21 07:23 Abnormal Lab Findings: Abnormal Labs 05/10/21 05/10/21 05/11/21 10:30 10:30 12:00 WBC 17.5 H RBC 3.34 L Hgb 10.1 L Hct 31.7 L MCHC Neutrophils # 15.7 H Lymphocytes # 0.7 L Sodium 132 L Potassium Chloride 89 L BUN 50 H 18 H Creatinine 7.68 H* 3.16 H Glucose 67 L POC Glucose (mg/dL) Phosphorus 6.1 H AST 47 H Alkaline Phosphatase 167 H C-Reactive Protein 35.2 H 05/11/21 05/11/21 05/11/21 13:23 13:31 14:40 WBC RBC Hgb Hct MCHC Neutrophils # Lymphocytes # Sodium Potassium Chloride BUN Creatinine Glucose POC Glucose (mg/dL) 51 L 114 H 149 H Phosphorus AST Alkaline Phosphatase C-Reactive Protein 05/11/21 05/11/21 05/12/21 16:29 20:24 04:10 WBC RBC Hgb Hct MCHC Neutrophils # Lymphocytes # Sodium Potassium Chloride BUN Creatinine Glucose POC Glucose (mg/dL) 145 H 258 H 226 H Phosphorus AST Alkaline Phosphatase C-Reactive Protein 05/12/21 05/12/21 05/12/21 06:52 07:23 07:23 WBC 21.0 H RBC 3.25 L Hgb 9.8 L Hct 32.2 L MCHC 30.5 L Neutrophils # 19.8 H Lymphocytes # 0.3 L Sodium 134 L Potassium 5.2 H Chloride 97 L BUN 34 H Creatinine 5.86 H Glucose 209 H POC Glucose (mg/dL) 221 H Phosphorus AST Alkaline Phosphatase C-Reactive Protein Assessment and Plan Assessment: Altered mental status due to multifactorial: Metabolic encephalopathy as well as her underlying acute osteomyelitis and patient had an episode of hypoglycemia on 05/11/2021 as well as in low 50s. Acute osteomyelitis over the left foot second digit status post amputation on 05/11/2021 Uncontrolled sugar currently in the 200s Peripheral arterial disease History of TIA History of coronary artery disease status post CABG History of left breast cancer status post lumpectomy and radiation End-stage renal disease on dialysis History of peripheral neuropathy Diabetes type 2 Plan: I ordered CT of the brain Ordered routine EEG. I'll not start the patient on an antiepileptic drug unless there is epileptiform discharges or seizure on the EEG Ordered TSH, vitamin B12, folate and ammonia level. Every 4 neuro checks Please avoid any hypoglycemic event and we'll defer the management to the primary team. We'll defer electrolyte imbalance correction to the primary team Infection disease team is on board Nephrology team and is on board Please avoid any sedation/narcotic which would affect the patient mentation We'll defer the rest of the medical management to the primary team The plan was discussed with the patient's and her nurse. Thank you for the consultation Lauri Rojo M.D. Neuro-Hospitalist Time with Patient: Greater than 30
[2021-05-12] MEDS ORDERED: LIDOCAINE 1% INJ 10MG/ML (20 ML MDV) SQ ONE (12:14)
[2021-05-12] MEDS ORDERED: MIDAZOLAM 2 MG/2 ML VIAL IV ONE (12:45)
[2021-05-12] MEDS ORDERED: fentaNYL (PF) 50 MCG/ML 2 ML AMP IV ONE (12:45)
[2021-05-12] MEDS ORDERED: IOPAMIDOL-250 100ML BTL INTRAARTER ONE ×2 (13:16)
[2021-05-12] MEDS ORDERED: CLOPIDOGREL 75 MG TAB PO ONE (13:16)
--- NOTE | 2021-05-12 13:39 | P.OP ---
Date of Procedure: 05/12/21 Preoperative Diagnosis: #1: Severe arterial insufficiency of the left lower extremity resulting in angulus changes of the second toe left foot. #2: Diabetic vascular disease. Postoperative Diagnosis: #1: Multiple high-grade stenoses left superficial femoral artery. #2: Single-vessel runoff via the left peroneal artery. Procedure(s) Performed: #1: Ultrasound-guided cannulation right common femoral artery. #2: Abdominal aortogram with bilateral iliac, femoral, popliteal and tibial vessels. #3: Selective catheterization left superficial femoral artery from a contralateral approach. #4: Selective left femoral angiogram. #5: Balloon dilation left superficial femoral artery with drug eluding balloon. Anesthesia: local (With 50 g of fentanyl and 1 mg of Versed for moderate conscious sedation.) Surgeon: Alireza Maria Estimated Blood Loss (ml): 20 Urine output (ml): 0 Pathology: none sent Condition: stable Disposition: no change Indications for Procedure: Patient is a 76-year-old female who presented with gangrenous changes of her left second toe. Physical examination had revealed a femoral pulse with no palpable popliteal or pedal pulses. The patient did undergo a toe amputation due to gangrenous nature of the tissue and findings at surgery demonstrated minimal bleeding. Because of the clinical findings of femoral occlusive disease and anticipated tibial artery occlusive disease patient is offered angiography with possible percutaneous intervention. Description of Procedure: Patient was brought to the cardiovascular lab. Both groins were sterilely prepped and draped in usual manner. Eventually during the case the patient did receive a total of 50 mg of fentanyl and 1 mg of Versed for moderate conscious sedation purposes. Utilizing ultrasound the right common femoral artery was identified. 1% Xy locaine was utilized for local anesthesia of the tissues overlying the right femoral artery. Through this anesthetized area with the aid of ultrasound a multipurpose needle was utilized to cannulate the common femoral artery. The needle was withdrawn and a 6-German sheath was placed. Pigtail catheter and guidewire were advanced through the sheath and positioned at the L1-L2 interspace. Abdominal aortogram was performed. Subsequently the catheter was pulled down to the level of the aortic bifurcation and bilateral pelvic, femoral, popliteal and tibial angiography was performed. Findings abdominal aortic demonstrates the aorta to be mildly tapered at it's mid segment. Single renal arteries are identified bilaterally. High-grade stenosis of the origin of the right renal artery is noted and to a lesser extent stenosis of the left renal artery is also noted. Right iliac angiography demonstrates normally patent common, external and internal segments. Right femoral angiography demonstrates the common and profundus segments to be normally patent. Multilevel stenosis of the SFA is noted which does not appear to be of hemodynamic significance. Right popliteal artery is somewhat obscured by a prosthetic knee device however visualize segments appear unremarkable. Right tibial angiography demonstrates single-vessel runoff via the peroneal artery. The anterior tibial occludes 4-5 cm distal to its origin. Posterior tibial artery is never visualized at its proximal and mid segments. Distally it reconstitutes via collaterals from the peroneal artery. Left iliac angiography demonstrates the common, external and internal segments to be normally patent. The right left common and profundus femoris arteries are unremarkable. The left superficial femoral artery demonstrates to high-grade stenoses at the mid and distal SFA levels. Left popliteal artery is partially obscured by a prosthetic knee device however as visualized appears unremarkable. Left tibial angiography demonstrates single-vessel runoff via the peroneal artery. The posterior tibial artery does fill via collaterals at the ankle mortise level. Intervention: Because of the critical limb ischemia in the multilevel SFA stenosis was felt the patient would benefit by percutaneous balloon angioplasty. Angled glide catheter and guidewire were utilized to cannulate the origin of the left iliac artery. The guidewire and catheter were then advanced into the superficial femoral artery. Planing angiography was performed. A stiff Glidewire was advanced through the glide catheter and the glide catheter was removed. The 6- German sheath was then removed and exchanged for up and over 6-German sheath which was positioned in the proximal portion of the superficial femoral artery. Utilizing a 5 mm x 200 mm drug-eluting balloon dilation of the SFA stenotic areas was completed. Completion angiogram demonstrated good cosmetic results with no evidence of flow-limiting lesion or dissection. Was felt no further intervention could be performed at this time and the catheter and sheath were then removed and pressure was held at the puncture site until all evidence of bleeding ceased. Patient tolerated procedure well and taken to the recovery assessment and stable condition. Total fluoroscopy time 14.1 minutes. Total conscious sedation time 63 minutes. Total contrast fine 130 ML's of Isovue 250.
[2021-05-12 16:05] LABS: Glucose,Whole Blood 195 mg/dL (75-99)
--- NOTE | 2021-05-12 16:19 | IR ---
Fluoroscopy HISTORY: Pain in left foot 14.1 minutes fluoroscopy time supplied to the referring clinician. 508 intraoperative C-arm images d ocument the procedure. See dictated report from vascular surgery.
[2021-05-12] MEDS: LACTATED RINGERS 1,000 ML IV SCH (19:04)
[2021-05-12] MEDS: DEXTROSE 5% IN WATER 1,000 ML IV SCH (19:04)
[2021-05-12 19:28] LABS: Glucose,Whole Blood 185 mg/dL (75-99)
[2021-05-12 20:14] LABS: Glucose,Whole Blood 184 mg/dL (75-99)
[2021-05-12] MEDS: ATORVASTATIN 20 MG TAB PO SCH (21:04)
[2021-05-13] MEDS: metroNIDAZOLE-NS PMX 500 MG in SALINE 1 100ML.BAG IVPB SCH ×3 (00:15→16:36)
[2021-05-13] MEDS: Acetaminophen-Codeine 300-30mg TAB PO PRN ×3 (00:15→22:31)
[2021-05-13 05:28] LABS: Glucose,Whole Blood 259 mg/dL (75-99)
[2021-05-13] MEDS: SEVELAMER 800 MG TAB PO SCH ×3 (07:21→16:36)
[2021-05-13] MEDS: LEVOTHYROXINE 75 MCG TAB PO SCH (07:22)
[2021-05-13] MEDS: INSULIN ASPART (NovoLOG) 100 UNIT/ML VIAL SQ SCH ×3 (07:22→18:21)
[2021-05-13] MEDS: INSULIN DETEMIR (LEVEMIR) 100 UNIT/ML SYR SQ SCH (07:23)
[2021-05-13] MEDS: FOLIC ACID-VIT B COMPLEX-VIT C 1 CAP PO SCH (07:24)
[2021-05-13] MEDS: ASPIRIN 81 MG PO SCH (08:32)
[2021-05-13] MEDS: PANTOPRAZOLE 40 MG TABLET PO SCH (08:32)
[2021-05-13] MEDS: METOPROLOL TARTRATE 50 MG TAB PO SCH ×2 (08:32→22:32)
[2021-05-13] MEDS: amLODIPine 2.5 MG TAB PO SCH ×2 (08:32→22:32)
[2021-05-13] MEDS ORDERED: VANCOMYCIN 1,500 MG in SODIUM CHLORIDE 0.9% 250 ML IVPB ONE (09:00)
--- NOTE | 2021-05-13 09:03 | CT ---
EXAMINATION TYPE: CT brain wo con DATE OF EXAM: 05/13/2021 HISTORY: Altered mental status CT DLP: 1127 mGycm. Automated Exposure Control for Dose Reduction was Utilized. TECHNIQUE: CT scan of the head is performed without contrast. COMPARISON: None. FINDINGS: There is no acute intracranial hemorrhage or midline shift identified. There is mild to m oderate diffuse ventricular and sulcal prominence consistent with diffuse age-related cerebral atroph y. There is fairly severe low-attenuation in the periventricular white matter consistent with chroni c small vessel ischemic change in patient of this age. The globes are intact and the visualized sinu ses are clear. IMPRESSION: No acute intracranial hemorrhage or midline shift. There is mild to moderate diffuse ce rebral atrophy and fairly severe chronic small vessel ischemic change noted.
[2021-05-13] MEDS: RIVASTIGMINE 4.6MG/24HR PATCH TRANSDERM SCH (09:17)
[2021-05-13] MEDS: MIDODRINE 5 MG TAB PO PRN (09:49)
--- NOTE | 2021-05-13 10:24 | P.PN ---
Subjective Progress Note Date: 05/13/21 The patient is seen at bedside and per her nurse's aid she continues to be confused. Yesterday the patient was taken for procedure by Vascuar surgery team and had cath of lower extremity and had balloon dilatation of left superificial femoral artery with drug eluding: In the vascular surgery report it is reported as Multiple high grade stenosis of left superficial femoral artery. Single vessel runoff via the left peroneal artery. Since patient was in procedure yesterday she did not have an EEG and will likely be done on 05/15/2021. Objective - Vital Signs Vital signs: Vital Signs Temp 97.2 F L 05/13/21 08:00 Pulse 59 L 05/13/21 08:00 Resp 18 05/13/21 08:00 BP 113/55 05/13/21 08:00 Pulse Ox 94 L 05/13/21 08:00 Intake & Output 05/12/21 05/13/21 05/13/21 18:59 06:59 18:59 Intake Total 485 260 120 Output Total 0 0 Balance 485 260 120 Intake: IV 185 Invasive Line 2 10 [id number] PMX 500 100 mg In Saline 1 100ml.bag @ 100 mls/hr IVPB Q8HR [facility] Rx#:[id number] Oral 300 260 120 Output: Gastric Drainage 0 Urine 0 0 Stool 0 0 Urine/Stool Mix 0 Emesis 0 Oral Regurgitation 0 Other 0 Other: Voiding Method External Catheter External Catheter # Voids 0 # Bowel Movements 0 - Exam GENERAL: The patient is lying in bed and is not in acute distress. NEUROLOGICAL: Higher mental function: The patient is awake, alert, oriented to self. She stated the year is 2002 and month is December. With options she stated that she was in the hospital but stated she was in [facility] and kept on repeating the same phrase. She correctly named objects (pen and watch). Patient is following simple commands. It is hard to assess her language in detailed. She keeps on repeating the same phrase. No neglect. Cranial nerves: The pupils are round, equal and reactive to light. Visual lombardo are hard to assess because of her cooperation. No facial weakness. No dysarthria. Motor: The strength is lifting all extremities above gravity without focality. Normal tone and bulk. Cerebellum: Normal finger to nose bilaterally. Sensation: Sensation is normal to touch throughout. WORK-UP: Ammonia level is 17 Lipid panel on 02/16/2021: Triglyceride of 112, cholesterol 94, LDLs [address] head is reported as no acute intracranial hemorrhage or midline shift. There is mild to moderate diffuse cerebral atrophy and fairly severe chronic small vessel ischemic changes noted. I personally reviewed the CT of the head and I don't feel like there is any acute or subacute ischemia. I reviewed the CT and felt, has an old left cerebellar as well as an old left parietal occipital region, patient has old bilateral lacunar infarct in bilateral thalamus. - Labs CBC & Chem 7: 05/12/21 07:23 05/12/21 07:23 Labs: Abnormal Lab Results - Last 24 Hours (Table) 05/12/21 05/12/21 05/12/21 Range/Units 16:02 19:08 20:13 POC Glucose (mg/dL) 195 H 185 H 184 H (75-99) mg/dL 05/13/21 Range/Units 05:27 POC Glucose (mg/dL) 259 H (75-99) mg/dL Microbiology - Last 24 Hours (Table) 05/11/21 14:00 Gram Stain - Preliminary Foot - Left Wound Culture - Preliminary Presumptive Staph aureus 05/10/21 10:15 Blood Culture - Preliminary Blood No Growth after 48 hours 05/10/21 10:30 Blood Culture - Preliminary Blood No Growth after 48 hours Assessment and Plan Assessment: Altered mental status due to multifactorial: Metabolic encephalopathy as well as her underlying acute osteomyelitis and patient had an episode of hypoglycemia on 05/11/2021 as well as in low 50s. Acute osteomyelitis over the left foot second digit status post amputation on 05/11/2021 Uncontrolled sugar currently in the 200s Peripheral arterial disease (recent cath on 05/12/2021: Multiple high grade stenosis of left superficial femoral artery. Single vessel runoff via the left peroneal artery) History of stroke History of coronary artery disease status post CABG History of left breast cancer status post lumpectomy and radiation End-stage renal disease on dialysis History of peripheral neuropathy Diabetes type 2 Plan: * CT head is reported as no acute intracranial hemorrhage or midline shift. There is mild to moderate diffuse cerebral atrophy and fairly severe chronic small vessel ischemic changes noted. I personally reviewed the CT of the head and I don't feel like there is any acute or subacute ischemia. I reviewed the CT and felt, has an old left cerebellar as well as an old left parietal occip ital region, patient has old bilateral lacunar infarct in bilateral thalamus. * Patient is on ASA 81mg daily and Lipitor 20mg qhs. * Ordered MRI Brain w/o to rule out acute to subacute ischemic stroke. * Ordered Carotid duplex and 2D echo for her history of stroke which I do not see anyone done. * Pending routine EEG (likely will be performed on 05/15/2021). I'll not start the patient on an antiepileptic drug unless there is epileptiform discharges or seizure on the EEG * TSH, vitamin B12, folate are pending. * Had lipid panel on 02/16/2021 and Leslie snot need to be repeated. * Every 4 neuro checks * Please avoid any hypoglycemic event and we'll defer the management to the primary team. * We'll defer electrolyte imbalance correction to the primary team * Infection disease team is on board * Nephrology team and is on board * Please avoid any sedation/narcotic which would affect the patient mentation * We'll defer the rest of the medical management to the primary team The plan was discussed with the patient's nurse. Lauri Rojo M.D. Neuro-Hospitalist Time with Patient: Less than 30
[2021-05-13 11:51] LABS: Glucose,Whole Blood 136 mg/dL (75-99)
--- NOTE | 2021-05-13 12:21 | P.PN ---
Subjective Patient is seen for follow-up for end-stage renal disease. Patient is maintained on a Saturday schedule. She was not dialyzed yesterday as patient was having the angiogram done. Patient is status post left second toe amputation on 05/11/2021 Yesterday patient had an angiogram done with angioplasty of the left femoral artery. Patient is seen on hemodialysis. She is tolerating her treatment well. Objective - Vital Signs Vital signs: Vital Signs Temp 97.2 F L 05/13/21 08:00 Pulse 59 L 05/13/21 08:00 Resp 18 05/13/21 08:00 BP 113/55 05/13/21 08:00 Pulse Ox 94 L 05/13/21 08:00 Intake & Output 05/12/21 05/13/21 05/13/21 18:59 06:59 18:59 Intake Total 485 260 220 Output Total 0 0 Balance 485 260 220 Intake: IV 185 100 Invasive Line 2 10 metroNIDAZOLE-NS PMX 500 100 100 mg In Saline 1 100ml.bag @ 100 mls/hr IVPB Q8HR [facility] Rx#:[id number] Oral 300 260 120 Output: Gastric Drainage 0 Urine 0 0 Stool 0 0 Urine/Stool Mix 0 Emesis 0 Oral Regurgitation 0 Other 0 Other: Voiding Method External Catheter External Catheter # Voids 0 # Bowel Movements 0 - Exam Patient is awake, comfortable, not in any acute distress Examination of the heart S1 and S2 Examination lungs bilateral breath sounds are heard Abdomen is soft nontender Examination lower extremities shows left foot is currently wrapped. no significant edema in the right leg. DENTIST ATTENDANT exam grossly intact - Labs CBC & Chem 7: 05/12/21 07:23 05/12/21 07:23 Labs: Abnormal Lab Results - Last 24 Hours (Table) 05/12/21 05/12/21 05/12/21 Range/Units 16:02 19:08 20:13 POC Glucose (mg/dL) 195 H 185 H 184 H (75-99) mg/dL 05/13/21 05/13/21 Range/Units 05:27 11:49 POC Glucose (mg/dL) 259 H 136 H (75-99) mg/dL Microbiology - Last 24 Hours (Table) 05/11/21 14:00 Gram Stain - Preliminary Foot - Left Wound Culture - Preliminary Presumptive Staph aureus 05/10/21 10:15 Blood Culture - Preliminary Blood No Growth after 48 hours 05/10/21 10:30 Blood Culture - Preliminary Blood No Growth after 48 hours Assessment and Plan Assessment: 1. End-stage renal disease on hemodialysis on a Saturday schedule 2. Cellulitis/acute osteomyelitis of the left second toe with gangrenous changes status post left second toe amputation and angioplasty of the left femoral artery 3. Type 2 diabetes maintained on insulin 4. CK D mineral bone disorder 5. Peripheral vascular disease 6. Coronary artery disease Plan: Next hemodialysis on 05/15/2021 Add Thom
[2021-05-13] MEDS ORDERED: DARBEPOETIN ALFA 40 MCG/0.4 ML SYRINGE SQ SCH (13:00)
[2021-05-13] MEDS: LACTATED RINGERS 1,000 ML IV SCH (13:02)
--- NOTE | 2021-05-13 13:40 | US ---
EXAMINATION TYPE: US carotid duplex BILAT DATE OF EXAM: 05/13/2021 COMPARISON: NONE CLINICAL HISTORY: stroke. Weakness. EXAM MEASUREMENTS: RIGHT: Peak Systolic Velocity (PSV) cm/sec ----- Right CCA: 42.1 ----- Right ICA: 69.8 ----- Right ECA: 65.1 ICA/CCA ratio: 1.7 RIGHT: End Diastole cm/sec ----- Right CCA: 10.4 ----- Right ICA: 17.8 ----- Right ECA: 0 LEFT: Peak Systolic Velocity (PSV) cm/sec ----- Left CCA: 57.5 ----- Left ICA: 74.7 ----- Left ECA: 82.4 ICA/CCA ratio: 1.3 LEFT: End Diastole cm/sec ----- Left CCA: 7.8 ----- Left ICA: 13.1 ----- Left ECA: 0 VERTEBRALS (direction of flow): Right Vertebral: Antegrade Left Vertebral: Antegrade Rhythm: Normal Mild peripheral plaque right carotid bulb on grayscale images. IMPRESSION: No hemodynamically significant stenosis in either internal carotid artery. Criteria for Assigning % of Stenosis / Diameter reduction (Estimation based on the indirect measurements of the internal carotid artery velocities (ICA PSV). 1. Normal (no stenosis)=ICA PSV < 125 cm/s: ratio < 2.0: ICA EDV<40 cm/s. 2. Less than 50% stenosis=ICA PSV < 125 cm/s: ratio < 2.0: ICA EDV<40 cm/s. 3. 50 to 69% stenosis=ICA PSV of 125 to 230 cm/s: ration 2.0 ? 4.0: ICA EDV 40-100 cm/s. 4. Greater than 70% stenosis to near occlusion= ICA PSV > 230 cm/s: ratio > 4.0: ICA EDV > 100 cm/s. 5. Near occlusion= ICA PSV velocities may be low or undetectable: variable ratio and ICA EDV. 6. Total occlusion=unable to detect flow.
--- NOTE | 2021-05-13 14:04 | P.PN ---
Subjective Progress Note Date: 05/13/21 Patient is evaluated after undergoing balloon angioplasty of the left superficial femoral artery. She appears much more comfortable. She indicates her foot pain has dramatically decreased. She is complaining about the hospital food. Objective - Vital Signs Vital signs: Vital Signs Temp 98.2 F 05/13/21 13:07 Pulse 61 05/13/21 13:07 Resp 18 05/13/21 13:34 BP 113/57 05/13/21 13:07 Pulse Ox 95 05/13/21 12:00 Intake & Output 05/12/21 05/13/21 05/13/21 18:59 06:59 18:59 Intake Total 485 260 220 Output Total 0 0 1000 Balance 485 260 -780 Intake: IV 185 100 Invasive Line 2 10 metroNIDAZOLE-NS PMX 500 100 100 mg In Saline 1 100ml.bag @ 100 mls/hr IVPB Q8HR [facility] Rx#:[id number] Oral 300 260 120 Output: Gastric Drainage 0 Urine 0 0 Stool 0 0 Urine/Stool Mix 0 Emesis 0 Oral Regurgitation 0 Hemodialysis 1000 Other 0 Other: Voiding Method External Catheter External Catheter # Voids 0 # Bowel Movements 0 - Labs CBC & Chem 7: 05/12/21 07:23 05/12/21 07:23 Labs: Abnormal Lab Results - Last 24 Hours (Table) 05/12/21 05/12/21 05/12/21 Range/Units 16:02 19:08 20:13 POC Glucose (mg/dL) 195 H 185 H 184 H (75-99) mg/dL Vitamin B12 (200.0-944.0) pg/mL 05/13/21 05/13/21 05/13/21 Range/Units 05:27 09:54 11:49 POC Glucose (mg/dL) 259 H 136 H (75-99) mg/dL Vitamin B12 1962.0 H (200.0-944.0) pg/mL Microbiology - Last 24 Hours (Table) 05/10/21 10:15 Blood Culture - Preliminary Blood No Growth after 72 hours 05/10/21 10:30 Blood Culture - Preliminary Blood No Growth after 72 hours 05/11/21 14:00 Gram Stain - Preliminary Foot - Left Wound Culture - Preliminary Presumptive Staph aureus Assessment and Plan Assessment: The patient's puncture site is clean, dry and without hematoma. The left leg is free of tenderness and edema. Owing to the patient's severe tibial artery occlusive disease no further intervention to be appropriate. Hopefully the percutaneous revascularization is enough to allow the foot wound to heal. We will continue with local wound care. Plan: Plan: Continue current therapy. Time with Patient: Less than 30
--- NOTE | 2021-05-13 16:09 | P.PN ---
Subjective Progress Note Date: 05/13/21 HISTORY OF PRESENT ILLNESS This is a 76-year-old female one of my office patient with past medical history of end-stage renal disease, CVA, coronary artery disease,, diabetes mellitus type 2 insulin requiring, hypertension, hyperlipidemia, hypothyroidism, peripheral vascular disease, obstructive sleep apnea without CPAP, history of breast cancer status post radiation. Patient has recently been transitioned to HD and Dr. Nicolas or [place] 01/12/2021. Patient States That She Is Normally Saturday Dialysis and Denies Missing Any Recent Appointments. She Has a Left-Sided Port in Place and Also a Right-Sided Fistula. Patient presented with complaints of wound to the left second toe and redness to the left lower extremity been going on for extended period of time. She is established with the wound healing Center and recently on Bactrim. Patient was hospitalized 10 days ago for worsening gangrenous change of the left second toe with worsening infection in circulation. Was treated and referred to the Wound Center and vascular. Her symptoms become much worse. Patient was seen Dr. Nicolas today and found to have much worsening gangrenous change in the toe compared to last admission. White blood cell was 17 500 x-ray of the toe suggested of osteomyelitis in the middle and the distal phalanx soft tissue swelling of the third digit soft tissue change between the second and third was followed as well. The current finding patient was sent to the hospital was started on IV antibiotic at this point see infectious disease patient will be going for amputation with the vascular service over the next day or 2. 05/11: Patient was seen by vascular surgery with plan for amputation of the 2nd toe left foot today followed by lower extremity angiogram on Saturday. Patient continues to have significant pain in the left foot. She is scheduled for hemodialysis treatment today, normal days are Saturday and she missed yesterday. Patient has been afebrile, heart rate in the 60s and 70s, blood pressure 96/54, pulse ox 96% on 4 L nasal cannula. Her blood glucose running between 84 and 97. Parameters placed for amlodipine to hold if systolic blood pressure less than 120. Nephrology has added and midodrine 10 mg 3 times daily for hypotension. She is currently on IV antibiotics in form of vancomycin, Zosyn, Flagyl. 05/12: Yesterday, patient underwent imitation of left second toe at the proximal phalangeal level. Patient had event last night in which A-Team was called for confusion. Patient was oriented to self, no focal weakness. Plan was for frequent reorientation. Confusion thought to be related to medications and hospitalization. This morning, is at bedside. He is concerned about her confusion, consult added for neurology. Updated that she would be best served to go home to her own environment as soon as possible. He does have family issues and will not be oh to take her home until Saturday. Blood cultures are showing no growth at 24 hours 2, wound culture is in progress. corporate communications manager has arranged for [facility] care services. 05/13: patient is doing well today continue to have slight pain and discomfort in the left foot, she is going for dialysis today. Patient was seen urology for possible new CVA review CAT scan showed bilateral lacunar infarct in bilateral thalamus area and patient ended up being recommended to go for an MRI of the brain to rule out acute versus subacute ischemic event with recommendation to do 2-D echo along with carotid ultrasound. 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 Still plan if patient is stable to be discharged either tomorrow or on Saturday after her MRIs done specially if it's clear by vascular surgery. REVIEW OF SYSTEMS Constitutional: No fever, no chills, no night sweats. No weight change. No weakness, fatigue or lethargy. No daytime sleepiness. EENT: No headache. No blurred vision or double vision, no loss of vision. No loss of Hearing, no ringing in the ears, no dizziness. No nasal drainage or congestion. No epistaxis. No sore throat. Lungs: No shortness of breath, cough, no sputum production. No wheezing. Cardiovascular: No chest pain, no lower extremity edema. No palpitations. No paroxysmal nocturnal dyspnea. No orthopnea. No lightheadedness or dizziness. No syncopal episodes. Abdominal: No abdominal pain. No nausea, vomiting. No diarrhea. No constipation. No bloody or tarry stools. No loss of appetite. Genitourinary: No dysuria, increased frequency, urgency. No urinary retention. Musculoskeletal: No myalgias. No muscle weakness, no gait dysfunction, no frequent falls. No back pain. No neck pain. Reports pain in the left foot. Integumentary: Reported left toe wounds, no lesions. No rash or pruritus. No unusual bruising. No change in hair or nails. Neurologic: No aphasia. No facial droop. Noted change in mentation. No head injury. No headache. No paralysis. No paresthesia. Psychiatric: No depression. No anxiety. No mood swings. Endocrine: Noted abnormal blood sugars. No weight change. No excessive sweating or thirst. No cold intolerance. PHYSICAL EXAMINATION Gen: This is a 76-year-old female. Patient is resting in the ER stretcher and appears to be comfortable and in no acute distress. HEENT: Head is atraumatic, normocephalic. Pupils equal, round. Sclerae is anicteric. NECK: Supple. No JVD. No lymphadenopathy. No thyromegaly. LUNGS: Clear to auscultation. No wheezes or rhonchi. No intercostal retractions. HEART: Regular rate and rhythm. No murmur. ABDOMEN: Soft. Bowel sounds are present. No masses. No tenderness. EXTREMITIES: No pedal edema. No calf tenderness. Necrotic tissue to the left second toe. NEUROLOGICAL: Patient is awake, alert and oriented x3. Cranial nerves 2 through 12 are grossly intact. ASSESSMENT AND PLAN 1. Acute osteomyelitis of the left second toe with gangrenous change. Status post amputation of left second toe 05/11. doing better so far still on antibiotics. 2 severe PAD: Post balloon angioplasty of the left superficial femoral artery, patient will remain on dual antiplatelet agent. 3. End-stage renal disease on hemodialysis Saturday. Consult with nephrology 4. Diabetes mellitus type 2 insulin requiring. Patient will be resumed on home medications, NovoLog scale before meals and at bedtime, hemoglobin A1c 7.6. 5. Coronary artery disease: Has been seen cardiology regularly no chest pain or angina at this point. 6. History of CVA with short-term memory deficit. still have quite bit residual this point workup done by neurology showed potential of subacute with acute stroke she's been ago for an MRI of the brain the meanwhile carotid and echo is done patient is going for an EEG as well. 7. Teri 5 peripheral arterial disease: post angioplasty and stent placement of the left superficial femoral artery remain on dual antiplatelet agent and aspirin. 8. Hypertension: Continue patient on amlodipine 2.5 mg twice a day with parameters along with metoprolol titrate 50 mg twice a day. Midodrine 10 mg 3 times daily as needed added by nephrology. 9. Hyperlipidemia: Still on atorvastatin 20 mg daily. 10. Hypothyroidism: Remain on levothyroxine 75 g a day. 11. History of obstructive sleep apnea not utilizing CPAP. 12. History of breast cancer status post radiation, stable. 13. Acute delirium most likely secondary to hospitalization, medications, change in environment. Concern for possible underlying dementia. Reorientation, consult with neurology. discharge planning: Possibly home on Saturday after her MRI is complete. Objective - Vital Signs Vital signs: Vital Signs Temp 97.2 F L 05/13/21 08:00 Pulse 59 L 05/13/21 08:00 Resp 18 05/13/21 08:00 BP 113/55 05/13/21 08:00 Pulse Ox 94 L 05/13/21 08:00 Intake & Output 05/12/21 05/13/21 05/13/21 18:59 06:59 18:59 Intake Total 485 260 220 Output Total 0 0 Balance 485 260 220 Intake: IV 185 100 Invasive Line 2 10 metroNIDAZOLE-NS PMX 500 100 100 mg In Saline 1 100ml.bag @ 100 mls/hr IVPB Q8HR [facility] Rx#:[id number] Oral 300 260 120 Output: Gastric Drainage 0 Urine 0 0 Stool 0 0 Urine/Stool Mix 0 Emesis 0 Oral Regurgitation 0 Other 0 Other: Voiding Method External Catheter External Catheter # Voids 0 # Bowel Movements 0 - Labs CBC & Chem 7: 05/12/21 07:23 05/12/21 07:23 Labs: Abnormal Lab Results - Last 24 Hours (Table) 05/12/21 05/12/21 05/12/21 Range/Units 16:02 19:08 20:13 POC Glucose (mg/dL) 195 H 185 H 184 H (75-99) mg/dL Vitamin B12 (200.0-944.0) pg/mL 05/13/21 05/13/21 05/13/21 Range/Units 05:27 09:54 11:49 POC Glucose (mg/dL) 259 H 136 H (75-99) mg/dL Vitamin B12 1962.0 H (200.0-944.0) pg/mL Microbiology - Last 24 Hours (Table) 05/10/21 10:15 Blood Culture - Preliminary Blood No Growth after 72 hours 05/10/21 10:30 Blood Culture - Preliminary Blood No Growth after 72 hours 05/11/21 14:00 Gram Stain - Preliminary Foot - Left Wound Culture - Preliminary Presumptive Staph aureus
[2021-05-13 17:02] LABS: Glucose,Whole Blood 161 mg/dL (75-99)
--- NOTE | 2021-05-13 19:20 | ECHOF ---
Referral Reason:stroke MEASUREMENTS -------- HEIGHT: 160.0 cm WEIGHT: 83.0 kg BP: IVSd: 1.5 cm (0.6 - 1.1) LVIDd: 3.5 cm (3.9 - 5.3) LVPWd: 1.3 cm (0.6 - 1.1) IVSs: 1.9 cm LVIDs: 2.2 cm LVPWs: 2.1 cm Ao Diam: 3.1 cm (2.0 - 3.7) AV Cusp: 1.9 cm (1.5 - 2.6) LA Diam: 3.5 cm (2.7 - 3.8) MV EXCURSION: 13.883 mm (> 18.000) MV EF SLOPE: 34 mm/s (70 - 150) EPSS: 0.6 cm MV E Rio: 1.14 m/s MV DecT: 415 ms MV A Rio: 0.85 m/s MV E/A Ratio: 1.34 RAP: 5.00 mmHg RVSP: 49.28 mmHg FINDINGS -------- This was a technically difficult study with suboptimal views. The left ventricular size is normal. There is moderate concentric left ventricular hypertrophy. O verall left ventricular systolic function is normal with, an EF between 55 - 60 %. The right ventricle is normal in size. The left atrial size is normal. The right atrial size is normal. 5.0mg of Lumason was utilized for enhancement of images The aortic valve is trileaflet and appears structurally normal. The mitral valve is normal. The mitral valve leaflets are mildly thickened. Mild mitral annular c alcification present. Mild mitral regurgitation is present. Mild mitral stenosis. The tricuspid valve appears structurally normal. Severe tricuspid regurgitation present. There is moderate pulmonary hypertension. The right ventricular systolic pressure, as measured by Doppler, is 49.28mmHg. There is no pulmonic regurgitation present. The aortic root size is normal. IVC Not well visulized. There is no pericardial effusion. CONCLUSIONS -------- 1. The left ventricular size is normal. 2. There is moderate concentric left ventricular hypertrophy. 3. Overall left ventricular systolic function is normal with, an EF between 55 - 60 %. 4. The aortic valve is trileaflet and appears structurally normal. 5. The mitral valve leaflets are mildly thickened. 6. Mild mitral annular calcification present. 7. Mild mitral regurgitation is present. 8. Mild mitral stenosis. 9. Severe tricuspid regurgitation present. 10. There is moderate pulmonary hypertension. 11. The right ventricular systolic pressure, as measured by Doppler, is 49.28mmHg. 12. There is no pericardial effusion. NURSE ASSISTANT: Lizbeth Burroughs RDCS
[2021-05-13 20:05] LABS: Glucose,Whole Blood 127 mg/dL (75-99)
[2021-05-13] MEDS: ATORVASTATIN 20 MG TAB PO SCH (22:32)
[2021-05-14 06:18] LABS: Glucose,Whole Blood 67 mg/dL (75-99)
[2021-05-14 06:39] LABS: Glucose,Whole Blood 56 mg/dL (75-99)
[2021-05-14] MEDS: FOLIC ACID-VIT B COMPLEX-VIT C 1 CAP PO SCH ×2 (06:47→20:22)
[2021-05-14] MEDS: INSULIN ASPART (NovoLOG) 100 UNIT/ML VIAL SQ SCH ×5 (06:47→20:25)
[2021-05-14] MEDS: metroNIDAZOLE-NS PMX 500 MG in SALINE 1 100ML.BAG IVPB SCH ×3 (06:48→15:26)
[2021-05-14] MEDS: SEVELAMER 800 MG TAB PO SCH ×3 (06:48→15:43)
[2021-05-14] MEDS: LEVOTHYROXINE 75 MCG TAB PO SCH (06:49)
[2021-05-14 07:01] LABS: Glucose,Whole Blood 71 mg/dL (75-99)
[2021-05-14] MEDS: INSULIN DETEMIR (LEVEMIR) 100 UNIT/ML SYR SQ SCH (07:27)
[2021-05-14 07:40] LABS: Glucose,Whole Blood 33 mg/dL (75-99)
[2021-05-14] MEDS ORDERED: DEXTROSE 50% SYRINGE 50 ML IVP ONE (07:41)
[2021-05-14 08:08] LABS: Glucose,Whole Blood 109 mg/dL (75-99)
[2021-05-14 09:03] LABS: Glucose,Whole Blood 258 mg/dL (75-99)
[2021-05-14] MEDS: amLODIPine 2.5 MG TAB PO SCH (09:54)
[2021-05-14] MEDS: ASPIRIN 81 MG PO SCH (09:54)
[2021-05-14] MEDS: METOPROLOL TARTRATE 50 MG TAB PO SCH ×2 (09:54→20:22)
[2021-05-14] MEDS: RIVASTIGMINE 4.6MG/24HR PATCH TRANSDERM SCH (09:55)
[2021-05-14] MEDS: PANTOPRAZOLE 40 MG TABLET PO SCH (09:55)
--- NOTE | 2021-05-14 09:56 | US ---
EXAMINATION TYPE: US arterial LE single level DATE OF EXAM: 05/13/2021 5:49 PM CLINICAL HISTORY: ischemia / PVD. Patient had recent left-sided angioplasty. History of hypertension and diabetes. Absent bilateral foot pulses Doppler Waveforms: Right: Biphasic Left: Monophasic Ankle-Brachial Indices: Right: 0.84 Left: 0.48 Toe Brachial Indices: Right: 0.3 Left: Deferred IMPRESSION : Persistent mild/moderate left lower extremity peripheral arterial disease with diminishe d HUMAIRA and loss of phasicity. Persistent at least mild peripheral arterial disease in the right foot.
--- NOTE | 2021-05-14 11:20 | P.PN ---
Subjective Progress Note Date: 05/14/21 Patient appears somewhat confused. I discussed the situation with the patient's nurse who indicated the patient had a very difficult night last night. Early this morning her blood glucose level was quite low which resulted in the need for an amp of dextrose. Nursing reports current glucose is approximately 250. They also indicate that her pulse ox is in the low 90s and that the patient refuses to wear oxygen. Lowest recorded pulse ox was 89% on room air. Patient is complaining of abdominal discomfort however my examination revealed minimal in the way of abdominal discomfort to palpation. I had a discussion with the patient's and daughter. All questions were answered to their satisfaction. Objective - Vital Signs Vital signs: Vital Signs Temp 97.4 F L 05/14/21 07:39 Pulse 59 L 05/14/21 07:39 Resp 18 05/14/21 08:00 BP 116/70 05/14/21 07:39 Pulse Ox 90 L 05/14/21 07:39 Intake & Output 05/13/21 05/14/21 05/14/21 18:59 06:59 18:59 Intake Total 460 250 150 Output Total 1000 0 Balance -540 250 150 Intake: IV 100 150 Invasive Line 4 50 metroNIDAZOLE-NS PMX 500 100 100 mg In Saline 1 100ml.bag @ 100 mls/hr IVPB Q8HR [facility] Rx#:[id number] Oral 360 250 Output: Stool 0 Hemodialysis 1000 Other: # Voids 1 0 - Labs CBC & Chem 7: 05/12/21 07:23 05/12/21 07:23 Labs: Abnormal Lab Results - Last 24 Hours (Table) 05/13/21 05/13/21 05/13/21 Range/Units 09:54 11:49 17:00 POC Glucose (mg/dL) 136 H 161 H (75-99) mg/dL Vitamin B12 1962.0 H (200.0-944.0) pg/mL 05/13/21 05/14/21 05/14/21 Range/Units 20:04 06:11 06:30 POC Glucose (mg/dL) 127 H 67 L 56 L (75-99) mg/dL Vitamin B12 (200.0-944.0) pg/mL 05/14/21 05/14/21 05/14/21 Range/Units 06:59 07:39 07:48 POC Glucose (mg/dL) 71 L 33 L 109 H (75-99) mg/dL Vitamin B12 (200.0-944.0) pg/mL 05/14/21 Range/Units 08:59 POC Glucose (mg/dL) 258 H (75-99) mg/dL Vitamin B12 (200.0-944.0) pg/mL Microbiology - Last 24 Hours (Table) 05/11/21 14:00 Gram Stain - Final Foot - Left Wound Culture - Final Staphylococcus aureus 05/11/21 14:00 Anaerobic Culture - Preliminary Foot - Left 05/10/21 10:15 Blood Culture - Preliminary Blood No Growth after 72 hours 05/10/21 10:30 Blood Culture - Preliminary Blood No Growth after 72 hours Assessment and Plan Assessment: #1: Postop day #2/3. Second toe amputation and balloon dilation of the left SFA. Plan: #1: Continue supportive care/no changes from a vascular surgical standpoint.. Time with Patient: Less than 30
[2021-05-14 11:25] LABS: Basophils % (A) 0 %; Eosinophils # (A) 0.1 k/uL (0-0.7); Eosinophils % (A) 0 %; HCT 31.9 % (34.0-46.0); HGB 9.6 gm/dL (11.4-16.0); Hypochromasia Marked; Lymphocytes # (A) 0.8 k/uL (1.0-4.8); Lymphocytes % (A) 5 %; MCH 30.5 pg (25.0-35.0); MCHC 30.2 g/dL (31.0-37.0); MCV 101.2 fL (80.0-100.0); Macrocytosis Slight; Monocytes # (A) 0.7 k/uL (0-1.0); Monocytes % (A) 4 %; Neutrophils # (A) 15.5 k/uL (1.3-7.7); Neutrophils % (A) 90 %; Platelet Count 242 k/uL (150-450); RBC 3.15 m/uL (3.80-5.40); RDW 14.2 % (11.5-15.5); WBC 17.2 k/uL (3.8-10.6)
[2021-05-14 11:33] LABS: Albumin 3.1 g/dL (3.5-5.0); Calcium 8.1 mg/dL (8.4-10.2); Potassium 4.9 mmol/L (3.5-5.1); Total Bilirubin 0.7 mg/dL (0.2-1.3); Total Protein 6.1 g/dL (6.3-8.2)
[2021-05-14 11:42] LABS: Glucose,Whole Blood 208 mg/dL (75-99)
--- NOTE | 2021-05-14 11:43 | P.PN ---
Subjective Patient is seen for follow-up for end-stage renal disease. Patient is maintained on a Saturday schedule. She was not dialyzed yesterday as patient was having the angiogram done. Patient is status post left second toe amputation on 05/11/2021 patient had an angiogram done with angioplasty of the left femoral artery on 05/12/2021 Patient tolerated dialysis well yesterday. 1 L of ultrafiltration This morning patient is confused. Family is present at bedside. She had pulled out about 4 IVs overnight. Last pain med was Tylenol 3 yesterday afternoon Objective - Vital Signs Vital signs: Vital Signs Temp 97.4 F L 05/14/21 07:39 Pulse 59 L 05/14/21 07:39 Resp 18 05/14/21 08:00 BP 116/70 05/14/21 07:39 Pulse Ox 90 L 05/14/21 07:39 Intake & Output 05/13/21 05/14/21 05/14/21 18:59 06:59 18:59 Intake Total 460 250 150 Output Total 1000 0 Balance -540 250 150 Intake: IV 100 150 Invasive Line 4 50 metroNIDAZOLE-NS PMX 500 100 100 mg In Saline 1 100ml.bag @ 100 mls/hr IVPB Q8HR NAN Rx#:[id number] Oral 360 250 Output: Stool 0 Hemodialysis 1000 Other: # Voids 1 0 - Exam Patient is awake, comfortable, not in any acute distress, confused Examination of the heart S1 and S2 Examination lungs bilateral breath sounds are heard Abdomen is soft nontender Examination lower extremities shows left foot is currently wrapped. no significant edema in the right leg. CUTTING TOOL SHARPENER exam grossly intact - Labs CBC & Chem 7: 05/14/21 10:57 05/14/21 10:57 Labs: Abnormal Lab Results - Last 24 Hours (Table) 05/13/21 05/13/21 05/13/21 Range/Units 09:54 11:49 17:00 WBC (3.8-10.6) k/uL RBC (3.80-5.40) m/uL Hgb (11.4-16.0) gm/dL Hct (34.0-46.0) % MCV (80.0-100.0) fL MCHC (31.0-37.0) g/dL Neutrophils # (1.3-7.7) k/uL Lymphocytes # (1.0-4.8) k/uL Sodium (137-145) mmol/L Chloride (98-107) mmol/L Carbon Dioxide (22-30) mmol/L BUN (7-17) mg/dL Creatinine (0.52-1.04) mg/dL Glucose (74-99) mg/dL POC Glucose (mg/dL) 136 H 161 H (75-99) mg/dL Calcium (8.4-10.2) mg/dL AST (14-36) U/L ALT (4-34) U/L Alkaline Phosphatase (38-126) U/L Total Protein (6.3-8.2) g/dL Albumin (3.5-5.0) g/dL Vitamin B12 1962.0 H (200.0-944.0) pg/mL 05/13/21 05/14/21 05/14/21 Range/Units 20:04 06:11 06:30 WBC (3.8-10.6) k/uL RBC (3.80-5.40) m/uL Hgb (11.4-16.0) gm/dL Hct (34.0-46.0) % MCV (80.0-100.0) fL MCHC (31.0-37.0) g/dL Neutrophils # (1.3-7.7) k/uL Lymphocytes # (1.0-4.8) k/uL Sodium (137-145) mmol/L Chloride (98-107) mmol/L Carbon Dioxide (22-30) mmol/L BUN (7-17) mg/dL Creatinine (0.52-1.04) mg/dL Glucose (74-99) mg/dL POC Glucose (mg/dL) 127 H 67 L 56 L (75-99) mg/dL Calcium (8.4-10.2) mg/dL AST (14-36) U/L ALT (4-34) U/L Alkaline Phosphatase (38-126) U/L Total Protein (6.3-8.2) g/dL Albumin (3.5-5.0) g/dL Vitamin B12 (200.0-944.0) pg/mL 05/14/21 05/14/21 05/14/21 Range/Units 06:59 07:39 07:48 WBC (3.8-10.6) k/uL RBC (3.80-5.40) m/uL Hgb (11.4-16.0) gm/dL Hct (34.0-46.0) % MCV (80.0-100.0) fL MCHC (31.0-37.0) g/dL Neutrophils # (1.3-7.7) k/uL Lymphocytes # (1.0-4.8) k/uL Sodium (137-145) mmol/L Chloride (98-107) mmol/L Carbon Dioxide (22-30) mmol/L BUN (7-17) mg/dL Creatinine (0.52-1.04) mg/dL Glucose (74-99) mg/dL POC Glucose (mg/dL) 71 L 33 L 109 H (75-99) mg/dL Calcium (8.4-10.2) mg/dL AST (14-36) U/L ALT (4-34) U/L Alkaline Phosphatase (38-126) U/L Total Protein (6.3-8.2) g/dL Albumin (3.5-5.0) g/dL Vitamin B12 (200.0-944.0) pg/mL 05/14/21 05/14/21 05/14/21 Range/Units 08:59 10:57 10:57 WBC 17.2 H (3.8-10.6) k/uL RBC 3.15 L (3.80-5.40) m/uL Hgb 9.6 L (11.4-16.0) gm/dL Hct 31.9 L (34.0-46.0) % MCV 101.2 H (80.0-100.0) fL MCHC 30.2 L (31.0-37.0) g/dL Neutrophils # 15.5 H (1.3-7.7) k/uL Lymphocytes # 0.8 L (1.0-4.8) k/uL Sodium (137-145) mmol/L Chloride (98-107) mmol/L Carbon Dioxide (22-30) mmol/L BUN (7-17) mg/dL Creatinine 5.26 H (0.52-1.04) mg/dL Glucose (74-99) mg/dL POC Glucose (mg/dL) 258 H (75-99) mg/dL Calcium (8.4-10.2) mg/dL AST (14-36) U/L ALT (4-34) U/L Alkaline Phosphatase (38-126) U/L Total Protein (6.3-8.2) g/dL Albumin (3.5-5.0) g/dL Vitamin B12 (200.0-944.0) pg/mL 05/14/21 Range/Units 10:57 WBC (3.8-10.6) k/uL RBC (3.80-5.40) m/uL Hgb (11.4-16.0) gm/dL Hct (34.0-46.0) % MCV (80.0-100.0) fL MCHC (31.0-37.0) g/dL Neutrophils # (1.3-7.7) k/uL Lymphocytes # (1.0-4.8) k/uL Sodium 131 L (137-145) mmol/L Chloride 95 L (98-107) mmol/L Carbon Dioxide 19 L (22-30) mmol/L BUN 43 H (7-17) mg/dL Creatinine 5.26 H (0.52-1.04) mg/dL Glucose 186 H (74-99) mg/dL POC Glucose (mg/dL) (75-99) mg/dL Calcium 8.1 L (8.4-10.2) mg/dL AST 344 H (14-36) U/L ALT 218 H (4-34) U/L Alkaline Phosphatase 164 H (38-126) U/L Total Protein 6.1 L (6.3-8.2) g/dL Albumin 3.1 L (3.5-5.0) g/dL Vitamin B12 (200.0-944.0) pg/mL Microbiology - Last 24 Hours (Table) 05/11/21 14:00 Gram Stain - Final Foot - Left Wound Culture - Final Staphylococcus aureus 05/11/21 14:00 Anaerobic Culture - Preliminary Foot - Left 05/10/21 10:15 Blood Culture - Preliminary Blood No Growth after 72 hours 05/10/21 10:30 Blood Culture - Preliminary Blood No Growth after 72 hours Assessment and Plan Assessment: 1. End-stage renal disease on hemodialysis on a Saturday schedule 2. Cellulitis/acute osteomyelitis of the left second toe with gangrenous changes status post left second toe amputation and angioplasty of the left femoral artery 3. Type 2 diabetes maintained on insulin 4. CK D mineral bone disorder 5. Peripheral vascular disease 6. Coronary artery disease 7. Mental status changes possibly related to pain medications. Expect improvement with dialysis tomorrow Plan: Hemodialysis in a.m[facility]
[2021-05-14] MEDS: LACTATED RINGERS 1,000 ML IV SCH (12:36)
--- NOTE | 2021-05-14 15:10 | P.PN ---
Subjective Progress Note Date: 05/14/21 HISTORY OF PRESENT ILLNESS This is a 76-year-old female one of my office patient with past medical history of end-stage renal disease, CVA, coronary artery disease,, diabetes mellitus type 2 insulin requiring, hypertension, hyperlipidemia, hypothyroidism, peripheral vascular disease, obstructive sleep apnea without CPAP, history of breast cancer status post radiation. Patient has recently been transitioned to HD and Dr. Nicolas or [place] 01/12/2021. Patient States That She Is Normally Saturday Dialysis and Denies Missing Any Recent Appointments. She Has a Left-Sided Port in Place and Also a Right-Sided Fistula. Patient presented with complaints of wound to the left second toe and redness to the left lower extremity been going on for extended period of time. She is established with the wound healing Center and recently on Bactrim. Patient was hospitalized 10 days ago for worsening gangrenous change of the left second toe with worsening infection in circulation. Was treated and referred to the Wound Center and vascular. Her symptoms become much worse. Patient was seen Dr. Nicolas today and found to have much worsening gangrenous change in the toe compared to last admission. White blood cell was 17 500 x-ray of the toe suggested of osteomyelitis in the middle and the distal phalanx soft tissue swelling of the third digit soft tissue change between the second and third was followed as well. The current finding patient was sent to the hospital was started on IV antibiotic at this point see infectious disease patient will be going for amputation with the vascular service over the next day or 2. 05/11: Patient was seen by vascular surgery with plan for amputation of the 2nd toe left foot today followed by lower extremity angiogram on Saturday. Patient continues to have significant pain in the left foot. She is scheduled for hemodialysis treatment today, normal days are Saturday and she missed yesterday. Patient has been afebrile, heart rate in the 60s and 70s, blood pressure 96/54, pulse ox 96% on 4 L nasal cannula. Her blood glucose running between 84 and 97. Parameters placed for amlodipine to hold if systolic blood pressure less than 120. Nephrology has added and midodrine 10 mg 3 times daily for hypotension. She is currently on IV antibiotics in form of vancomycin, Zosyn, Flagyl. 05/12: Yesterday, patient underwent imitation of left second toe at the proximal phalangeal level. Patient had event last night in which A-Team was called for confusion. Patient was oriented to self, no focal weakness. Plan was for frequent reorientation. Confusion thought to be related to medications and hospitalization. This morning, is at bedside. He is concerned about her confusion, consult added for neurology. Updated that she would be best served to go home to her own environment as soon as possible. He does have family issues and will not be oh to take her home until Saturday. Blood cultures are showing no growth at 24 hours 2, wound culture is in progress. shift manager has arranged for [facility]. 42: patient is doing well today continue to have slight pain and discomfort in the left foot, she is going for dialysis today. Patient was seen urology for possible new CVA review CAT scan showed bilateral lacunar infarct in bilateral thalamus area and patient ended up being recommended to go for an MRI of the brain to rule out acute versus subacute ischemic event with recommendation to do 2-D echo along with carotid ultrasound. 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 Still plan if patient is stable to be discharged either tomorrow or on Saturday after her MRIs done specially if it's clear by vascular surgery. 3: Patient is more confused today has been having more trouble complaining of worsening shortness of breath her oxygen saturation has been normal no sign of chest pain or angina, patient is more confused and agitated has taking off 2 her for IV not able to keep any attachment of her body. Her foot is doing slightly but better. A found the and the stepdaughter and the bedside long discussion again today apparently family are not able to care of the patient at home need to make an arrangement for her to go to subacute rehab and probably to look into longer term care at some point. The meanwhile apparently patient was in [facility] [place] in the past in the hospital and see if she will be accepted for rehab and management. REVIEW OF SYSTEMS Constitutional: No fever, no chills, no night sweats. No weight change. No weakness, fatigue or lethargy. No daytime sleepiness. EENT: No headache. No blurred vision or double vision, no loss of vision. No loss of Hearing, no ringing in the ears, no dizziness. No nasal drainage or congestion. No epistaxis. No sore throat. Lungs: No shortness of breath, cough, no sputum production. No wheezing. Cardiovascular: No chest pain, no lower extremity edema. No palpitations. No paroxysmal nocturnal dyspnea. No orthopnea. No lightheadedness or dizziness. No syncopal episodes. Abdominal: No abdominal pain. No nausea, vomiting. No diarrhea. No constipation. No bloody or tarry stools. No loss of appetite. Genitourinary: No dysuria, increased frequency, urgency. No urinary retention. Musculoskeletal: No myalgias. No muscle weakness, no gait dysfunction, no frequent falls. No back pain. No neck pain. Reports pain in the left foot. Integumentary: Reported left toe wounds, no lesions. No rash or pruritus. No unusual bruising. No change in hair or nails. Neurologic: No aphasia. No facial droop. Noted change in mentation. No head injury. No headache. No paralysis. No paresthesia. Psychiatric: No depression. No anxiety. No mood swings. Endocrine: Noted abnormal blood sugars. No weight change. No excessive sweating or thirst. No cold intolerance. PHYSICAL EXAMINATION Gen: This is a 76-year-old female. Patient is resting in the ER stretcher and appears to be comfortable and in no acute distress. HEENT: Head is atraumatic, normocephalic. Pupils equal, round. Sclerae is anicteric. NECK: Supple. No JVD. No lymphadenopathy. No thyromegaly. LUNGS: Clear to auscultation. No wheezes or rhonchi. No intercostal retractions. HEART: Regular rate and rhythm. No murmur. ABDOMEN: Soft. Bowel sounds are present. No masses. No tenderness. EXTREMITIES: No pedal edema. No calf tenderness. Necrotic tissue to the left second toe. NEUROLOGICAL: Patient is awake, alert and oriented x3. Cranial nerves 2 through 12 are grossly intact. ASSESSMENT AND PLAN 1. Acute osteomyelitis of the left second toe with gangrenous change. Status post amputation of left second toe 05/11. doing better so far still on antibiotics. 2 severe PAD: Post balloon angioplasty of the left superficial femoral artery, patient will remain on dual antiplatelet agent. Teri 5 peripheral arterial disease: post angioplasty and stent placement of the left superficial femoral artery remain on dual antiplatelet agent and aspirin 3. Worsening confusion and change mental status with worsening dementia, patient was started on Seroquel 25 g twice a day we'll consult social media marketer for possible transfer to subacute rehab. 4. Diabetes mellitus type 2 insulin requiring. Had mild hypoglycemia today Levemir was held patient is doing sliding scales only. 5. Coronary artery disease: Has been seen cardiology regularly no chest pain or angina at this point. 6. History of CVA with short-term memory deficit. still have quite bit residual this point workup done by neurology showed potential of subacute with acute stroke she's been ago for an MRI of the brain the meanwhile carotid and echo is done patient is going for an EEG as well. 7. End-stage renal disease on hemodialysis Saturday. 8. Hypertension: Continue patient on amlodipine 2.5 mg twice a day with parameters along with metoprolol titrate 50 mg twice a day. Midodrine 10 mg 3 times daily as needed added by nephrology. 9. Hyperlipidemia: Still on atorvastatin 20 mg daily. 10. Hypothyroidism: Remain on levothyroxine 75 g a day. 11. History of obstructive sleep apnea not utilizing CPAP. 12. History of breast cancer status post radiation, stable. 13. Acute delirium most likely secondary to hospitalization, medications, change in environment. Concern for possible underlying dementia. Reorientati on, consult with neurology. discharge planning: Possibly to subacute rehab Saturday after her MRI is complete. Objective - Vital Signs Vital signs: Vital Signs Temp 96.9 F L 05/14/21 12:00 Pulse 54 L 05/14/21 12:00 Resp 18 05/14/21 12:00 BP 94/60 05/14/21 12:00 Pulse Ox 100 05/14/21 12:00 Intake & Output 05/13/21 05/14/21 05/14/21 18:59 06:59 18:59 Intake Total 460 250 410 Output Total 1000 0 Balance -540 250 410 Intake: IV 100 150 Invasive Line 4 50 metroNIDAZOLE-NS PMX 500 100 100 mg In Saline 1 100ml.bag @ 100 mls/hr IVPB Q8HR NAN Rx#:[id number] Oral 360 250 260 Output: Stool 0 Hemodialysis 1000 Other: # Voids 1 0 - Labs CBC & Chem 7: 05/14/21 10:57 05/14/21 10:57 Labs: Abnormal Lab Results - Last 24 Hours (Table) 05/13/21 05/13/21 05/14/21 Range/Units 17:00 20:04 06:11 WBC (3.8-10.6) k/uL RBC (3.80-5.40) m/uL Hgb (11.4-16.0) gm/dL Hct (34.0-46.0) % MCV (80.0-100.0) fL MCHC (31.0-37.0) g/dL Neutrophils # (1.3-7.7) k/uL Lymphocytes # (1.0-4.8) k/uL Sodium (137-145) mmol/L Chloride (98-107) mmol/L Carbon Dioxide (22-30) mmol/L BUN (7-17) mg/dL Creatinine (0.52-1.04) mg/dL Glucose (74-99) mg/dL POC Glucose (mg/dL) 161 H 127 H 67 L (75-99) mg/dL Calcium (8.4-10.2) mg/dL AST (14-36) U/L ALT (4-34) U/L Alkaline Phosphatase (38-126) U/L Total Protein (6.3-8.2) g/dL Albumin (3.5-5.0) g/dL 05/14/21 05/14/21 05/14/21 Range/Units 06:30 06:59 07:39 WBC (3.8-10.6) k/uL RBC (3.80-5.40) m/uL Hgb (11.4-16.0) gm/dL Hct (34.0-46.0) % MCV (80.0-100.0) fL MCHC (31.0-37.0) g/dL Neutrophils # (1.3-7.7) k/uL Lymphocytes # (1.0-4.8) k/uL Sodium (137-145) mmol/L Chloride (98-107) mmol/L Carbon Dioxide (22-30) mmol/L BUN (7-17) mg/dL Creatinine (0.52-1.04) mg/dL Glucose (74-99) mg/dL POC Glucose (mg/dL) 56 L 71 L 33 L (75-99) mg/dL Calcium (8.4-10.2) mg/dL AST (14-36) U/L ALT (4-34) U/L Alkaline Phosphatase (38-126) U/L Total Protein (6.3-8.2) g/dL Albumin (3.5-5.0) g/dL 05/14/21 05/14/21 05/14/21 Range/Units 07:48 08:59 10:57 WBC (3.8-10.6) k/uL RBC (3.80-5.40) m/uL Hgb (11.4-16.0) gm/dL Hct (34.0-46.0) % MCV (80.0-100.0) fL MCHC (31.0-37.0) g/dL Neutrophils # (1.3-7.7) k/uL Lymphocytes # (1.0-4.8) k/uL Sodium (137-145) mmol/L Chloride (98-107) mmol/L Carbon Dioxide (22-30) mmol/L BUN (7-17) mg/dL Creatinine 5.26 H (0.52-1.04) mg/dL Glucose (74-99) mg/dL POC Glucose (mg/dL) 109 H 258 H (75-99) mg/dL Calcium (8.4-10.2) mg/dL AST (14-36) U/L ALT (4-34) U/L Alkaline Phosphatase (38-126) U/L Total Protein (6.3-8.2) g/dL Albumin (3.5-5.0) g/dL 05/14/21 05/14/21 05/14/21 Range/Units 10:57 10:57 11:34 WBC 17.2 H (3.8-10.6) k/uL RBC 3.15 L (3.80-5.40) m/uL Hgb 9.6 L (11.4-16.0) gm/dL Hct 31.9 L (34.0-46.0) % MCV 101.2 H (80.0-100.0) fL MCHC 30.2 L (31.0-37.0) g/dL Neutrophils # 15.5 H (1.3-7.7) k/uL Lymphocytes # 0.8 L (1.0-4.8) k/uL Sodium 131 L (137-145) mmol/L Chloride 95 L (98-107) mmol/L Carbon Dioxide 19 L (22-30) mmol/L BUN 43 H (7-17) mg/dL Creatinine 5.26 H (0.52-1.04) mg/dL Glucose 186 H (74-99) mg/dL POC Glucose (mg/dL) 208 H (75-99) mg/dL Calcium 8.1 L (8.4-10.2) mg/dL AST 344 H (14-36) U/L ALT 218 H (4-34) U/L Alkaline Phosphatase 164 H (38-126) U/L Total Protein 6.1 L (6.3-8.2) g/dL Albumin 3.1 L (3.5-5.0) g/dL Microbiology - Last 24 Hours (Table) 05/10/21 10:30 Blood Culture - Preliminary Blood No Growth after 96 hours 05/10/21 10:15 Blood Culture - Preliminary Blood No Growth after 96 hours 05/11/21 14:00 Gram Stain - Final Foot - Left Wound Culture - Final Staphylococcus aureus 05/11/21 14:00 Anaerobic Culture - Preliminary Foot - Left
[2021-05-14] MEDS: Acetaminophen-Codeine 300-30mg TAB PO PRN ×2 (15:25→22:39)
[2021-05-14] MEDS: QUEtiapine 25 MG TAB PO SCH ×2 (15:25→20:22)
[2021-05-14] MEDS: MIDODRINE 5 MG TAB PO PRN (15:25)
[2021-05-14 16:38] LABS: Glucose,Whole Blood 144 mg/dL (75-99)
[2021-05-14 19:00] LABS: Glucose,Whole Blood 135 mg/dL (75-99)
[2021-05-14 20:09] LABS: Glucose,Whole Blood 133 mg/dL (75-99)
[2021-05-14] MEDS: ATORVASTATIN 20 MG TAB PO SCH (20:22)
[2021-05-15] MEDS: metroNIDAZOLE-NS PMX 500 MG in SALINE 1 100ML.BAG IVPB SCH ×2 (00:27→09:58)
[2021-05-15 01:12] LABS: Glucose,Whole Blood 173 mg/dL (75-99)
[2021-05-15 06:04] LABS: Glucose,Whole Blood 158 mg/dL (75-99)
[2021-05-15] MEDS: INSULIN ASPART (NovoLOG) 100 UNIT/ML VIAL SQ SCH (06:30)
[2021-05-15] MEDS: LEVOTHYROXINE 75 MCG TAB PO SCH (06:58)
[2021-05-15] MEDS: SEVELAMER 800 MG TAB PO SCH (06:58)
[2021-05-15 09:02] VITALS: BP 127/61; PULSE 68; RESP 19; TEMP 98
--- NOTE | 2021-05-15 09:34 | P.PN ---
Subjective Progress Note Date: 05/15/21 She is seen and examined lying in bed. She is somewhat confused with a soft restraint. No acute changes through the night. She remains afebrile. Objective - Vital Signs Vital signs: Vital Signs Temp 98.0 F 05/15/21 08:30 Pulse 68 05/15/21 08:30 Resp 19 05/15/21 08:30 BP 127/61 05/15/21 08:30 Pulse Ox 96 05/15/21 08:30 Intake & Output 05/14/21 05/15/21 05/15/21 18:59 06:59 18:59 Intake Total 840 130 Output Total 0 Balance 840 130 Intake: IV 360 130 Invasive Line 4 60 30 metroNIDAZOLE-NS PMX 500 300 100 mg In Saline 1 100ml.bag @ 100 mls/hr IVPB Q8HR [facility] Rx#:[id number] Oral 480 Output: Stool 0 Other: Voiding Method External Catheter # Voids 0 - Exam General appearance: The patient is drowsy, seems confused, alert to self, appears in no acute distress. HET: Head is normocephalic and atraumatic. Neck: Supple without lymphadenopathy. Trachea midline. Abdomen: Soft, nontender, nondistended. Extremities: Left lower extremity warm to the touch, good capillary refill left second toe amputation site with minimal drainage, packed with iodoform, well approximated with sutures. Neurological: Infused, oriented 1. - Labs CBC & Chem 7: 05/14/21 10:57 05/14/21 10:57 Labs: Abnormal Lab Results - Last 24 Hours (Table) 05/14/21 05/14/21 05/14/21 Range/Units 10:57 10:57 10:57 WBC 17.2 H (3.8-10.6) k/uL RBC 3.15 L (3.80-5.40) m/uL Hgb 9.6 L (11.4-16.0) gm/dL Hct 31.9 L (34.0-46.0) % MCV 101.2 H (80.0-100.0) fL MCHC 30.2 L (31.0-37.0) g/dL Neutrophils # 15.5 H (1.3-7.7) k/uL Lymphocytes # 0.8 L (1.0-4.8) k/uL Sodium 131 L (137-145) mmol/L Chloride 95 L (98-107) mmol/L Carbon Dioxide 19 L (22-30) mmol/L BUN 43 H (7-17) mg/dL Creatinine 5.26 H 5.26 H (0.52-1.04) mg/dL Glucose 186 H (74-99) mg/dL POC Glucose (mg/dL) (75-99) mg/dL Calcium 8.1 L (8.4-10.2) mg/dL AST 344 H (14-36) U/L ALT 218 H (4-34) U/L Alkaline Phosphatase 164 H (38-126) U/L Total Protein 6.1 L (6.3-8.2) g/dL Albumin 3.1 L (3.5-5.0) g/dL 05/14/21 05/14/21 05/14/21 Range/Units 11:34 16:37 18:58 WBC (3.8-10.6) k/uL RBC (3.80-5.40) m/uL Hgb (11.4-16.0) gm/dL Hct (34.0-46.0) % MCV (80.0-100.0) fL MCHC (31.0-37.0) g/dL Neutrophils # (1.3-7.7) k/uL Lymphocytes # (1.0-4.8) k/uL Sodium (137-145) mmol/L Chloride (98-107) mmol/L Carbon Dioxide (22-30) mmol/L BUN (7-17) mg/dL Creatinine (0.52-1.04) mg/dL Glucose (74-99) mg/dL POC Glucose (mg/dL) 208 H 144 H 135 H (75-99) mg/dL Calcium (8.4-10.2) mg/dL AST (14-36) U/L ALT (4-34) U/L Alkaline Phosphatase (38-126) U/L Total Protein (6.3-8.2) g/dL Albumin (3.5-5.0) g/dL 05/14/21 05/15/21 05/15/21 Range/Units 20:06 01:01 06:01 WBC (3.8-10.6) k/uL RBC (3.80-5.40) m/uL Hgb (11.4-16.0) gm/dL Hct (34.0-46.0) % MCV (80.0-100.0) fL MCHC (31.0-37.0) g/dL Neutrophils # (1.3-7.7) k/uL Lymphocytes # (1.0-4.8) k/uL Sodium (137-145) mmol/L Chloride (98-107) mmol/L Carbon Dioxide (22-30) mmol/L BUN (7-17) mg/dL Creatinine (0.52-1.04) mg/dL Glucose (74-99) mg/dL POC Glucose (mg/dL) 133 H 173 H 158 H (75-99) mg/dL Calcium (8.4-10.2) mg/dL AST (14-36) U/L ALT (4-34) U/L Alkaline Phosphatase (38-126) U/L Total Protein (6.3-8.2) g/dL Albumin (3.5-5.0) g/dL Microbiology - Last 24 Hours (Table) 05/10/21 10:30 Blood Culture - Preliminary Blood No Growth after 96 hours 05/10/21 10:15 Blood Culture - Preliminary Blood No Growth after 96 hours Assessment and Plan Assessment: 1. Postop day #3/4. Second toe amputation and balloon dilation of the left SFA 2. Gangrene of left second toe 3. [place] 5 peripheral arterial disease 4. Diabetes mellitus 5. End-stage renal disease on hemodialysis 6. Coronary artery disease 7. COPD 8. Hypertension, hyperlipidemia Plan: 1. Daily dressing change left second toe amputation site with iodoform packing and Kerlix 2. Continue supportive care, no changes from vascular surgical standpoint. Thank you for this consultation, we will continue to follow. The impression and plan of care has been dictated as directed. Dr. Maria I performed a history and examination of this patient, discussed the same with the dictator. I agree with the dictator's note ,documented as a scribe. Any additional findings or plans will be noted.
[2021-05-15] MEDS: INSULIN DETEMIR (LEVEMIR) 100 UNIT/ML SYR SQ SCH (09:57)
[2021-05-15] MEDS: RIVASTIGMINE 4.6MG/24HR PATCH TRANSDERM SCH (09:58)
[2021-05-15] MEDS: ASPIRIN 81 MG PO SCH (09:58)
[2021-05-15] MEDS: QUEtiapine 25 MG TAB PO SCH (09:59)
[2021-05-15] MEDS: PANTOPRAZOLE 40 MG TABLET PO SCH (09:59)
[2021-05-15] MEDS: METOPROLOL TARTRATE 50 MG TAB PO SCH (09:59)
--- NOTE | 2021-05-15 14:04 | P.PN ---
Subjective Progress Note Date: 05/15/21 HISTORY OF PRESENT ILLNESS This is a 76-year-old female one of my office patient with past medical history of end-stage renal disease, CVA, coronary artery disease,, diabetes mellitus type 2 insulin requiring, hypertension, hyperlipidemia, hypothyroidism, peripheral vascular disease, obstructive sleep apnea without CPAP, history of breast cancer status post radiation. Patient has recently been transitioned to HD and Dr. Nicolas or [place] 01/12/2021. Patient States That She Is Normally Saturday Dialysis and Denies Missing Any Recent Appointments. She Has a Left-Sided Port in Place and Also a Right-Sided Fistula. Patient presented with complaints of wound to the left second toe and redness to the left lower extremity been going on for extended period of time. She is established with the wound healing Center and recently on Bactrim. Patient was hospitalized 10 days ago for worsening gangrenous change of the left second toe with worsening infection in circulation. Was treated and referred to the [facility] Center and vascular. Her symptoms become much worse. Patient was seen Dr. Nicolas today and found to have much worsening gangrenous change in the toe compared to last admission. White blood cell was 17 500 x-ray of the toe suggested of osteomyelitis in the middle and the distal phalanx soft tissue swelling of the third digit soft tissue change between the second and third was followed as well. The current finding patient was sent to the hospital was started on IV antibiotic at this point see infectious disease patient will be going for amputation with the vascular service over the next day or 2. 05/11: Patient was seen by vascular surgery with plan for amputation of the 2nd toe left foot today followed by lower extremity angiogram on Saturday. Patient continues to have significant pain in the left foot. She is scheduled for hemodialysis treatment today, normal days are Saturday and she missed yesterday. Patient has been afebrile, heart rate in the 60s and 70s, blood pressure 96/54, pulse ox 96% on 4 L nasal cannula. Her blood glucose running between 84 and 97. Parameters placed for amlodipine to hold if systolic blood pressure less than 120. Nephrology has added and midodrine 10 mg 3 times daily for hypotension. She is currently on IV antibiotics in form of vancomycin, Zosyn, Flagyl. 05/12: Yesterday, patient underwent imitation of left second toe at the proximal phalangeal level. Patient had event last night in which A-Team was called for confusion. Patient was oriented to self, no focal weakness. Plan was for frequent reorientation. Confusion thought to be related to medications and hospitalization. This morning, is at bedside. He is concerned about her confusion, consult added for neurology. Updated that she would be best served to go home to her own environment as soon as possible. He does have family issues and will not be oh to take her home until Saturday. Blood cultures are showing no growth at 24 hours 2, wound culture is in progress. social media manager has arranged for [place] home care services. 4/2: patient is doing well today continue to have slight pain and discomfort in the left foot, she is going for dialysis today. Patient was seen urology for possible new CVA review CAT scan showed bilateral lacunar infarct in bilateral thalamus area and patient ended up being recommended to go for an MRI of the brain to rule out acute versus subacute ischemic event with recommendation to do 2-D echo along with carotid ultrasound. 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 Still plan if patient is stable to be discharged either tomorrow or on Saturday after her MRIs done specially if it's clear by vascular surgery. 4/3: Patient is more confused today has been having more trouble complaining of worsening shortness of breath her oxygen saturation has been normal no sign of chest pain or angina, patient is more confused and agitated has taking off 2 her for IV not able to keep any attachment of her body. Her foot is doing slightly but better. A found the and the stepdaughter and the bedside long discussion again today apparently family are not able to care of the patient at home need to make an arrangement for her to go to subacute rehab and probably to look into longer term care at some point. The meanwhile apparently patient was in [facility] [place] in the past in the hospital and see if she will be accepted for rehab and management. 44: Patient is completely confused today. EEG and MRI of the brain canceled. It is expected patient will get hemodialysis today. Discussed in detail patient's condition, prognosis with the patient's . Discussed hospice care and option of going to the hospice home. Patient's would like to discuss options with the family and if everyone is in agreement, transition to hospice care. REVIEW OF SYSTEMS Significant confusion PHYSICAL EXAMINATION Gen: This is a 76-year-old female. Patient is resting in bed and appears to be quite agitated and in distress. HEENT: Head is atraumatic, normocephalic. Pupils equal, round. Sclerae is anict janae. NECK: Supple. No JVD. No lymphadenopathy. No thyromegaly. LUNGS: Clear to auscultation. No wheezes or rhonchi. No intercostal retractions. HEART: Regular rate and rhythm. No murmur. ABDOMEN: Soft. Bowel sounds are present. No masses. No tenderness. EXTREMITIES: No pedal edema. No calf tenderness. Dressing in place to the left foot NEUROLOGICAL: Patient is awake, alert and oriented 0. Moving all extremities. ASSESSMENT AND PLAN 1. Acute osteomyelitis of the left second toe with gangrenous change. Status post amputation of left second toe 05/11. 2 severe PAD: Post balloon angioplasty of the left superficial femoral artery. 3. Metabolic encephalopathy secondary to sepsis and worsening dementia. 4. Diabetes mellitus type 2 insulin requiring. 5. Coronary artery disease 6. History of CVA with short-term memory deficit. 7. End-stage renal disease on hemodialysis Saturday. 8. Hypertension 9. Hyperlipidemia 10. Hypothyroidism 11. History of obstructive sleep apnea not utilizing CPAP. 12. History of breast cancer status post radiation, stable. 13. Acute delirium most likely secondary to hospitalization, medications, ch angelica in environment. PLAN: Hospice to meet with patient's family. Patient will be transitioned to inpatient hospice GIP if appropriate. Impression and plan of care have been directed as dictated by the signing physician. Chula Perdomo nurse practitioner acting as scribe for signing physician. Objective - Vital Signs Vital signs: Vital Signs Temp 98.0 F 05/15/21 08:30 Pulse 68 05/15/21 08:30 Resp 19 05/15/21 08:30 BP 127/61 05/15/21 08:30 Pulse Ox 96 05/15/21 08:30 Intake & Output 05/14/21 05/15/21 05/15/21 18:59 06:59 18:59 Intake Total 840 130 Output Total 0 Balance 840 130 Intake: IV 360 130 Invasive Line 4 60 30 metroNIDAZOLE-NS PMX 500 300 100 mg In Saline 1 100ml.bag @ 100 mls/hr IVPB Q8HR [facility] Rx#:[id number] Oral 480 Output: Stool 0 Other: Voiding Method External Catheter # Voids 0 - Labs CBC & Chem 7: 05/14/21 10:57 05/14/21 10:57 Labs: Abnormal Lab Results - Last 24 Hours (Table) 05/14/21 05/14/21 05/14/21 Range/Units 10:57 10:57 10:57 WBC 17.2 H (3.8-10.6) k/uL RBC 3.15 L (3.80-5.40) m/uL Hgb 9.6 L (11.4-16.0) gm/dL Hct 31.9 L (34.0-46.0) % MCV 101.2 H (80.0-100.0) fL MCHC 30.2 L (31.0-37.0) g/dL Neutrophils # 15.5 H (1.3-7.7) k/uL Lymphocytes # 0.8 L (1.0-4.8) k/uL Sodium 131 L (137-145) mmol/L Chloride 95 L (98-107) mmol/L Carbon Dioxide 19 L (22-30) mmol/L BUN 43 H (7-17) mg/dL Creatinine 5.26 H 5.26 H (0.52-1.04) mg/dL Glucose 186 H (74-99) mg/dL POC Glucose (mg/dL) (75-99) mg/dL Calcium 8.1 L (8.4-10.2) mg/dL AST 344 H (14-36) U/L ALT 218 H (4-34) U/L Alkaline Phosphatase 164 H (38-126) U/L Total Protein 6.1 L (6.3-8.2) g/dL Albumin 3.1 L (3.5-5.0) g/dL 05/14/21 05/14/21 05/14/21 Range/Units 11:34 16:37 18:58 WBC (3.8-10.6) k/uL RBC (3.80-5.40) m/uL Hgb (11.4-16.0) gm/dL Hct (34.0-46.0) % MCV (80.0-100.0) fL MCHC (31.0-37.0) g/dL Neutrophils # (1.3-7.7) k/uL Lymphocytes # (1.0-4.8) k/uL Sodium (137-145) mmol/L Chloride (98-107) mmol/L Carbon Dioxide (22-30) mmol/L BUN (7-17) mg/dL Creatinine (0.52-1.04) mg/dL Glucose (74-99) mg/dL POC Glucose (mg/dL) 208 H 144 H 135 H (75-99) mg/dL Calcium (8.4-10.2) mg/dL AST (14-36) U/L ALT (4-34) U/L Alkaline Phosphatase (38-126) U/L Total Protein (6.3-8.2) g/dL Albumin (3.5-5.0) g/dL 05/14/21 05/15/21 05/15/21 Range/Units 20:06 01:01 06:01 WBC (3.8-10.6) k/uL RBC (3.80-5.40) m/uL Hgb (11.4-16.0) gm/dL Hct (34.0-46.0) % MCV (80.0-100.0) fL MCHC (31.0-37.0) g/dL Neutrophils # (1.3-7.7) k/uL Lymphocytes # (1.0-4.8) k/uL Sodium (137-145) mmol/L Chloride (98-107) mmol/L Carbon Dioxide (22-30) mmol/L BUN (7-17) mg/dL Creatinine (0.52-1.04) mg/dL Glucose (74-99) mg/dL POC Glucose (mg/dL) 133 H 173 H 158 H (75-99) mg/dL Calcium (8.4-10.2) mg/dL AST (14-36) U/L ALT (4-34) U/L Alkaline Phosphatase (38-126) U/L Total Protein (6.3-8.2) g/dL Albumin (3.5-5.0) g/dL Microbiology - Last 24 Hours (Table) 05/10/21 10:30 Blood Culture - Preliminary Blood No Growth after 96 hours 05/10/21 10:15 Blood Culture - Preliminary Blood No Growth after 96 hours
[2021-05-15] MEDS ORDERED: VANCOMYCIN 1,500 MG in SODIUM CHLORIDE 0.9% 250 ML IVPB ONE (18:00)
--- NOTE | 2021-05-16 10:46 | P.DS ---
Providers Date of admission: 05/10/21 11:38 Expected date of discharge: 05/16/21 Attending physician: Luis Lira Consults: 05/10/21 09:58 Consult Physician Urgent Consulting Provider: Ephraim Srivastava Consult Reason/Comments: Dialysis Do you want consulting provider notified?: Yes 05/10/21 09:59 Consult Physician Urgent Consulting Provider: Sally Nicolas Consult Reason/Comments: Diabetic foot infection, gangrenous toe Do you want consulting provider notified?: Yes 05/12/21 10:31 Consult Physician Routine Consulting Provider: Lauri Rojo Consult Reason/Comments: increased confusion Do you want consulting provider notified?: Yes Primary care physician: Luis Lira [place] [employer] [facility] Course: HISTORY OF PRESENT ILLNESS This is a 76-year-old female one of my office patient with past medical history of end-stage renal disease, CVA, coronary artery disease,, diabetes mellitus type 2 insulin requiring, hypertension, hyperlipidemia, hypothyroidism, peripheral vascular disease, obstructive sleep apnea without CPAP, history of breast cancer status post radiation. Patient has recently been transitioned to HD and Dr. Nicolas or [place] 01/12/2021. Patient States That She Is Normally Saturday Dialysis and Denies Missing Any Recent Appointments. She Has a Left-Sided Port in Place and Also a Right-Sided Fistula. Patient presented with complaints of wound to the left second toe and redness to the left lower extremity been going on for extended period of time. She is established with the wound healing Center and recently on Bactrim. Patient was hospitalized 10 days ago for worsening gangrenous change of the left second toe with worsening infection in circulation. Was treated and referred to the Wound Center and vascular. Her symptoms become much worse. Patient was seen Dr. Nicolas today and found to have much worsening gangrenous change in the toe compared to last admission. White blood cell was 17 500 x-ray of the toe suggested of osteomyelitis in the middle and the distal phalanx soft tissue swelling of the third digit soft tissue change between the second and third was followed as well. The current finding patient was sent to the hospital was started on IV antibiotic at this point see infectious disease patient will be going for amputation with the vascular service over the next day or 2. 05/11: Patient was seen by vascular surgery with plan for amputation of the 2nd toe left foot today followed by lower extremity angiogram on Saturday. Patient continues to have significant pain in the left foot. She is scheduled for hemodialysis treatment today, normal days are Saturday and she missed yesterday. Patient has been afebrile, heart rate in the 60s and 70s, blood pressure 96/54, pulse ox 96% on 4 L nasal cannula. Her blood glucose running between 84 and 97. Parameters placed for amlodipine to hold if systolic blood pressure less than 120. Nephrology has added and midodrine 10 mg 3 times daily for hypotension. She is currently on IV antibiotics in form of vancomycin, Zosyn, Flagyl. 05/12: Yesterday, patient underwent imitation of left second toe at the proximal phalangeal level. Patient had event last night in which A-Team was called for confusion. Patient was oriented to self, no focal weakness. Plan was for frequent reorientation. Confusion thought to be related to medications and hospitalization. This morning, is at bedside. He is concerned about her confusion, consult added for neurology. Updated that she would be best served to go home to her own environment as soon as possible. He does have family issues and will not be oh to take her home until Saturday. Blood cultures are showing no growth at 24 hours 2, wound culture is in progress. manager lpn has arranged for [facility] services. 05/13: patient is doing well today continue to have slight pain and discomfort in the left foot, she is going for dialysis today. Patient was seen urology for possible new CVA review CAT scan showed bilateral lacunar infarct in bilateral thalamus area and patient ended up being recommended to go for an MRI of the brain to rule out acute versus subacute ischemic event with recommendation to do 2-D echo along with carotid ultrasound. 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 Still plan if patient is stable to be discharged either tomorrow or on Saturday after her MRIs done specially if it's clear by vascular surgery. 3: Patient is more confused today has been having more trouble complaining of worsening shortness of breath her oxygen saturation has been normal no sign of chest pain or angina, patient is more confused and agitated has taking off 2 her for IV not able to keep any attachment of her body. Her foot is doing slightly but better. A found the and the stepdaughter and the bedside long discussion again today apparently family are not able to care of the patient at home need to make an arrangement for her to go to subacute rehab and probably to look into longer term care at some point. The meanwhile apparently patient was in [facility] [place] in the past in the hospital and see if she will be accepted for rehab and management. 05/15: Patient is completely confused today. EEG and MRI of the brain canceled. It is expected patient will get hemodialysis today. Discussed in detail patient's condition, prognosis with the patient's . Discussed hospice care and option of going to the hospice home. Patient's would like to discuss options with the family and if everyone is in agreement, transition to hospice care. 05/16: Patient on the morning of 05/16. Please see nursing documentation for details. DISCHARGE DIAGNOSES 1. Acute osteomyelitis of the left second toe with gangrenous change and sepsis. Status post amputation of left second toe 05/11. 2 Severe PAD: Post balloon angioplasty of the left superficial femoral artery. 3. Metabolic encephalopathy secondary to sepsis and worsening dementia. 4. Diabetes mellitus type 2 insulin requiring. 5. Coronary artery disease 6. History of CVA with short-term memory deficit. 7. End-stage renal disease on hemodialysis Saturday. 8. Hypertension 9. Hyperlipidemia 10. Hypothyroidism 11. History of obstructive sleep apnea not utilizing CPAP. 12. History of breast cancer status post radiation, stable. 13. Acute delirium most likely secondary to hospitalization, medications, change in environment. Impression and plan of care have been directed as dictated by the signing physician. Chula Perdomo nurse practitioner acting as scribe for signing physician. Patient Condition at Discharge: Undetermined Plan - Discharge Summary Discharge Rx Participant: No New Discharge Prescriptions: No Action Aspirin [Adult Low Dose Aspirin EC] 81 mg PO DAILY Clopidogrel [Plavix] 75 mg PO DAILY Docusate [Colace] 100 mg PO DAILY PRN PRN Reason: Constipation Insulin Aspart [NovoLOG Flexpen] See Protocol SQ ACHS PRN PRN Reason: Blood Sugar - High Ondansetron [Zofran] 4 mg PO DAILY PRN PRN Reason: Nausea And Vomiting Rivastigmine 4.6MG/24Hr Patch [Exelon 4.6MG/24Hr Patch] 1 patch TRANSDERM Q24HR Lidocaine-Prilocaine Cream [Emla Cream 2.5%/2.5%] 1 applic TOPICAL MOWEFR PRN PRN Reason: avf access Triphrocaps 1 cap PO HS Acetaminophen [Tylenol] 650 mg PO Q4H PRN PRN Reason: Pain amLODIPine [Norvasc] 2.5 mg PO BID Diphenoxylate HCl/Atropine [Lomotil 2.5-0.025 mg Tablet] 1 tab PO BID PRN PRN Reason: Diarrhea Insulin Degludec [Tresiba] 16 units SQ DAILY Levothyroxine Sodium [Synthroid] 75 mcg PO DAILY Metoprolol Tartrate [Lopressor] 50 mg PO BID Pantoprazole [Protonix] 40 mg PO DAILY Prochlorperazine [Compazine] 10 mg PO Q8H PRN PRN Reason: Nausea Rosuvastatin [Crestor] 10 mg PO HS Nitroglycerin 0.4 mg SL Q5M PRN PRN Reason: Chest Pain Sevelamer [Renvela] 1,600 mg PO TID-W/MEALS Acetaminophen-Codeine 300-30mg [Tylenol w/codeine #3] 1 tab PO Q6H PRN PRN Reason: Pain Discharge Medication List Acetaminophen [Tylenol] 650 mg PO Q4H PRN 01/11/21 [History] Aspirin [Adult Low Dose Aspirin EC] 81 mg PO DAILY 01/11/21 [History] Clopidogrel [Plavix] 75 mg PO DAILY 01/11/21 [History] Diphenoxylate HCl/Atropine [Lomotil 2.5-0.025 mg Tablet] 1 tab PO BID PRN 01/11/21 [History] Docusate [Colace] 100 mg PO DAILY PRN 01/11/21 [History] Insulin Aspart [NovoLOG Flexpen] See Protocol SQ ACHS PRN 01/11/21 [History] Insulin Degludec [Tresiba] 16 units SQ DAILY 01/11/21 [History] Levothyroxine Sodium [Synthroid] 75 mcg PO DAILY 01/11/21 [History] Metoprolol Tartrate [Lopressor] 50 mg PO BID 01/11/21 [History] Nitroglycerin 0.4 mg SL Q5M PRN 01/11/21 [History] Ondansetron [Zofran] 4 mg PO DAILY PRN 01/11/21 [History] Pantoprazole [Protonix] 40 mg PO DAILY 01/11/21 [History] Prochlorperazine [Compazine] 10 mg PO Q8H PRN 01/11/21 [History] Rivastigmine 4.6MG/24Hr Patch [Exelon 4.6MG/24Hr Patch] 1 patch TRANSDERM Q24HR 01/11/21 [History] Rosuvastatin [Crestor] 10 mg PO HS 01/11/21 [History] Triphrocaps 1 cap PO HS 01/11/21 [History] amLODIPine [Norvasc] 2.5 mg PO BID 01/11/21 [History] Acetaminophen-Codeine 300-30mg [Tylenol w/codeine #3] 1 tab PO Q6H PRN 05/10/21 [History] Lidocaine-Prilocaine Cream [Emla Cream 2.5%/2.5%] 1 applic TOPICAL MOWEFR PRN 05/10/21 [History] Sevelamer [Renvela] 1,600 mg PO TID-W/MEALS 05/10/21 [History] Follow up Appointment(s)/Referral(s): Luis Lira MD [Primary Care Provider] - 1-2 days Care,Ivelisse Griggs [NON-STAFF] - As Needed Discharge Disposition: DISCH TO HOSPICE MED FACILTY - Preliminary Cause of Preliminary Cause of : Acute osteomyelitis of the left second toe with gangrenous change and sepsi
--- NOTE | 2021-05-17 09:22 | CDI ---
Documentation Clarification Form Date: 05/17/2021 09:14:28 AM From: Gumaro Engel Admit Date: 05/10/2021 11:38:00 AM Patient Name: Arielle Thomas Visit Number: [id number] Discharge Date: 05/15/2021 10:45:00 AM ATTENTION: The Clinical Documentation Specialists (CDI) and [facility] Coding Staff appreciate your assistance in clarifying documentation. Please respond to the clarification below the line at the bottom and electronically sign. The CDI & [facility] Coding staff will review the response and follow-up if needed. Please note: Queries are made part of the Legal Health Record. If you have any questions, please contact the author of this message via ITS. Dr. Luis Lira Sepsis is documented in the discharge summary and progress note 05/15. For each diagnosis, documentation must be clear to determine if the condition was present at the time of the patients inpatient admission or developed during the hospital stay. Additional clarification regarding the [insert diagnosis] is requested. History/Risk Factors: acute osteomyelitis L foot with gangrene Clinical Indicators: ED: B/P 141/66, 105/55, resp 18, pulse 72/87, Temp 97.1, WBC 17.5 Treatment: L 2nd toe amputation, IV abx Definition of Present on Admission (POA): A diagnosis present at the time the order for admission to inpatient status was written. Please clarify if sepsis was POA [ x ] Y = Yes, the condition was present at the time of the order for inpatient admission. [ ] N = No, the condition was not present at the time of the order for inpatient admission. [ ] W = Clinically undetermined if the condition was present at the time of the order for inpatient admission. MTDD
== END 2021-05-15 10:45 | disposition hospice, inpatient (51) | DRG 853 ==
LOC: EC 09:27 → 4SSUR 11:38 → 3SCARD 05-12 14:56
PROVIDERS: ADMIT Internal Medicine Geriatric Medicine; ATTEND Internal Medicine Geriatric Medicine
PROC: 5A1D70Z Performance of Urinary Filtration, Intermittent, Less than 6 Hours Per Day (ICD-10-PCS; 2021-05-10)
PROC: 0Y6S0Z1 Detachment at Left 2nd Toe, High, Open Approach (ICD-10-PCS; principal; 2021-05-11 13:30)
PROC: 047L3Z1 Dilation of Left Femoral Artery using Drug-Coated Balloon, Percutaneous Approach (ICD-10-PCS; 2021-05-12 10:15)
PROC: B41G1ZZ Fluoroscopy of Left Lower Extremity Arteries using Low Osmolar Contrast (ICD-10-PCS; 2021-05-12 10:15)
PROC: B41D1ZZ Fluoroscopy of Aorta and Bilateral Lower Extremity Arteries using Low Osmolar Contrast (ICD-10-PCS; 2021-05-12 10:15)
DX: A41.9 Sepsis, unspecified organism (principal); N18.6 End stage renal disease; G93.41 Metabolic encephalopathy; L03.116 Cellulitis of left lower limb; E11.52 Type 2 diabetes mellitus with diabetic peripheral angiopathy with gangrene; I12.0 Hypertensive chronic kidney disease with stage 5 chronic kidney disease or end stage renal disease; I70.262 Atherosclerosis of native arteries of extremities with gangrene, left leg; M86.172 Other acute osteomyelitis, left ankle and foot; E11.69 Type 2 diabetes mellitus with other specified complication; E03.9 Hypothyroidism, unspecified; E11.22 Type 2 diabetes mellitus with diabetic chronic kidney disease; E11.42 Type 2 diabetes mellitus with diabetic polyneuropathy; E11.628 Type 2 diabetes mellitus with other skin complications; E11.649 Type 2 diabetes mellitus with hypoglycemia without coma; E78.5 Hyperlipidemia, unspecified; F03.90 Unspecified dementia, unspecified severity, without behavioral disturbance, psychotic disturbance, mood disturbance, and anxiety; I25.10 Atherosclerotic heart disease of native coronary artery without angina pectoris; I25.2 Old myocardial infarction; J44.9 Chronic obstructive pulmonary disease, unspecified; Z79.02 Long term (current) use of antithrombotics/antiplatelets; Z79.4 Long term (current) use of insulin; Z66 Do not resuscitate; Z51.5 Encounter for palliative care; Z79.82 Long term (current) use of aspirin; Z79.890 Hormone replacement therapy; Z79.899 Other long term (current) drug therapy; Z82.49 Family history of ischemic heart disease and other diseases of the circulatory system; Z83.3 Family history of diabetes mellitus; Z85.3 Personal history of malignant neoplasm of breast; Z86.73 Personal history of transient ischemic attack (TIA), and cerebral infarction without residual deficits; Z90.710 Acquired absence of both cervix and uterus; Z92.3 Personal history of irradiation; Z95.1 Presence of aortocoronary bypass graft; Z95.828 Presence of other vascular implants and grafts; Z96.653 Presence of artificial knee joint, bilateral; Z99.2 Dependence on renal dialysis; I70.1 Atherosclerosis of renal artery; Z91.040 Latex allergy status
CPT/HCPCS: 36200; 36415; 37224; 70450; 75625; 75716; 80048; 80053; 80202; 82140; 82565; 82607; 82746; 83735; 84100; 84443; 85025; 85610; 85730; 86140; 87040; 87070; 87075; 87077; 87186; 87205; 88305; 88311; 90935; 93306; 93880; 93922; 96365; 96366; 96375; 99285